=== PATIENT | female | born 2005 ===

== ENCOUNTER 2024-01-11 00:02 | Inpatient (IN) ==
--- NOTE | 2024-01-11 04:36 | Obstetrical Progress Note ---
Date of Service January 11, 2024 Subjective 18yo G1@ 38 + weeks admitted for labor Exam by nurse is 6/-2 FHR; CAT1 Ctx 1-3min. mild GBS neg Bedside sono; Vt anticipate VD Results & Data Vital Signs (Past 12 Hours) Vital Signs Temp Pulse Resp BP 01/11/24 04:23 86 122/77 01/11/24 00:27 36.9 C 16
--- OUTSIDE RECORDS SUMMARY | 2024-01-11 04:46 | External Medical Summary ---
Author Name Unknown Address Unknown Organization [id number]:[place] [facility] [place] [address] [facility] [address] Laboratory Report Ordering Provider Test Date Status EMILY NICOLAS 01/05/2024 10:00:35 Final Observation Date Value Abnormality Reference (Units ) Status SYNC LEUKOCYTES IN BLOOD BY AUTOMATED COUNT 01/05/2024 10:00:35 10.02 4.00-10.80 (K/uL) Final Segs 01/05/2024 10:00:35 73.6 Above high normal 35.0-65.0 (%) Final Lymphs % 01/05/2024 10:00:35 18.1 Below low normal 23.0-53.0 (%) Final Monos 01/05/2024 10:00:35 6.6 1.0-11.0 (%) Final Eosinophils 01/05/2024 10:00:35 0.8 0.0-6.0 (%) Final Basos 01/05/2024 10:00:35 0.2 0.0-2.0 (%) Final Immature Granulocyte, Percent 01/05/2024 10:00:35 0.7 0.0-2.0 (%) Final Absolute Segs 01/05/2024 10:00:35 7.38 1.80-8.00 (K/uL) Final Lymphs, absolute 01/05/2024 10:00:35 1.81 1.20-5.40 (K/ul) Final Monos, Abs 01/05/2024 10:00:35 0.66 0.00-1.10 (K/uL) Final Eos, Abs 01/05/2024 10:00:35 0.08 0.00-0.70 (K/uL) Final Basos, Abs 01/05/2024 10:00:35 0.02 0.00-0.20 (K/uL) Final Immature Granulocytes, Number 01/05/2024 10:00:35 0.07 0.00-0.20 (K/uL) Final Performing Location [facility] [facility] [place] [address] [facility] [address]
--- OUTSIDE RECORDS SUMMARY | 2024-01-11 04:46 | External Medical Summary ---
Author Name Unknown Address Unknown Organization [id number]:[place] [facility] [place] [facility] [address] [place] [address] Laboratory Report Ordering Provider Test Date Status EMILY NICOLAS 01/05/2024 10:00:35 Final Observation Date Value Abnormality Reference (Units ) Status WBC, Total 01/05/2024 10:00:35 10.02 4.00-10.80 (K/uL) Final RBC 01/05/2024 10:00:35 4.30 3.85-5.15 (M/uL) Final Hemoglobin 01/05/2024 10:00:35 12.2 12.0-15.3 (g/dL) Final HCT 01/05/2024 10:00:35 38.3 36.0-45.2 (%) Final MCV 01/05/2024 10:00:35 89.1 81.5-97.5 (fL) Final MCH 01/05/2024 10:00:35 28.4 27.0-34.0 (pg) Final MCHC 01/05/2024 10:00:35 31.9 32.0-36.0 (g/dL) Final RDW 01/05/2024 10:00:35 14.2 11.5-15.5 (%) Final Platelets 01/05/2024 10:00:35 230 140-400 (K/uL) Final MPV 01/05/2024 10:00:35 10.5 6.6-11.1 (fL) Final Nucleated erythrocytes/100 leukocytes [Ratio] in Blood by Automated count 01/05/2024 10:00:35 0 <=0 (/100 WBCs) Final Performing Location [facility] [place] [address] [place] [address]
--- OUTSIDE RECORDS SUMMARY | 2024-01-11 04:46 | External Medical Summary | Summary of Care ---
Author Name Unknown Organization [facility] Address [address] [place] [address] Phone [phone] Care Team Providers Care Food Operations Manager Name Role Phone Oliva Paredes MD Primary Care Prov ider Reason for Visit * Reason Comments IV Therapy Venofer Encounter Details Date Type Department Care Team (Latest Contact Info) Description 12/16/2023 11:00 AM EDT Hem/Onc Treatment Hematology/Oncology Treatment, [place] [address] [place] [address] Rupinder, Chair 6 Hem Onc Scene [address] [place] [address] Iron deficiency anemia, unspecified iron deficiency anemia type* Allergies No known active allergiesdocumented as of this encounter (statuses as of 01/02/2024) Medications Medication Sig Dispensed Refills Start Date End Date Status Plus 27-1 MG Oral TabletIndications:Pre gnancy examination or test, positive result Take 1 Tablet by mouth in the morning. 100 Tablet 3 09/23/2023 Active Iron-Vitamin C 65-125 MG Oral Tablet (Vitron C) Take 1 Tablet by mouth in the morning and 1 Tablet before bedtime. 60 Tablet 3 10/09/2023 Active B-12 1000 MCG Oral Tablet Take 1,000 mcg by mouth in the morning. 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 Iron deficiency anemia 11/24/2023 Encounter for supervision of normal first in third trimester 11/16/2023 Antepartum anemia complicating 024 Overview: Hgb at 25 weeks 11.0 Vitron C BID started, repeat CBC in 4 weeks Late care 10/09/2023 Overview: NOB at 24 weeks Medication exposure during first trimester of pr egnancy 10/09/2023 Overview: Had Nexplanon while , now removed. Estimated Date of Delivery Comme nts Yes 01/22/2024 Based on Ultraso und documented as of this encounter (statuses as of 01/02/2024) Immunizations Name Administration Dates Next Due COVID-19 mRNA, LNP-s, No Pre serve, 2-Dose Series (Pfizer) 03/16/2021 DTaP Dipth/Tet/Acell Pertussis (Infanrix), Peds 12/04/2005,03/26/2005,01/24/2005,11/11 H1N1 2009 Influenza, IM 08/02/2009,07/05/2009 HIB PRP-T, 4 dose (ActHib) 12/04/2005,,01/24/2005,11/11 HPV Vaccine, 9-Valent 02/08/2019,11/08/2015 Hep A - Hepatitis A (ped/ado le, 1-18 Yrs) 03/10/2007,09/08/2006 Hepatitis B, 0-19 yrs 06/05/2005,2004,08/24 IPV - Polio Virus Vaccine (Inact) 2008,06/05/2005,01/24/2005,11/11 MMR - Measles/Mumps/Rubella Vaccine 09/08/2008,0 09/05/2005 Meningococcal Conjugate Vacc ine (Menactra/Menveo) 11/08/2015 Meningococcal MCV4O Conjugat e Vaccine (Menveo) 08/08/2022 PPD 09/07/2018 Pneumococcal Conjugate Vacci ne, 7 Valent 07/06/2006,03/26/2005,01/24/2005,11/11 Seasonal Influenza, PF, 6 M & above, IM , (FluLaval or Fluzone) 11/08/2015,07/11/2014,06/15/2012,07/01,07/23/2010 TDAP (age 11 and older)(Adacel) 11/08/2015 Varicella Vaccine (Chicken Pox) 09/08/2008,09/05 documented as of this encounter Social History Tobacco Use Types Packs/Day Years Used Date Smoking Tobacco: Never Smokeless Tobacco: Never Tobacco Cessation:Counseling Given: Not Answered Alcohol Use Standard Drinks/Week Comments No 0 (1 standard drink = 0.6 oz pur e alcohol) AUDIT-C Answer Date Recorded Frequency of Alcohol Consumption Never 11/18/2018 Average Number of Drinks Not on file 019 Frequency of Binge Drinking Not on file 10/23 PHQ-2 Answer Date Recorded PHQ Adult Total Score 0 11/16/2023 Hunger Vital Sign Answer Date Recorded Within the past 12 months, y ou worried that your food would run out before you got the money to buy more. Never true 10/08/19 Within the past 12 months, t he food you bought just didn't last and you didn't have money to get more. Never true 10/08/2023 [place] Depression Scale Answer Date Recorded [place] Depression Scale Total 0 11/16/2023 The thought of harming myself has occurred to me . Never 11/16/2023 Estimated Date of Delivery Comme nts Yes 01/22/2024 Based on Ultraso und Sex and Gender Information Value Date Recorded Sex Assigned at Female 10/08/2023 1:23 PM EST Gender Identity Female 10/08/2023 1:23 PM EST Sexual Orientation Straight 10/08/2023 1: 23 PM EST Job Start Date Occupation Industry Not on file Not on file Not on file documented as of this encounter Last Filed Vital Signs Vital Sign Reading Time Taken Comments Blood Pressure 110/73 12/16/2023 11:20 AM EDT Pulse 91 12/16/2023 11:20 AM EDT Temperature 36.3 C (97.4 F) 12/16/2023 11:20 AM E DT Respiratory Rate 16 12/16/2023 11:20 AM EDT Oxygen Saturation 96% 12/16/2023 11:20 AM EDT Inhaled Oxygen Concentration - - Weight - - Height - - Body Mass Index - - documented in this encounter Nursing Notes * Talisha Demarco LPN - 12/16/2023 12:58 PM EDT IV therapy venofer completed. IV access disconnected, site cleaned and bandaged. Patient was discharged in stable condition. * Talisha Demarco LPN - 12/16/2023 11:21 AM EDT Patient arrived Chair 5 for IV therapy Venofer. Vital signs are stable. IV access successful at theleft lateral antecubital vein. Ankles showed some edema. Chair was reclined for elevation of the legs. Call cole within reach. documented in this encounter Plan of Treatment Upcoming Encounters Date Type Department Care Team (Late st Contact Info) Description 01/05/2024 9:00 AM EDT Office Visit Gynecology/Obstetrics [facility] [address] [facility] [facility] [place] [address] Eryn Chaney CNM [address] [facility] [address] 01/05/2024 10:10 AM EDT [facility] [address] [facility] [place] [phone] VargheseNaima montoya [facility] [address] [facility] [address] 01/07/2024 9:30 AM EDT Pharmacy Pharmacy, [place] [address] [place], [place] [phone] Clinic, [facility] [address] [place] [address] Health Maintenance Due Date Last Done Comments COVID-19 Vaccine ( season) 2023 03/16/2021 Yearly Wellness Visit 10/06/2023 10/06/2022, 019 Influenza Vaccine (FLU shot) (Season Ended) 2024 11/08/2015, 07/11/2014, 06/15/2012, Additional history exists Gonorrhea / Chlamydia Screen 10/08/2024 10/08/2023, 10/06/2022 Depression Screening 11/15/2024 11/16/2023 DTaP,Tdap,and Td Vaccines (6 - Td or Tdap) 11/07/2025 11/08/2015, 12/04/2005, 03/26/2005, Additional history exists Hepatitis B Completed 06/05/2005, 09/25, 2004 GARDASIL-HPV IMMUNIZATION SERIES Completed 02/08/2019, 11/08/2015 MENINGOCOCCAL (MENACTRA/MENVEO) Completed 08/08/2022, 11/08/2015 Pneumococcal Vaccine: Pediatrics (0 to 5 Years) and At-Risk Patients (6 to 64 Years) Aged Out No longer eligible based on patient's age to complete this topic documented as of this encounter Medical Devices Not on filedocumented as of this encounter Visit Diagnoses Diagnosis Iron deficiency anemia, unspecified iron deficiency anemia type- Primary documented in this encounter Administered Medications Inactive Administered Medications - up to 3 most recent administrations Medication Order MAR Action Action Date Dose Rate Site Iron Sucrose (Venofer) 300 mg in NSS 250 mL ivpb 300 mg, IV Piggyback, ONCE, 1 dose, On Thu12/16/23 at 1300, Administer over 90 Minutes Start Infusion 12/16/2023 11:17 AM EDT 300 mg 193.33 mL/hr NSS infusion 500 mL, Intravenous, at 50 mL/hr, CONTINUOUS, Starting on Thu12/16/23 at 1230, Until Thu12/16/23 at 1340 Start Infusion 12/16/2023 11:17 AM EDT 500 mL 50 mL/hr documented in this encounter Care Teams Food Operations Manager Relationship Specialty Start Date End Date Oliav Paredes MD [address] [place] [address] [place] [phone] PCP - General Family Medicine 09/21/23 documented as of this encounter
--- OUTSIDE RECORDS SUMMARY | 2024-01-11 04:46 | External Medical Summary ---
Author Name Unknown Address Unknown Organization K01:LABORATORY [place] [address] [place] [address] Laboratory Report Ordering Provider Test Date Status EMILY NICOLAS 01/05/2024 10:00:35 Final Observation Date Value Abnormality Reference (Units ) Status Retic, % (auto) 01/05/2024 10:00:35 2.21 Above high normal 0.80-1.90 (%) Final Reticulocytes, Absolute 01/05/2024 10:00:35 95.0 31.3-100.1 (K/uL) Final Reticulocyte fraction, immature 01/05/2024 10:00:35 26.1 Above high normal 2.5-20.6 (%) Final Reticulocyte HGB 01/05/2024 10:00:35 32.2 29.7-37.4 (pg) Final Performing Location LABORATORY [facility] - [facility] [place] [address] [address]
--- OUTSIDE RECORDS SUMMARY | 2024-01-11 04:46 | External Medical Summary | Summary of Care ---
Author Name Unknown Organization [facility] Address [address] [place] [address] Phone [phone] Care Team Providers Care Metal Drilling Machine Operator Name Role Phone Oliva Paredes MD Primary Care Prov ider Reason for Visit * Reason Onset Date Comments Left Message Anemia Follow-Up 12/17/2023 Encounter Details Date Type Department Care Team (Late st Contact Info) Description 12/17/2023 2:30 PM EDT Pharmacy Pharmacy, [place] [address] [place], [place] [phone] Clinic, [facility] [address] [place], [place] [phone] Iron deficiency anemia, unspecified iron deficiency anemia type* Allergies No known active allergiesdocumented as of this encounter (statuses as of 12/17/2023) Medications Medication Sig Dispensed Refills Start Date [...] as of this encounter (statuses as of 12/17/2023) Active Problems Problem Noted Date Diagnosed Date [...] as of this encounter (statuses as of 12/17/2023) Immunizations Name Administration Dates Next Due COVID-19 mRNA, LNP-s, No Pre serve, 2-Dose Series (R[employer]) 03/16/2021 DTaP Dipth/Tet/Acell Pertussis (Infanrix), Peds 12/04/2005,03/26/2005,01/24/2005,11/11 [...] Date Smoking Tobacco: Never Smokeless Tobacco: Never Alcohol Use Standard Drinks/Week Comments No 0 [...] money to buy more. Never true 10/08/19 24 Within the past 12 months, t he food you bought just didn't last and you didn't have money to get more. Never true 10/08/2023 [place] Depression Scale Answer Date Recorded [place] Depression Scale Total 0 11/16/2023 The thought [...] on file documented as of this encounter Progress Notes * Ina Washburn RPh - 12/17/2023 4:21 PM EDT CBCd, ferritin, iron screen, retic panel, B12, FA ordered for 01/06/24. Ina Washburn, PharmD, BCPS Clinical Pharmacist [facility] (P: [phone]) 12/17/2023 4:21 PM * Irma Guadalupe, backing in machine tender - 12/17/2023 9:12 AM EDT Patient Phone Numbers MyG sent to patient. Patient received Venofer 300 mg x 3 on 11/30, 12/07 and 12/15. Labs due on 01/05. GA: [id number] Estimated Date of Delivery: 01/22/24 Pharmacist - please place appropriate lab orders. Thank you, Irma Guadalupe Firewall Administrator 12/17/2023,9:12 AM documented in this encounter Plan of Treatment Upcoming Encounters Date Type Department Care Team (Late st Contact Info) Description 01/01/2024 11:45 AM EDT Office Visit Gynecology/Obstetrics [facility] [address] [facility] [place] [address] Rebekah Rios PA-C [address] [facility] [place] [address] 01/06/2024 4:00 PM EDT Laboratory Laboratory, [facility] [address] [facility] [place] [phone] [facility] [address] 01/07/2024 9:30 AM EDT Pharmacy Pharmacy, [place] [address] [place] [address] Clinic, [facility] [address] [place] [address] Scheduled Orders Name Type Priority Associated Diagnoses Orde r Schedule CBC WITH WBC DIFFERENTIAL Lab Routine Iron deficiency anemia, unspecified iron deficiency anemia type Expected: 01/06/2024, Expires: 11/15/2024 IRON SCREEN, INCLUDING TIBC Lab Routine Iron deficiency anemia, unspecified iron deficiency anemia type Expected: 01/06/2024, Expires: 11/15/2024 FERRITIN Lab Routine Iron deficiency anemia, unspecified iron deficiency anemia type Expected: 01/06/2024, Expires: 11/15/2024 RETICULOCYTE PANEL Lab Routine Iron deficiency anemia, unspecified iron deficiency anemia type Expected: 01/06/2024, Expires: 11/15/2024 FOLIC ACID Lab Routine Iron deficiency anemia, unspecified iron deficiency anemia type Expected: 01/06/2024, Expires: 11/15/2024 VITAMIN B12 Lab Routine Iron deficiency anemia, unspecified iron deficiency anemia type Expected: 01/06/2024, Expires: 11/15/2024 Health Maintenance Due Date Last Done Comments [...] anemia type- Primary documented in this encounter Care Teams Metal Drilling Machine Operator Relationship Specialty Start Date End Date Oliva Paredes MD [address] [place] [address] [place] [address] PCP - General Family Medicine 09/21/23 documented as of this encounter
--- OUTSIDE RECORDS SUMMARY | 2024-01-11 04:46 | External Medical Summary ---
Author Name Unknown Address Unknown Organization K01[place] [facility] [place] [facility] [address] [facility] [address] Laboratory Report Ordering Provider Test Date Status EPI DIETRICH 01/05/2024 09:40:15 Final Observation Date Value Abnormality Reference (Units ) Status Streptococcus agalactiae DNA [Presence] in Specimen by SANTO with probe detection 01/05/2024 09:40:15 Negative Negative Final No Group B Streptococcus det ected by culture-enhanced PCR (amplified probe).
The collection of vaginal/rectal swab specimen combinations (FDA approved specimen type) is optimal for the detection of Group B Streptococcus. Single source collection (vaginal only or rectal only) or alternate specimen sources may lead to false negative results. Performing Location [facility] [facility] [place] [address] [facility] [address]
--- OUTSIDE RECORDS SUMMARY | 2024-01-11 04:46 | External Medical Summary ---
Author Name Unknown Address Unknown Organization K01:LAB[facility]ATORY [facility] [place] [address] [place] [address] Laboratory Report Ordering Provider Test Date Status EMILY NICOLAS 01/05/2024 10:00:35 Final Observation Date Value Abnormality Reference (Units ) Status Vitamin B12 01/05/2024 10:00:35 792 025-4646 (pg/mL) Final Performing Location LABORATORY [facility] [place] - [address] [place] [address]
--- OUTSIDE RECORDS SUMMARY | 2024-01-11 04:46 | External Medical Summary | Summary of Care ---
Author Name Unknown Organization [facility] Address [address] [place] [address] Phone [phone] Care Team Providers Care Enamel Sprayer Name Role Phone Oliva Paredes MD Primary Care Prov ider Encounter Details Date Type Department Care Team (Late Contact Info) Description 12/15/2023 Orders Only Pharmacy, [place] [address] [place] [address] Radames Perdomo, [facility] [address] [place] [address] Allergies No known active allergiesdocumented as of this encounter (statuses as of 12/15/2023) Medications Medication Sig Dispensed Refills Start Date [...] as of this encounter (statuses as of 12/15/2023) Active Problems Problem Noted Date Diagnosed Date Iron deficiency anemia 11/24/2023 Encounter for supervision [...] as of this encounter (statuses as of 12/15/2023) Immunizations Name Administration Dates Next Due COVID-19 [...] money to get more. Never true 10/08/2023 [place] Depression Scale Answer Date Recorded [place] Depression Scale Total 0 11/16/2023 The thought [...] on file documented as of this encounter Plan of Treatment Upcoming Encounters Date Type Department Care Team (Late st Contact Info) Description 12/16/2023 11:00 AM EDT Hem/Onc Treatment Hematology/Oncology Treatment, [place] [address] [place] [phone] Rupinder, Chair 6 Hem Onc Scenery [address] [facility] [address] 12/16/2023 1:45 PM EDT Office Visit Gynecology/Obstetrics [facility] [address] [place] [address] BackerShaista CRNP [address] [place] [address] 12/17/2023 2:30 PM EDT Pharmacy Pharmacy, [place] [address] [place] [address] Clinic, [place] [address] [place] [address] Health Maintenance Due Date Last Done Comments [...] Not on filedocumented as of this encounter Care Teams Enamel Sprayer Relationship Specialty Start Date End Date Oliva Paredes MD [address] [place] [address] [place] [address] PCP - General Family Medicine 09/21/23 documented as of this encounter
--- OUTSIDE RECORDS SUMMARY | 2024-01-11 04:46 | External Medical Summary ---
Author Name Unknown Address Unknown Organization K01:[facility] [facility] [place] [address] [place] [address] Laboratory Report Ordering Provider Test Date Status FIDENCIOEMILY 01/05/2024 10:00:35 Final Observation Date Value Abnormality Reference (Units ) Status Iron 01/05/2024 10:00:35 84 33-151 (ug /dL) Final Iron-binding capacity 01/05/2024 10:00:35 417 250-425 (ug/dL) Final Transferrin Sat % 01/05/2024 10:00:35 20 15 -55 (%) Final Performing Location [facility] [place] [address] [place] [address]
--- OUTSIDE RECORDS SUMMARY | 2024-01-11 04:46 | External Medical Summary | Summary of Care ---
Author Name Unknown Organization [facility] Address [address] [place] [place] [address] Phone [phone] Care Team Providers Care Wrap Turner Name Role Phone Oliva Paredes MD Primary Care Prov ider Encounter Details Date Type Department Care Team (Late st Contact Info) Description 01/06/2024 Telephone Gynecology/Obstetrics [facility] [address] [facility] [place] [address] Eryn Chaney, [facility] [address] [place] [address] Allergies No known active allergiesdocumented as of this encounter (statuses as of 01/06/2024) Medications Medication Sig Dispensed Refills Start Date [...] as of this encounter (statuses as of 01/06/2024) Active Problems Problem Noted Date Diagnosed Date [...] as of this encounter (statuses as of 01/06/2024) Immunizations Name Administration Dates Next Due COVID-19 mRNA, LNP-s, No Pre serve, 2-Dose Series ([employer]) 03/16/2021 DTaP Dipth/Tet/Acell Pertussis (Infanrix), Peds 12/04/2005,03/26/2005,01/24/2005,11/11 [...] money to get more. Never true 10/08/2023 [place] Depression Scale Answer Date Recorded [place] Depression Scale Total 0 11/16/2023 The thought [...] on file documented as of this encounter Miscellaneous Notes * Telephone Encounter - Rachele Leonard LPN - 01/06/2024 12:15 PM EDT ----- Message from Eryn Chaney CNM sent at 01/06/2024 11:50 AM EDT ----- Please let patient know her GBS swab was negative and her urine buprenorphine screen was negative. Thanks! Eryn Chaney CNM documented in this encounter Plan of Treatment Upcoming Encounters Date Type Department Care Team (Late st Contact Info) Description 01/07/2024 9:30 AM EDT Pharmacy Pharmacy, [place] [address] [place], [place] [phone] Clinic, [facility] [address] [place] [address] 01/12/2024 9:30 AM EDT Office Visit Gynecology/Obstetrics [facility] [address] [facility] [place] [address] Ina Diaz, [place] [address] [facility] [place] [address] Health Maintenance Due Date Last Done Comments [...] filedocumented as of this encounter Care Teams Wrap Turner Relationship Specialty Start Date End Date Oliva Paredes MD [address] [place] [address] [place] [address] PCP - General Family Medicine 09/21/23 documented as of this encounter
--- OUTSIDE RECORDS SUMMARY | 2024-01-11 04:46 | External Medical Summary | Summary of Care ---
Author Name Unknown Organization [facility] Address [address] [place] [address] Phone [phone] Care Team Providers Care Stope Miner Name Role Phone Oliva Paredes MD Primary Care Prov ider Reason for Visit * Reason Comments IV Therapy Venofer Encounter Details Date Type Department Care Team (Latest Contact Info) Description 12/16/2023 11:00 AM EDT Hem/Onc Treatment Hematology/Oncology Treatment, [place] [address] [place] [address] Rupinder, Chair 6 Hem Onc Scene [address] [place] [address] Iron deficiency anemia, unspecified iron deficiency anemia type* Allergies No known active allergiesdocumented as of this encounter (statuses as of 12/16/2023) Medications Medication Sig Dispensed Refills Start Date [...] as of this encounter (statuses as of 12/16/2023) Active Problems Problem Noted Date Diagnosed Date [...] as of this encounter (statuses as of 12/16/2023) Immunizations Name Administration Dates Next Due COVID-19 mRNA, LNP-s, No Pre serve, 2-Dose Series (Pfizer) 03/16/2021 DTaP Dipth/Tet/Acell Pertussis (Infanrix), Peds 12/04/2005,03/26/2005,01/24/2005,11/11 H1N1 2008 Influenza, IM 08/02/2009,07/05/2009 HIB PRP-T, 4 dose [...] money to get more. Never true 10/08/2023 [place] Depression Scale Answer Date Recorded [place] Depression Scale Total 0 11/16/2023 The thought [...] Team (Late st Contact Info) Description 12/16/2023 1:45 PM EDT Office [facility] [address] [facility] [place] [address] Backer, SURYA Norman [address] [facility] [place] [address] 12/17/2023 2:30 PM EDT Pharmacy Pharmacy, [place] [address] [place] [address] Clinic, [place] [address] [place] [address] Health Maintenance Due Date Last Done Comments [...] Primary documented in this encounter Administered Medications Active Administered Medications - up to 3 most recent administrations Medication Order MAR Action Action Date Dose Rate Site diphenhydrAMINE (Benadryl) inj 50 mg 50 mg, IV Push, ONCE PRN Other, Hypersensitivity Reaction, Starting on Thu12/16/23 at 1115, Until Tawana 12/17/23 at 1114, For 24 hours EPINEPHrine 1 MG/ML inj 0.3 mg 0.3 mg, Intramuscular, ONCE PRN Other, Hypersensitivity Reaction or Anaphylaxis, Starting on Thu12/16/23 at 1115, Until Tawana 12/17/23 at 1114, For 24 hours hEParin 100 UNIT/ML Lock Flush inj 500 Units 500 Units (5 mL), IV Lock, PRN Other, IV Flush, Starting on Thu12/16/23 at 1115, Until Tawana 12/17/23 at 1114, For 24 hours, Do not flush if lock, PICC, or central line not in place; IV infusing or unable to flush. Hydrocortisone Sod Suc (PF) (Solu-Cortef) inj 100 mg 100 mg, IV Push, ONCE PRN Other, Hypersensitivity Reaction, Starting on Thu12/16/23 at 1115, Until Tawana 12/17/23 at 1114, For 24 hours NSS infusion 500 mL, Intravenous, at 50 mL/hr, CONTINUOUS, Starting on Thu12/16/23 at 1230, Until Thu12/16/23 at 2229 Start Infusion 12/16/2023 11:17 AM EDT 500 mL 50 mL/hr oxygen GAS Inhalation, OXYGEN, First dose on Thu12/16/23 at 1600, Until Discontinued, Device/Managed by: Low Flow Device, Goal SPO2 (%): 91-95, Starting Device: Nasal Cannula, Initial Flow Rate (LPM): 2, Lowest Support: Nasal Cannula: Flow 0-6 LPM. Titrate up/down by 1 LPM., Higher Support: Non-Rebreather (NRB) Mask: Minimum of 10 LPM. Titrate to maintain bag inflation., Titration Interval: Q2 minutes and as needed., Notify Provider: For sudden DECREASE in resting SPO2 to less than 85% and when escalating delivery device., Wean patient off Oxygen when the oxygen saturation is greater than or equal to 93% sodium chloride 0.9 % flush central line 10 mL 10 mL, IV Push, PRN Other, IV Flush, Starting on Thu12/16/23 at 1115, Until Tawana 12/17/23 at 1114, For 24 hours, Do not flush if lock, PICC, or central line not in place; IV infusing or unable to flush. Inactive Administered Medications - up to 3 most recent administrations Medication Order MAR Action Action Date Dose Rate Site Iron Sucrose (Venofer) 300 mg in NSS 250 mL ivpb 300 mg, IV Piggyback, ONCE, 1 dose, On Thu12/16/23 at 1300, Administer over 90 Minutes Start Infusion 12/16/2023 11:17 AM EDT 300 mg 193.33 mL/hr documented in this encounter Care Teams Stope Miner Relationship Specialty Start Date End Date Oliva Paredes MD [address] [place] [address] [place] [id number] PCP - General Family Medicine 09/21/23 documented as of this encounter
--- OUTSIDE RECORDS SUMMARY | 2024-01-11 04:46 | External Medical Summary | Summary of Care ---
Author Name Unknown Organization [facility] Address [address] [place] [address] Phone [phone] Care Team Providers Care Coal Cutter Name Role Phone Oliva Paredes MD Primary Care Prov ider Reason for Visit * Reason Comments IV Therapy Venofer. Encounter Details Date Type Department Care Team (Latest Contact Info) Description 12/01/2023 11:00 AM EDT Hem/Onc Treatment Hematology/Oncology Treatment, [place] [address] [place] [address] Rupinder, Chair 6 Hem Onc Scene [address] [place] [address] Iron deficiency anemia, unspecified iron deficiency anemia type* Allergies No known active allergiesdocumented as of this encounter (statuses as of 01/05/2024) Medications Medication Sig Dispensed Refills Start Date [...] as of this encounter (statuses as of 01/05/2024) Active Problems Problem Noted Date Diagnosed Date [...] as of this encounter (statuses as of 01/05/2024) Immunizations Name Administration Dates Next Due COVID-19 [...] money to get more. Never true 10/08/2023 [place] Depression Scale Answer Date Recorded [place] Depression Scale Total 0 11/16/2023 The thought [...] Sign Reading Time Taken Comments Blood Pressure 129/76 12/01/2023 11:00 AM EDT Pulse 98 12/01/2023 11:00 AM EDT Temperature 36.7 C (98.1 F) 12/01/2023 11:00 AM E DT Respiratory Rate 18 12/01/2023 11:00 AM EDT Oxygen Saturation 98% 12/01/2023 11:00 AM EDT Inhaled Oxygen Concentration - - Weight - - Height - - Body Mass Index - - documented in this encounter Nursing Notes * Linda Cordoba RN - 12/01/2023 12:46 PM EDT Goals: Patient will remain free from injury. Possible barriers to meeting goals: Fall risk d/t ambulation with IV pole. Stability of the patient: Moderately stable - low risk of patient condition declining or worsening Summary regarding today's goals: Met: Patient remained free of injury. Patient tolerated infusion well. Discharged in stable condition. * Linda Cordoba RN - 12/01/2023 11:17 AM EDT Chair 3. Patient arrived for Venofer infusion 08/26 with no acute complaints. Patient was oriented to infusionprocess and infusion room, call cole was given to patient. Patient verbalized understanding. PIV established. Safety and Risk for Injury Patient will remain free from injury. Ensure appropriate safety devices are available. Provide and maintain safe environment. documented in this encounter Plan of Treatment Upcoming Encounters Date Type Department Care Team (Late st Contact Info) Description 01/05/2024 9:00 AM EDT [facility] [address] [facility] [place] [address] Eryn Chaney CNM [address] [place] [address] 01/05/2024 10:10 AM EDT [facility] [address] [facility] [place] [phone] [facility] [address] [facility] [place] [address] 01/07/2024 9:30 AM EDT Pharmacy Pharmacy, [place] [address] [place], [place] [id number] Clinic, [facility] [address] [place] [address] Health Maintenance Due Date Last Done Comments [...] mg, IV Piggyback, ONCE, 1 dose, On Thu12/01/23 at 1230, Administer over 90 Minutes Start Infusion 12/01/2023 11:10 AM EDT 300 mg 166.67 mL/hr NSS infusion 500 mL, Intravenous, at 50 mL/hr, CONTINUOUS, Starting on Thu12/01/23 at 1200, Until Thu12/01/23 at 1647 Start Infusion 12/01/2023 11:10 AM EDT 500 mL 50 mL/hr documented in this encounter Care Teams Coal Cutter Relationship Specialty Start Date End Date Oliva Paredes MD [address] [place] [address] [place]INE Ferreira [phone] PCP - General Family Medicine 09/21/23 documented as of this encounter
--- OUTSIDE RECORDS SUMMARY | 2024-01-11 04:46 | External Medical Summary | Summary of Care ---
Author Name Unknown Organization [facility] Address [address] [place] [address] Phone [phone] Care Team Providers Care Dish Network Installer Name Role Phone Oliva Paredes MD Primary Care Prov ider Reason for Visit * Reason Comments IV Therapy venofer Encounter Details Date Type Department Care Team (Latest Contact Info) Description 12/08/2023 3:00 PM EDT Hem/Onc Treatment Hematology/Oncology Treatment, [place] [address] [place] [address] Rupinder, Chair 6 Hem Onc Scene [address] [place] [address] Iron deficiency anemia, unspecified iron deficiency anemia type* Allergies No known active allergiesdocumented as of this encounter (statuses as of 12/08/2023) Medications Medication Sig Dispensed Refills Start Date [...] as of this encounter (statuses as of 12/08/2023) Active Problems Problem Noted Date Diagnosed Date [...] as of this encounter (statuses as of 12/08/2023) Immunizations Name Administration Dates Next Due COVID-19 [...] money to get more. Never true 10/08/2023 [place] Depression Scale Answer Date Recorded [place] Depression Scale Total 0 11/16/2023 The thought [...] Sign Reading Time Taken Comments Blood Pressure 121/72 12/08/2023 2:53 PM EDT Pulse 93 12/08/2023 2:53 PM EDT Temperature 36.8 C (98.3 F) 12/08/2023 2:53 PM ED T Respiratory Rate 16 12/08/2023 2:53 PM EDT Oxygen Saturation 96% 12/08/2023 2:53 PM EDT Inhaled Oxygen Concentration - - Weight - - Height - - Body Mass Index - - documented in this encounter Nursing Notes * Linda Cordoba RN - 12/08/2023 4:42 PM EDT Safety and Risk for Injury Patient will remain free from injury. Ensure appropriate safety devices are available. Provide and maintain safe environment. Goals: Patient will remain free from injury. Possible barriers to meeting goals: Fall risk d/t ambulation with IV pole. Stability of the patient: Moderately stable - low risk of patient condition declining or worsening Summary regarding today's goals: Met: Patient remained free of injury. Patient tolerated infusion well. Discharged in stable condition. * Talisha Demarco LPN - 12/08/2023 3:10 PM EDT Patient arrived for IV therapy Venofer Chair 9. Vital signs are stable. IV attempt successful at the left metacarpal vein. Patient tolerated and NSS connected and started with Venofer. documented in this encounter Plan of Treatment Upcoming Encounters Date Type Department Care Team (Late st Contact Info) Description 12/16/2023 11:00 AM EDT Hem/Onc Treatment Hematology/Oncology Treatment, [place] [address] [place] [address] Rupinder, Chair 6 Hem Onc Scenery 200 [facility] [place] [address] 12/16/2023 1:45 PM EDT Office Visit Gynecology/Obstetrics [facility] [address] [place] [address] Backer, SURYA Norman [address] [place] [address] 12/17/2023 2:30 PM EDT Pharmacy Pharmacy, [place] [address] [place], [place] [id number] Clinic, [place] [address] [place] [address] Health Maintenance Due Date Last Done Comments [...] ONCE PRN Other, Hypersensitivity Reaction, Starting on Thu12/08/23 at 1453, Until Thu12/09/23 at 1452, For 24 hours EPINEPHrine 1 MG/ML inj 0.3 mg 0.3 mg, Intramuscular, ONCE PRN Other, Hypersensitivity Reaction or Anaphylaxis, Starting on Thu12/08/23 at 1453, Until Thu12/09/23 at 1452, For 24 hours hEParin 100 UNIT/ML Lock Flush inj 500 Units 500 Units (5 mL), IV Lock, PRN Other, IV Flush, Starting on Thu12/08/23 at 1453, Until Thu12/09/23 at 1452, For 24 hours, Do not flush if lock, PICC, or central line not in place; IV infusing or unable to flush. Hydrocortisone Sod Suc (PF) (Solu-Cortef) inj 100 mg 100 mg, IV Push, ONCE PRN Other, Hypersensitivity Reaction, Starting on Thu12/08/23 at 1453, Until Thu12/09/23 at 1452, For 24 hours NSS infusion 500 mL, Intravenous, at 50 mL/hr, CONTINUOUS, Starting on Thu12/08/23 at 1600, Until Thu12/09/23 at 0159 Start Infusion 12/08/2023 3:03 PM EDT 500 mL 50 mL/hr oxygen GAS Inhalation, OXYGEN, First dose on Thu12/08/23 at 1600, Until Discontinued, Device/Managed by: Low [...] Push, PRN Other, IV Flush, Starting on Thu12/08/23 at 1453, Until Thu12/09/23 at 1452, For 24 hours, Do not flush if lock, PICC, or central line not in place; IV infusing or unable to flush. Inactive Administered Medications - up to 3 most recent administrations Medication Order MAR Action Action Date Dose Rate Site Iron Sucrose (Venofer) 300 mg in NSS 250 mL ivpb 300 mg, IV Piggyback, ONCE, 1 dose, On Thu12/08/23 at 1630, Administer over 90 Minutes Start Infusion 12/08/2023 3:04 PM EDT 300 mg 193.33 mL/hr documented in this encounter Care Teams Dish Network Installer Relationship Specialty Start Date End Date Oliva Paredes MD [address] [place] [address] [place] Ferreira [phone] PCP - General Family Medicine 09/21/23 documented as of this encounter
--- OUTSIDE RECORDS SUMMARY | 2024-01-11 04:46 | External Medical Summary | Summary of Care ---
Author Name Unknown Organization [facility] Address [address] [place] [address] Phone [phone] Care Team Providers Care Police Dispatcher Name Role Phone Oliva Paredes MD Primary Care Prov ider Reason for Visit * Reason Comments Outpatient Testing Encounter Details Date Type Department Care Team (Late st Contact Info) Description 01/05/2024 10:10 AM EDT Laboratory Laboratory, [facility] [address] [facility] [place] [id number] [facility] [address] [place] [id number] Iron deficiency anemia, unspecified iron deficiency anemia type Allergies No known active allergiesdocumented as of [...] money to get more. Never true 10/08/2023 [place] Depression Scale Answer Date Recorded [place] Depression Scale Total 0 11/16/2023 The thought [...] Description 01/07/2024 9:30 AM EDT Pharmacy Pharmacy, [place] [address] [place] [address] Clinic, [place] [address] [place] [address] 01/12/2024 9:30 AM EDT Office Visit Gynecology/Obstetrics [facility] 132 [facility] [place] [address] Ina Diaz, [address] [place] [address] Pending Results Name Type Priority Associated Diagnoses Date /Time CBC WITH WBC DIFFERENTIAL Lab Routine Iron deficiency anemia, unspecified iron deficiency anemia type 01/05/2024 10:00 AM EDT IRON SCREEN, INCLUDING TIBC Lab Routine Iron deficiency anemia, unspecified iron deficiency anemia type 01/05/2024 10:00 AM EDT FERRITIN Lab Routine Iron deficiency anemia, unspecified iron deficiency anemia type 01/05/2024 10:00 AM EDT RETICULOCYTE PANEL Lab Routine Iron deficiency anemia, unspecified iron deficiency anemia type 01/05/2024 10:00 AM EDT FOLIC ACID Lab Routine Iron deficiency anemia, unspecified iron deficiency anemia type 01/05/2024 10:00 AM EDT VITAMIN B12 Lab Routine Iron deficiency anemia, unspecified iron deficiency anemia type 01/05/2024 10:00 AM EDT CBC Lab Routine Iron deficiency anemia, unspecified iron deficiency anemia type 01/05/2024 10:00 AM EDT DIFFERENTIAL, AUTOMATED Lab Routine Iron deficiency anemia, unspecified iron deficiency anemia type 01/05/2024 10:00 AM EDT Health Maintenance Due Date Last Done Comments [...] deficiency anemia, unspecified iron deficiency anemia type documented in this encounter Care Teams Police Dispatcher Relationship Specialty Start Date End Date Oliva Paredes MD [address] [place] [address] [place] Fer[place] [address] PCP - General Family Medicine 09/21/23 documented as of this encounter
--- OUTSIDE RECORDS SUMMARY | 2024-01-11 04:46 | External Medical Summary | Summary of Care ---
Author Name Unknown Organization [facility] Address [address] [facility] [place] [address] Phone [phone] Care Team Providers Care Historical Society Director Name Role Phone Oliva Paredes MD Primary Care Prov ider Reason for Visit * Reason Comments Return Visit Encounter Details Date Type Department Care Team ([facility] Contact Info) Description 12/16/2023 1:45 PM EDT Office Visit Gynecology/Obstetric s [place] [address] [place] [address] BackerShaista CRNP [address] [place] [address] Encounter for supervision of normal first in third trimester*; Antepartum anemia complicating ; Late care; Medication exposure during first trimester of ; Obesity in , antepartum Allergies No known active allergiesdocumented as of [...] money to get more. Never true 10/08/2023 [place] Depression Scale Answer Date Recorded [place] Depression Scale Total 0 11/16/2023 The thought [...] Sign Reading Time Taken Comments Blood Pressure 118/64 12/16/2023 1:44 PM EDT Pulse - - Temperature - - Respiratory Rate - - Oxygen Saturation - - Inhaled Oxygen Concentration - - Weight 103 kg (227 lb) 12/16/2023 1:44 PM EDT Height - - Body Mass Index - - documented in this encounter Progress Notes * Shaista Munson CRNP - 12/16/2023 1:52 PM EDT 34w5d Baby is active. No ctx, leaking, bleeding. Receiving iron infusions. Provided w/labor instructions.Audible auscultation with movement. Discussed GBS swab at next visit. SURYA Mckinley * Crystal Milian LPN - 12/16/2023 1:43 PM EDT 34w5d Denies vaginal bleeding/rom + movement Labor instructions given No new concerns documented in this encounter Plan of Treatment Upcoming Encounters Date Type Department Care Team (Late st Contact Info) Description 12/17/2023 2:30 PM EDT Pharmacy Pharmacy, [place] [address] [place] [address] Clinic, [facility] [address] [place] [address] 01/01/2024 11:45 AM EDT Office Visit Gynecology/Obstetrics [facility] [address] [place] [address] Rebekah Rios PA-C [address] [place] [id number] Health Maintenance Due Date Last Done Comments [...] as of this encounter Visit Diagnoses Diagnosis Encounter for supervision of normal first in third trimester- Primary Supervision of normal first Antepartum anemia complicating Anemia, antepartum Late care Insufficient care Medication exposure during first trimester of Supervision of other high-risk Obesity in , antepartum Obesity complicating , childbirth, or the puerperium, antepartum condition or complication documented in this encounter Care Teams Historical Society Director Relationship Specialty Start Date End Date Oliva Paredes MD [address] [place] [address] [place] Fer[place] [phone] PCP - General Family Medicine 09/21/23 documented as of this encounter
--- OUTSIDE RECORDS SUMMARY | 2024-01-11 04:46 | External Medical Summary | Summary of Care ---
Author Name Unknown Organization [facility] Address [address] [place] [address] Phone [phone] Care Team Providers Care Information Director Name Role Phone Oliva Paredes MD Primary Care Prov ider Reason for Visit * Reason Comments Return Visit Encounter Details Date Type Department Care Team ([facility] Contact Info) Description 01/05/2024 9:00 AM EDT Office Visit Gynecology/Obstetric s [facility] [address] [place] [address] Eryn Chaney, GIUSEPPE [address] [facility] [place] [address] Antepartum anemia complicating *; Late care; Medication exposure during first trimester of ; Encounter for supervision of normal first in third trimester; Obesity in , antepartum Allergies No known [...] mRNA, LNP-s, No Pre serve, 2-Dose Series (Ruby & Revolver) 03/16/2021 DTaP Dipth/Tet/Acell Pertussis (Infanrix), Peds 12/04/2005,03/26/2005,01/24/2005,11/11 [...] money to get more. Never true 10/08/2023 [place] Depression Scale Answer Date Recorded [place] Depression Scale Total 0 11/16/2023 The thought [...] Sign Reading Time Taken Comments Blood Pressure 132/84 01/05/2024 9:07 AM EDT Pulse - - Temperature - - Respiratory Rate - - Oxygen Saturation - - Inhaled Oxygen Concentration - - Weight 103 kg (227 lb) 01/05/2024 9:07 AM EDT Height 167.6 cm (5' 6") 01/05/2024 9:07 AM EDT Body Mass Index 36.64 01/05/2024 9:07 AM EDT documented in this encounter Progress Notes * Eryn Chaney CNM - 01/05/2024 9:12 AM EDT Tanya Neal is a 18 year old female here for her routine OB appointment at 37w4d Her Estimated Date of Delivery: 01/22/24 REVIEW OF SYSTEMS: She affirms movement. Denies vaginal bleeding, LOF, contractions, N/V, headaches, vision changes, and RUQ pain. Having cramping and low back pain a few times daily. [place] [address] from [facility] where she plans delivery. She has not been in for an OB visit since . Agreeable to a urine drug screen today due to lapse in care. PHYSICAL EXAM: Filed Vitals: 01/05/24 0907 BP: 132/84 Weight: 103 kg (227 lb) Height: 1.676 m (5' 6") +FHT 140bpm Fundal height: 37cm Cervix: 4cm/80%/-2 GBS swab collected today Senior Manufacturing Technician Documentation Provider requested silo filler. Name of silo filler: Rachele Leonard LPN ASSESSMENT/PLAN: (O99.019) Antepartum anemia complicating Plan: -Followed by blood management for iron infusions (O99.210) Obesity in , antepartum Plan: -Pregravid BMI 32.94 (Z34.03) Encounter for supervision of normal first in third trimester Plan: -urine drug screen ordered with patient's permission due to lapse in care - labor precautions and kick counts reviewed in detail - GBS swab collected today - RTO in 1 week Eryn Chaney CNM documented in this encounter Nursing Notes * Chichi Mcmillan LPN - 01/05/2024 9:09 AM EDT 37w4d GBS today Denies concerns documented in this encounter Plan of Treatment Upcoming Encounters Date Type Department Care Team (Late st Contact Info) Description 01/07/2024 9:30 AM EDT Pharmacy Pharmacy, [place] [address] [place] [address] Clinic, [facility] [address] [place] [address] 01/12/2024 9:30 AM EDT Office Visit Gynecology/Obstetrics [facility] [address] [facility] [place] [address] Ina Diaz, GIUSEPPE 400 [facility] [place] [address] Pending Results Name Type Priority Associated Diagnoses Date /Time GROUP B STREP CULTURE/PCR Lab Routine Encounter for supervision of normal first in third trimester 01/05/2024 9:40 AM EDT Scheduled Orders Name Type Priority Associated Diagnoses Orde r Schedule TOXICOLOGY, URINESCREEN W/ CONFIRMATION Lab Routine Encounter for supervision of normal first in third trimester Ordered: 01/05/2024 Health Maintenance Due Date Last Done Comments [...] Not on filedocumented as of this encounter Procedures Procedure Name Priority Date/Time Associated Diagnosis Comments BUPRENORPHINE, URINE SCREEN W/ CONFIRMATION Routine 01/05/2024 9:40 AM EDT Encounter for supervision of normal first in third trimester documented in this encounter Results * BUPRENORPHINE, URINE SCREEN W/ CONFIRMATION (01/05/2024 9:40 AM EDT) Buprenorphine Screen, U Negative Negative 01/05/2024 4:30 PM EDT [facility]ORY [facility] Urine Non-blood Collection / Unknown 01/05/2024 9:40 AM EDT 01/05/2024 9:40 AM EDT Narrative LABORATORY [facility] - 01/05/2024 4:30 PM EDT Cutoff Concentration: Drug Level Buprenorphine 5 ng/mL Screening results are presumptive and can only be used for medical purposes. Positive screening results are reflexed to confirmatory testing. Eryn Chaney [facility] URINE ORDERABLES [facility] [address] [place] [address] documented in this encounter Visit Diagnoses Diagnosis Antepartum anemia complicating - Primary Anemia, antepartum Late care Insufficient care Medication exposure during first trimester of Supervision of other high-risk Encounter for supervision of normal first in third trimester Supervision of normal first Obesity in , antepartum Obesity complicating , childbirth, or the puerperium, antepartum condition or complication documented in this encounter Care Teams Information Director Relationship Specialty Start Date End Date Oliva Paredes MD [address] [place] [address] [place] [address] PCP - General Family Medicine 09/21/23 documented as of this encounter
--- OUTSIDE RECORDS SUMMARY | 2024-01-11 04:46 | External Medical Summary ---
Author Name Unknown Address Unknown Organization K01:LABORATORY [facility] - [address] [facility] [address] [facility] [place] [address] Laboratory Report Ordering Provider Test Date Status EPI DIETRICH 01/05/2024 09:40:15 Final Cutoff Concentration:
Dr ug Level
Buprenorphine 5 ng/mL

Screening results are presumptive and can only be used for medical purposes. Positive screening results are reflexed to confirmatory testing. Observation Date Value Abnormality Reference (Units ) Status Buprenorphine [Presence] in Urine 01/05/2024 09:40:15 Negative Negative Final Performing Location LABORATORY [facility] - [address] [facility] [place] [address]
--- OUTSIDE RECORDS SUMMARY | 2024-01-11 04:46 | External Medical Summary ---
Author Name Unknown Address Unknown Organization K01:LABORATORY C - [address] [place] [address] Laboratory Report Ordering Provider Test Date Status EMILY NICOLAS 01/05/2024 10:00:35 Final Observation Date Value Abnormality Reference (Units ) Status Ferritin 01/05/2024 10:00:35 173 Above high normal 13 -150 (ng/mL) Final Performing Location [facility]AT[facility] - [address] [place] [place] [address]
--- OUTSIDE RECORDS SUMMARY | 2024-01-11 04:46 | External Medical Summary | Summary of Care ---
Author Name Unknown Organization [facility] Address [address] [place] [address] Phone [phone] Care Team Providers Care Icing And Glaze Maker Name Role Phone Oliva Paredes MD Primary Care Prov ider Reason for Visit * Reason Comments IV Therapy venofer Encounter Details Date Type Department Care Team (Latest Contact Info) Description 12/08/2023 3:00 PM EDT Hem/Onc Treatment Hematology/Oncology Treatment, [place] [address] [place] [address] Rupinder, Chair 6 Hem Onc [place] [address] [place] [address] Iron deficiency anemia, unspecified iron deficiency anemia type* Allergies No known active allergiesdocumented as of this encounter (statuses as of 01/01/2024) Medications Medication Sig Dispensed Refills Start Date [...] as of this encounter (statuses as of 01/01/2024) Active Problems Problem Noted Date Diagnosed Date [...] as of this encounter (statuses as of 01/01/2024) Immunizations Name Administration Dates Next Due COVID-19 [...] money to get more. Never true 10/08/2023 [place] Depression Scale Answer Date Recorded [place] Depression Scale Total 0 11/16/2023 The thought [...] 9:00 AM EDT Office Visit Gynecology/Obstetrics [facility] [address] [facility] [address] Eryn Chaney CNM [address] [place] [address] 01/05/2024 10:10 AM EDT Laboratory [facility] 132 [facility] [place] [phone] VargheseNaima montoya [facility] 132 [facility] [address] 01/07/2024 9:30 AM EDT Pharmacy Pharmacy, [place] [address] [place], [place] [phone] Clinic, [facility] [address] [place], [place] [phone] Health Maintenance Due Date Last Done Comments [...] 3:04 PM EDT 300 mg 193.33 mL/hr NSS infusion 500 mL, Intravenous, at 50 mL/hr, CONTINUOUS, Starting on Thu12/08/23 at 1600, Until Thu12/08/23 at 2043 Start Infusion 12/08/2023 3:03 PM EDT 500 mL 50 mL/hr documented in this encounter Care Teams Icing And Glaze Maker Relationship Specialty Start Date End Date Oliva Paredes MD [address] [place] [address] [place] Fer[place] [phone] PCP - General Family Medicine 09/21/23 documented as of this encounter
--- OUTSIDE RECORDS SUMMARY | 2024-01-11 04:47 | External Medical Summary | Summary of Care ---
Author Name Unknown Organization [facility] Address [address] [place] [address] Phone [phone] Care Team Providers Care Lifestyle Director Name Role Phone Oliva Paredes MD Primary Care Prov ider Encounter Details Date Type Department Care Team (Late Contact Info) Description 11/25/2023 Orders Only Pharmacy, [place] [address] [place] [address] Radames Perdomo, [facility] [address] [place] [address] Allergies No known active allergiesdocumented as of this encounter (statuses as of 11/25/2023) Medications Medication Sig Dispensed Refills Start Date [...] as of this encounter (statuses as of 11/25/2023) Active Problems Problem Noted Date Diagnosed Date [...] as of this encounter (statuses as of 11/25/2023) Immunizations Name Administration Dates Next Due COVID-19 [...] money to get more. Never true 10/08/2023 [place] Depression Scale Answer Date Recorded [place] Depression Scale Total 0 11/16/2023 The thought [...] Care Team (Late st Contact Info) Description 12/01/2023 9:00 AM EDT Office Visit Gynecology/Obstetrics [place] [address] [place] [address] Erin Hernandez CRNP [address] [place] [address] 12/02/2023 4:00 PM EDT Pharmacy Pharmacy, [place] [address] [place] [address] Clinic, [facility] [address] [place] [address] Health Maintenance Due Date Last Done Comments COVID-19 Vaccine (2 - 2023-24 season) 2023 03/16/2021 Yearly Wellness Visit 10/06/2023 [...] filedocumented as of this encounter Care Teams Lifestyle Director Relationship Specialty Start Date End Date Oliva Paredes MD [address] [place] [address] [place] [address] PCP - General Family Medicine 09/21/23 documented as of this encounter
--- OUTSIDE RECORDS SUMMARY | 2024-01-11 04:47 | External Medical Summary | Summary of Care ---
Author Name Unknown Organization [facility] Address [address] [place] [address] Phone [phone] Care Team Providers Care Enterprise Analyst Name Role Phone Oliva Paredes MD Primary Care Prov ider Reason for Visit * Reason Onset Date Comments Appointment 11/24/2023 Laci Encounter Details Date Type Department Care Team ([facility] Contact Info) Description 11/24/2023 Telephone Hematology/Oncology [facility] Rupinder [place] [address] [facility] [place] [address] Eryn Chaney, [facility] [address] [place] [address] Appointment (Laci) Allergies No known active allergiesdocumented as of this encounter (statuses as of 11/26/2023) Medications Medication Sig Dispensed Refills Start Date [...] as of this encounter (statuses as of 11/26/2023) Active Problems Problem Noted Date Diagnosed Date [...] as of this encounter (statuses as of 11/26/2023) Immunizations Name Administration Dates Next Due COVID-19 [...] money to get more. Never true 10/08/2023 [place] Depression Scale Answer Date Recorded [place] Depression Scale Total 0 11/16/2023 The thought [...] encounter Miscellaneous Notes * Telephone Encounter - Ailin Cano RN - 11/26/2023 7:42 AM EDT [place] is signed. Scheduling: please call patient to schedule 2 hour appt "venofer 08/26" (Eryn Chaney). Thanks! Patient will need venofer once a week x3 doses. * Telephone Encounter - Henry Nguyen RN - 11/24/2023 3:23 PM EDT Orders received, beacon plan built and routed for signature to pool [id number]. No auth required. Please route to scheduling once signed. documented in this encounter Plan of Treatment Upcoming Encounters Date Type Department Care Team (Late st Contact Info) Description 12/01/2023 9:00 AM EDT Office Visit Gynecology/Obstetrics [place] [address] [facility] [place] [address] Erin Hernandez CRNP [address] [place] [address] 12/02/2023 4:00 PM EDT Pharmacy Pharmacy, [id number] [address] Health Maintenance Due Date Last Done Comments [...] filedocumented as of this encounter Care Teams Enterprise Analyst Relationship Specialty Start Date End Date Oliva Paredes MD [address] [place] [address] [place] [address] PCP - General Family Medicine 09/21/23 documented as of this encounter
--- OUTSIDE RECORDS SUMMARY | 2024-01-11 04:47 | External Medical Summary | Summary of Care ---
Author Name Unknown Organization [facility] Address [address] [place] [address] Phone [phone] Care Team Providers Care Elementary Assistant Principal Name Role Phone Oliva Paredes MD Primary Care Prov ider Reason for Visit * Reason Onset Date Comments Anemia Follow-Up 12/02/2023 Encounter Details Date Type Department Care Team (Late st Contact Info) Description 12/02/2023 4:00 PM EDT Pharmacy Pharmacy, [place] [address] [place], [place] [phone] Clinic, [facility] [address] [place], [place] [phone] Iron deficiency anemia, unspecified iron deficiency anemia type* Allergies No known active allergiesdocumented as of this encounter (statuses as of 12/02/2023) Medications Medication Sig Dispensed Refills Start Date [...] as of this encounter (statuses as of 12/02/2023) Active Problems Problem Noted Date Diagnosed Date [...] as of this encounter (statuses as of 12/02/2023) Immunizations Name Administration Dates Next Due COVID-19 [...] money to get more. Never true 10/08/2023 [place] Depression Scale Answer Date Recorded [place] Depression Scale Total 0 11/16/2023 The thought [...] as of this encounter Progress Notes * Katharine Bardales [facility] - 12/02/2023 1:00 PM EDT Patient received first dose of Venofer 300 mg x 3 repletion series on 11/30 and appeared to have tolerated it without issue. Next scheduled: 12/07 Scheduled to be completed: 12/15 GA: 32w5d Estimated Date of Delivery: 01/22/24 Follow-up after completion of series to schedule repeat labs if appropriate prior to delivery. Anemia Clinic will continue to follow. Thank you for allowing us to participate in the care of thispatient. Thanks, Katharine Bardales [facility] Clinical Pharmacist [facility] [address] Anemia [facility] (P: [phone]) 12/02/2023 1:01 PM documented in this encounter Plan of Treatment Upcoming Encounters Date Type Department Care Team (Late st Contact Info) Description 12/08/2023 3:00 PM EDT Hem/Onc Treatment Hematology/Oncology Treatment, [address] [place] [address] Rupinder, Chair 6 Hem Onc [address] [place] [address] 12/16/2023 11:00 AM EDT Hem/Onc Treatment Hematology/Oncology Treatment, [address] [phone] Rupinder, Chair 6 Hem Onc [address] [address] 12/16/2023 1:45 PM EDT Office Visit Gynecology/Obstetrics [facility] [address] [facility] [place] [address] Shaista Munson CRNP [address] [facility] [address] 12/17/2023 2:30 PM EDT Pharmacy Pharmacy, [place] [address] [place] [address] Clinic, [facility] [address] [place] [address] Health Maintenance Due Date Last Done Comments [...] Primary documented in this encounter Care Teams Elementary Assistant Principal Relationship Specialty Start Date End Date Oliva Paredes MD [address] [place] [address] [place] [address] PCP - General Family Medicine 09/21/23 documented as of this encounter
--- OUTSIDE RECORDS SUMMARY | 2024-01-11 04:47 | External Medical Summary | Summary of Care ---
Author Name Unknown Organization [facility] Address [address] [place] [address] Phone [phone] Care Team Providers Care Progressive Care Manager Name Role Phone Oliva Paredes MD Primary Care Prov ider Reason for Referral * Evaluate & Treat - Unlimited Visits (Within 10 days (routine)) - Pending Review Specialty Diagnoses / Procedures Referred By Gretel lerma Referred To Contact Pharmacist / Pharmacy Diagnoses [place] (iron deficiency anemia) Eryn Chaney CNM [address] [place] [address] Referral ID Status Reason Start Date Expiration Date Visits Requested Visits Authorized [id number] Pending Review Specialty Services Required 11/19/2023 99 99 Question Answer Referral Priority Within 10 days (routine) Where should this appointment be scheduled? [facility] Referring Provider Role: Specialist Specialty: tinware lithograph press operator Reason for Referral: Anemia Comments Pharmacist Medication Therapy Management: Iron deficiency anemia Marshall Dolan RN Reason for Visit * Reason Onset Date Comments Blood Management Program 11/19/2023 Encounter Details Date Type Department Care Team (Late st Contact Info) Description 11/19/2023 Telephone Patient Blood Management, [place] [address] [place] [address] Eryn Chaney CNM [address] [place] [address] Blood Management Program Allergies No known active allergiesdocumented as of this encounter (statuses as of 12/01/2023) Medications Medication Sig Dispensed Refills Start Date [...] as of this encounter (statuses as of 12/01/2023) Active Problems Problem Noted Date Diagnosed Date [...] as of this encounter (statuses as of 12/01/2023) Immunizations Name Administration Dates Next Due COVID-19 [...] money to get more. Never true 10/08/2023 [place] Depression Scale Answer Date Recorded [place] Depression Scale Total 0 11/16/2023 The thought [...] encounter Miscellaneous Notes * Telephone Encounter - Marshall Dolan RN - 11/19/2023 10:21 AM EDT Recommend IV iron per OB MTM guidelines. Patient agreeable, prefers infusion at [facility]. documented in this encounter Plan of Treatment Upcoming Encounters Date Type Department Care Team (Latest Contact Info) Description 12/01/2023 9:00 AM EDT Office Visit Gynecology/Obstetri [facility] [address] [place] [address] Erin Hernandez CRNP [address] [place] [address] Antepartum anemia complicating *; Late care; Medication exposure during first trimester of ; Encounter for supervision of normal first in third trimester 12/01/2023 11:00 AM EDT Hem/Onc Treatment Hematology/Oncology Treatment, [address] [address] Rupinder, Chair 6 Hem Onc [address] [address] 12/02/2023 4:00 PM EDT Pharmacy Pharmacy, [place] [address] [place] [address] Clinic, Anemia [address] [place] [address] Scheduled Referrals Name Type Priority Associated Diagnoses Orde r Schedule PHARMACIST MEDS THERAPY MGMT REFERRAL OP Referral Within 10 days (routine) [place] (iron deficiency anemia) Ordered: 11/19/2023 Health Maintenance Due Date Last Done Comments [...] as of this encounter Visit Diagnoses Diagnosis [place] (iron deficiency anemia)- Primary Iron deficiency anemia, unspecified Antepartum anemia complicating - Primary Anemia, antepartum Late care Insufficient care Medication exposure during first trimester of Supervision of other high-risk Encounter for supervision of normal first in third trimester Supervision of normal first documented in this encounter Care Teams Progressive Care Manager Relationship Specialty Start Date End Date Oliva Paredes MD [address] [place] [address] [place] Ferreira [phone] PCP - General Family Medicine 09/21/23 documented as of this encounter
--- OUTSIDE RECORDS SUMMARY | 2024-01-11 04:47 | External Medical Summary | Summary of Care ---
Author Name Unknown Organization [facility] Address [address] [place] [address] Phone [phone] Care Team Providers Care District Plant Engineer Name Role Phone Oliva Paredes MD Primary Care Prov ider Reason for Visit * Reason Onset Date Comments Appointment 11/24/2023 Laci Encounter Details Date Type Department Care Team ([facility] Contact Info) Description 11/24/2023 Telephone Hematology/Oncology [facility] Rupinder [place] [address] [facility] [address] Eryn Chaney, [facility] [address] [place] [address] Appointment (Laci) Allergies No known [...] money to get more. Never true 10/08/2023 [place] Depression Scale Answer Date Recorded [place] Depression Scale Total 0 11/16/2023 The thought [...] encounter Miscellaneous Notes * Telephone Encounter - Ilene Dooley OSA - 11/26/2023 12:46 PM EDT Pt is scheduled and aware * Telephone Encounter - Ilene Dooley OSA - 11/26/2023 8:29 AM EDT Called Left message for pt to call in and schedule * Telephone Encounter - Ailin Cano RN - 11/26/2023 7:42 AM EDT [place] is signed. Scheduling: please call patient to schedule 2 hour appt "venofer 08/26" (Eryn Chaney). Thanks! Patient will need venofer once a week x3 doses. * Telephone Encounter - Henry Nguyen RN - 11/24/2023 3:23 PM EDT Orders received, beacon plan built and routed for signature to [id number]. No auth required. Please route to scheduling once signed. documented in this encounter Plan of Treatment Upcoming Encounters Date Type Department Care Team (Late st Contact Info) Description 12/01/2023 9:00 AM EDT Office Visit Gynecology/Obstetrics [facility] [address] [place] [address] Erin Hernandez CRNP [address] [place] [address] 12/01/2023 11:00 AM EDT Hem/Onc Treatment Hematology/Oncology Treatment, [address] [phone] Rupinder, Chair 5 Hem On[address] [address] 12/02/2023 4:00 PM EDT Pharmacy Pharmacy, [place] [address] [place] [address] Clinic, Anemia [address] [place], [place] [phone] Health Maintenance Due Date Last Done Comments [...] filedocumented as of this encounter Care Teams District Plant Engineer Relationship Specialty Start Date End Date Oliva Paredes MD [address] [place] [address] J[place] Ferreira [phone] PCP - General Family Medicine 09/21/23 documented as of this encounter
--- OUTSIDE RECORDS SUMMARY | 2024-01-11 04:47 | External Medical Summary | Summary of Care ---
Author Name Unknown Organization [facility] Address [address] [place] [address] Phone [phone] Care Team Providers Care Taxi Cab Driver Name Role Phone Oliva Paredes MD Primary Care Prov ider Reason for Visit * Reason Comments IV Therapy Venofer. Encounter Details Date Type Department Care Team (Latest Contact Info) Description 12/01/2023 11:00 AM EDT Hem/Onc Treatment Hematology/Oncology Treatment, [place] [address] [place] [address] Rupinder, Chair 6 Hem Onc Scene [address] [place] [address] Iron deficiency anemia, unspecified iron [...] money to get more. Never true 10/08/2023 [place] Depression Scale Answer Date Recorded [place] Depression Scale Total 0 11/16/2023 The thought [...] Description 12/02/2023 4:00 PM EDT Pharmacy Pharmacy, [address] [address] Clinic, [address] [address] 12/08/2023 3:00 PM EDT Hem/Onc Treatment Hematology/Oncology Treatment, [address] [place] [phone] Rupinder, Chair 6 Hem Onc [facility] [place] [address] [place] [address] [place] [address] 12/16/2023 11:00 AM EDT Hem/Onc Treatment Hematology/Oncology [address], [address] [phone] Rupinder, Chair 6 Hem Onc [place] 200 [facility] [place] [address] 12/16/2023 1:45 PM EDT Office Visit Gynecology/Obstetrics [address] [place] [address] Backer, Shaista SURYA Garsia [address] [place] [address] Health Maintenance Due Date Last Done Comments [...] ONCE PRN Other, Hypersensitivity Reaction, Starting on Thu12/01/23 at 1056, Until 12/02/23 at 1055, For 24 hours EPINEPHrine 1 MG/ML inj 0.3 mg 0.3 mg, Intramuscular, ONCE PRN Other, Hypersensitivity Reaction or Anaphylaxis, Starting on Thu12/01/23 at 1056, Until Thu12/02/23 at 1055, For 24 hours hEParin 100 UNIT/ML Lock Flush inj 500 Units 500 Units (5 mL), IV Lock, PRN Other, IV Flush, Starting on Thu12/01/23 at 1056, Until Thu12/02/23 at 1055, For 24 hours, Do not flush if lock, PICC, or central line not in place; IV infusing or unable to flush. Hydrocortisone Sod Suc (PF) (Solu-Cortef) inj 100 mg 100 mg, IV Push, ONCE PRN Other, Hypersensitivity Reaction, Starting on Thu12/01/23 at 1056, Until Thu12/02/23 at 1055, For 24 hours NSS infusion 500 mL, Intravenous, at 50 mL/hr, CONTINUOUS, Starting on Thu12/01/23 at 1200, Until Thu12/01/23 at 2159 Start Infusion 12/01/2023 11:10 AM EDT 500 mL 50 mL/hr oxygen GAS Inhalation, OXYGEN, First dose on Thu12/01/23 at 1130, Until Discontinued, Device/Managed by: Low Flow Device, [...] Push, PRN Other, IV Flush, Starting on Thu12/01/23 at 1056, Until Thu12/02/23 at 1055, For 24 hours, Do not flush if [...] 11:10 AM EDT 300 mg 166.67 mL/hr documented in this encounter Care Teams Taxi Cab Driver Relationship Specialty Start Date End Date Oliva Paredes MD [address] [place] [address] [place] [address] PCP - General Family Medicine 09/21/23 documented as of this encounter
--- OUTSIDE RECORDS SUMMARY | 2024-01-11 04:47 | External Medical Summary | Summary of Care ---
Author Name Unknown Organization [facility] Address [address] [place] [address] Phone [phone] Care Team Providers Care Plant And Maintenance Technician Name Role Phone Oliva Paredes MD Primary Care Prov ider Encounter Details Date Type Department Care Team (Late Contact Info) Description 11/19/2023 Telephone Gynecology/Obstetrics, [place] [address] [place] [address] Eryn Chaney [facility] [address] [place] [address] Allergies No known active allergiesdocumented [...] money to get more. Never true 10/08/2023 [place] Depression Scale Answer Date Recorded [place] Depression Scale Total 0 11/16/2023 The thought [...] encounter Miscellaneous Notes * Telephone Encounter - Eryn Chaney CNM - 11/19/2023 9:46 AM EDT Rx sent for vitamin B12 1000mcg PO daily. Eryn Chaney CNM documented in this encounter Plan of Treatment Upcoming Encounters Date Type Department Care Team (Late st Contact Info) Description 12/01/2023 9:00 AM EDT Office Visit Gynecology/Obstetrics [place] [address] [place] [address] Erin Hernandez CRNP [address] [place] [address] 12/02/2023 4:00 PM EDT Pharmacy Pharmacy, [place] [address] [place] [address] Clinic, [facility] [address] [place] [address] Health Maintenance Due Date Last Done Comments [...] as of this encounter Visit Diagnoses Diagnosis B12 deficiency- Primary Other B-complex deficiencies documented in this encounter Care Teams Plant And Maintenance Technician Relationship Specialty Start Date End Date Oliva Paredes MD [address] [place] [address] [place] [address] PCP - General Family Medicine 09/21/23 documented as of this encounter
--- OUTSIDE RECORDS SUMMARY | 2024-01-11 04:47 | External Medical Summary | Summary of Care ---
Author Name Unknown Organization [facility] Address [address] [place] [address] Phone [phone] Care Team Providers Care Court Clerk Name Role Phone Oliva Paredes MD Primary Care Prov ider Reason for Visit * Reason Onset Date Comments Appointment 11/24/2023 Johnathan Encounter Details Date Type Department Care Team ([facility] Contact Info) Description 11/24/2023 Telephone Hematology/Oncology [facility] Rupinder [place] 200 [facility] [place] [address] Eryn Chaney, [facility] [address] [place] [address] Appointment (Johnathan) Allergies No known active allergiesdocumented as of [...] money to get more. Never true 10/08/2023 [place] Depression Scale Answer Date Recorded [place] Depression Scale Total 0 11/16/2023 The thought [...] Cano RN - 11/26/2023 7:42 AM EDT [place] is signed. Scheduling: please call patient to schedule 2 hour appt "johnathan 08/26" (Eryn Chaney). Thanks! Patient will need venofer once a week x3 doses. * Telephone Encounter - Henry Nguyen RN - 11/24/2023 3:23 PM EDT Orders received, beacon plan built and routed for signature to [place] [id number]. No auth required. Please route to scheduling once signed. documented in this encounter Plan of Treatment Upcoming Encounters Date Type Department Care Team (Late st Contact Info) Description 12/01/2023 9:00 AM EDT [facility] [address] [facility] [place] [address] Erin Hernandez CRNP [address] [facility] [place] [address] 12/02/2023 4:00 PM EDT Pharmacy Pharmacy, [place] [address] [place], [place] [id number] Clinic, [facility] [address] [place] [address] Health Maintenance Due Date Last Done Comments [...] filedocumented as of this encounter Care Teams Court Clerk Relationship Specialty Start Date End Date Oliva Paredes MD [address] [place] [address] [place] [address] PCP - General Family Medicine 09/21/23 documented as of this encounter
--- OUTSIDE RECORDS SUMMARY | 2024-01-11 04:47 | External Medical Summary | Summary of Care ---
Author Name Unknown Organization [facility] Address [address] [facility] [place] [address] Phone [phone] Care Team Providers Care Sales Communications Manager Name Role Phone Oliva Paredes MD Primary Care Prov ider Reason for Visit * Reason Comments Return Visit Encounter Details Date Type Department Care Team ([facility] Contact Info) Description 12/01/2023 9:00 AM EDT Office Visit Gynecology/Obstetric s [place] [address] [place] [address] Erin Hernandez CRNP [address] [place] [address] Encounter for supervision of normal first in third trimester*; Antepartum anemia complicating ; Late care; Medication exposure during first trimester of Allergies No known active allergiesdocumented as of [...] mRNA, LNP-s, No Pre serve, 2-Dose Series ([employer]) 03/16/2021 DTaP Dipth/Tet/Acell Pertussis ([employer]an[employer]), Peds 12/04/2005,03/26/2005,01/24/2005,11/11 [...] to get more. Never true 10/08/2023 [place] Depression Scale Answer Date Recorded [place] Depression Scale Total 0 11/16/2023 The thought [...] Sign Reading Time Taken Comments Blood Pressure 108/66 12/01/2023 8:54 AM EDT Pulse - - Temperature - - Respiratory Rate - - Oxygen Saturation - - Inhaled Oxygen Concentration - - Weight 101.6 kg (224 lb) 12/01/2023 8:54 AM EDT Height 167.6 cm (5' 6") 12/01/2023 8:54 AM EDT Body Mass Index 36.15 12/01/2023 8:54 AM EDT documented in this encounter Progress Notes * Erin Hernandez CRNP - 12/01/2023 9:15 AM EDT 32w4d No concerns. Baby is active. No contractions, bleeding, LOF. Taking vitamins. First iron infusion today. SURYA Barreto documented in this encounter Nursing Notes * Chichi Mcmillan LPN - 12/01/2023 9:04 AM EDT 32w4d Denies concerns Undecided on tdap documented in this encounter Plan of Treatment Upcoming Encounters Date Type Department Care Team (Late st Contact Info) Description 12/01/2023 11:00 AM EDT Hem/Onc Treatment Hematology/Oncology Treatment, [address] [phone] Rupinder, Chair 6 Hem On[address] [address] 12/02/2023 4:00 PM EDT Pharmacy Pharmacy, [place] [address] [place] [address] Clinic, [place] [address] [place] [address] 12/16/2023 1:45 PM EDT Office Visit Gynecology/Obstetrics [facility] [address] [place] [address] Shaista Munson CRNP [address] [place] [address] Health Maintenance Due Date Last Done Comments [...] first trimester of Supervision of other high-risk documented in this encounter Care Teams Sales Communications Manager Relationship Specialty Start Date End Date Oliva Paredes MD [address] [place] [address] [place] [address] PCP - General Family Medicine 09/21/23 documented as of this encounter
--- OUTSIDE RECORDS SUMMARY | 2024-01-11 04:47 | External Medical Summary | Summary of Care ---
Author Name Unknown Organization [facility] Address [address] [place] [address] Phone [phone] Care Team Providers Care Materials Analyst Name Role Phone Oliva Paredes MD Primary Care Prov ider Reason for Visit * Reason Onset Date Comments Appointment 11/24/2023 Encounter Details Date Type Department Care Team (Late Contact Info) Description 11/24/2023 Telephone Pharmacy Call Center [phone] [place] [address] Clinic, [place] [address] [place], [place] [id number] Appointment Allergies No known active allergiesdocumented as of [...] money to get more. Never true 10/08/2023 [place] Depression Scale Answer Date Recorded [place] Depression Scale Total 0 11/16/2023 The thought [...] encounter Miscellaneous Notes * Telephone Encounter - Lynda Farnsworth PHARM Tech - 11/24/2023 2:50 PM EDT Caller's name: Tanya Preferred call back number(OFFICE NUMBER FOR ): [phone] Reason for call: Pt was calling in to jonathon an iron infusion. Thank you, Lynda Farnsworth Brain Wave Technician [facility] ([facility] (Formerly [facility]) 11/24/2023, 2:50 PM documented in this encounter Plan of Treatment Upcoming Encounters Date Type Department Care Team (Late st Contact Info) Description 12/08/2023 3:00 PM EDT Hem/Onc Treatment Hematology/Oncology Treatment, [address] [facility] [place] [phone] Rupinder, Chair 6 Hem On[address], [place] [address] 12/16/2023 11:00 AM EDT Hem/Onc Treatment Hematology/Oncology Treatment, [address] [facility], [place] [phone] Rupinder, Chair 6 Hem Onc [facility] [address] [address] 12/16/2023 1:45 PM EDT Office Visit Gynecology/Obstetrics [facility] [address] [place] [address] Backer, SURYA [place] [address] [place] [address] 12/17/2023 2:30 PM EDT Pharmacy Pharmacy, [place] [address] [place] [address] Clinic, [place] [address] [place] [address] Health Maintenance Due Date Last Done Comments [...] filedocumented as of this encounter Care Teams Materials Analyst Relationship Specialty Start Date End Date Oliva Paredes MD [address] [place] [address] [place] [address] PCP - General Family Medicine 09/21/23 documented as of this encounter
--- OUTSIDE RECORDS SUMMARY | 2024-01-11 04:48 | External Medical Summary | Summary of Care ---
Author Name Unknown Organization [facility] Address [address] [facility] [place] [address] Phone [phone] Care Team Providers Care Fur Dressing Supervisor Name Role Phone Oliva Paredes MD Primary Care Prov ider Encounter Details Date Type Department Care Team (Late Contact Info) Description 10/28/2023 Telephone Gynecology/Obstetrics [facility] [address] [place] [address] Rebekah Rios PA-C [address] [place] [phone] Allergies No known active allergiesdocumented as of this encounter (statuses as of 10/28/2023) Medications Medication Sig Dispensed Refills Start Date End Date Status Plus 27-1 MG Oral TabletIndications:Pre gnancy examination or test, positive result Take 1 Tablet by mouth in the morning. 100 Tablet 3 09/23/2023 Active Iron-Vitamin C 65-125 MG Oral Tablet (Vitron C) Take 1 Tablet by mouth in the morning and 1 Tablet before bedtime. 60 Tablet 3 10/09/2023 Active documented as of this encounter (statuses as of 10/28/2023) Active Problems Problem Noted Date Diagnosed Date Antepartum anemia complicating 024 Overview: Hgb at 25 weeks 11.0 Vitron C BID started, repeat CBC in 4 weeks Late care 10/09/2023 Overview: NOB at 24 weeks Medication exposure during first trimester of pr egnancy 10/09/2023 Overview: Had Nexplanon while , now removed. Estimated Date of Delivery Comme nts Yes 01/22/2024 Based on Ultraso und documented as of this encounter (statuses as of 10/28/2023) Immunizations Name Administration Dates Next Due COVID-19 [...] Date Recorded PHQ Adult Total Score 0 10/06/2022 Hunger Vital Sign Answer Date Recorded Within the past 12 months, y ou worried that your food would run out before you got the money to buy more. Never true 10/08/19 24 Within the past 12 months, t he food you bought just didn't last and you didn't have money to get more. Never true 10/08/2023 [place] Depression Scale Answer Date Recorded [place] Depression Scale Total 0 10/08/2023 The thought of harming myself has occurred to me . Never 10/08/2023 Estimated Date of Delivery Comme nts Yes [...] Telephone Encounter - Rachele Leonard LPN - 10/28/2023 12:04 PM EST FMLA forms received, completed and faxed as indicated. Originals in triage for pt bulk picker. Copy placed to scan documented in this encounter Plan of Treatment Upcoming Encounters Date Type Department Care Team (Late st Contact Info) Description 11/02/2023 3:20 PM EDT Laboratory Laboratory, Jose [place]se [place] [address] [place] [phone] Naima [place] [address] [place] [address] 11/02/2023 3:45 PM EDT Office Visit Gynecology/[place] [address] Eryn Chaney, [facility] [address] [place] [address] Health Maintenance Due Date Last Done Comments COVID-19 Vaccine ( season) 2023 03/16/2021 Influenza Vaccine (FLU shot) (#1) 2023 11/08/2015, 07/11/2014, 06/15/2012, Additional history exists Depression Screening 10/06/2023 10/06/2022 Yearly Wellness Visit 10/06/2023 10/06/2022, 019 Gonorrhea / Chlamydia Screen 10/08/2024 10/08/2023, 10/06/2022 DTaP,Tdap,and Td Vaccines (6 - Td or [...] filedocumented as of this encounter Care Teams Fur Dressing Supervisor Relationship Specialty Start Date End Date Oliva Paredes MD [address] [place] [address] [place] [address] PCP - General Family Medicine 09/21/23 documented as of this encounter
--- OUTSIDE RECORDS SUMMARY | 2024-01-11 04:48 | External Medical Summary | Summary of Care ---
Author Name Unknown Organization [facility] Address [address] [facility] [place] [address] Phone [phone] Care Team Providers Care Manager Transplant Name Role Phone Oliva Paredes MD Primary Care Prov ider Encounter Details Date Type Department Care Team (Late Contact Info) Description 10/09/2023 Telephone [facility] [address] [place] [address] Rebekah Rios PA-C [address] [place] [phone] Allergies No known active allergiesdocumented as of this encounter (statuses as of 10/09/2023) Medications Medication Sig Dispensed Refills Start Date [...] as of this encounter (statuses as of 10/09/2023) Active Problems Problem Noted Date Diagnosed Date [...] as of this encounter (statuses as of 10/09/2023) Immunizations Name Administration Dates Next Due COVID-19 [...] money to get more. Never true 10/08/2023 [place] Depression Scale Answer Date Recorded [place] Depression Scale Total 0 10/08/2023 The thought [...] Telephone Encounter - Rachele Leonard LPN - 10/09/2023 1:08 PM EST Patient notified. agreeable * Telephone Encounter - Rebekah Rios PA-C - 10/09/2023 1:04 PM EST Patient labs showed anemia. Hemoglobin 11.0. Would like her to start Vitron C BID. [facility]. Plan to repeat lab around 30 weeks. Remainder of labs normal. Her blood type is O positive. Please let her know. documented in this encounter Plan of Treatment Upcoming Encounters Date Type Department Care Team (Late st Contact Info) Description 11/02/2023 3:20 PM EDT Laboratory Laboratory, [facility] [address] [place] [phone] [facility] [address] [place] [address] 11/02/2023 3:45 PM EDT Office Visit Gynecology/Obstetrics [facility] 132 [facility] [place] [address] Eryn Chaney, [facility] [address] [facility] [place] [address] Scheduled Orders Name Type Priority Associated Diagnoses Orde r Schedule SYPHILIS ANTIBODY SCREEN WITH REFLEX TO RPR Lab Routine Encounter for supervision of normal first in third trimester Expected: 10/23/2023, Expires: 10/09/2024 Health Maintenance Due Date Last Done Comments [...] third trimester- Primary Supervision of normal first documented in this encounter Care Teams Manager Transplant Relationship Specialty Start Date End Date Oliva Paredes MD [address] [place] [address] [place] [address] PCP - General Family Medicine 09/21/23 documented as of this encounter
--- OUTSIDE RECORDS SUMMARY | 2024-01-11 04:48 | External Medical Summary | Summary of Care ---
Author Name Unknown Organization [facility] Address [address] [facility] [place] [address] Phone [phone] Care Team Providers Care Associate Software Development Engineer Name Role Phone Oliva Paredes MD Primary Care Prov ider Reason for Visit * Reason Comments Return Visit Encounter Details Date Type Department Care Team ([facility] Contact Info) Description 11/16/2023 10:15 AM EDT Office Visit Gynecology/Obstetric s [place] [address] [place] [address] Erin Hernandez CRNP [address] [place] [address] Encounter for supervision of normal first in third trimester*; Antepartum anemia complicating ; Late care; Medication exposure during first trimester of Allergies No known active allergiesdocumented as of this encounter (statuses as of 11/16/2023) Medications Medication Sig Dispensed Refills Start Date [...] as of this encounter (statuses as of 11/16/2023) Active Problems Problem Noted Date Diagnosed Date Encounter for supervision of normal first in [...] as of this encounter (statuses as of 11/16/2023) Immunizations Name Administration Dates Next Due COVID-19 [...] money to get more. Never true 10/08/2023 [place] Depression Scale Answer Date Recorded [place] Depression Scale Total 0 11/16/2023 The thought [...] Sign Reading Time Taken Comments Blood Pressure 124/60 11/16/2023 10:04 AM EDT Pulse - - Temperature - - Respiratory Rate - - Oxygen Saturation - - Inhaled Oxygen Concentration - - Weight 100.2 kg (221 lb) 11/16/2023 10:04 AM EDT Height 167.6 cm (5' 6") 11/16/2023 10:04 AM EDT Body Mass Index 35.67 11/16/2023 10:04 AM EDT documented in this encounter Progress Notes * Erin Hernandez CRNP - 11/16/2023 10:33 AM EDT 30w3d No concerns. Asking to do Qnatal today, states she checked insurance coverage. Will also recheck CBC today. Is taking iron BID. Baby is active. No contractions, bleeding, LOF. SURYA Barreto documented in this encounter Nursing Notes * Chichi Mcmillan LPN - 11/16/2023 10:20 AM EDT 30w3d Would like to do qnatal today with cbc Denies concerns documented in this encounter Plan of Treatment Upcoming Encounters Date Type Department Care Team (Late st Contact Info) Description 11/16/2023 11:40 AM EDT Laboratory Laboratory, [facility] [address] [place] [phone] [facility] [address] [place] [address] Antepartum anemia complicating ; Encounter for supervision of normal first in third trimester 12/01/2023 9:00 AM EDT Office Visit Gynecology/Obstetric s [facility] [address] [place] [address] Erin Hernandez CRNP 132 [facility] [place] [address] Pending Results Name Type Priority Associated Diagnoses Date /Time QNATAL ADVANCED (QUEST) Lab Routine Encounter for supervision of normal first in third trimester 11/16/2023 10:41 AM EDT Scheduled Orders Name Type Priority Associated Diagnoses Orde r Schedule QNATAL ADVANCED (QUEST) Lab Routine Encounter for supervision of normal first in third trimester Expected: 11/16/2023, Expires: 11/15/2024 Health Maintenance Due Date Last Done Comments COVID-19 Vaccine ( season) 2023 03/16/2021 Influenza Vaccine (FLU shot) (#1) 2023 11/08/2015, 07/11/2014, 06/15/2012, Additional history exists Yearly Wellness Visit 10/06/2023 10/06/2022, 019 Gonorrhea [...] first trimester of Supervision of other high-risk Antepartum anemia complicating Anemia, antepartum Encounter for supervision of normal first in third trimester Supervision of normal first documented in this encounter Care Teams Associate Software Development Engineer Relationship Specialty Start Date End Date Oliva Paredes MD [address] [place] [address] [place] [address] PCP - General Family Medicine 09/21/23 documented as of this encounter
--- OUTSIDE RECORDS SUMMARY | 2024-01-11 04:48 | External Medical Summary ---
Author Name Unknown Address Unknown Organization K01:[facility] [address] [facility] Report Ordering Provider Test Date Status EPI DIETRICH 11/16/2023 10:41:11 Final Observation Date Value Abnormality Reference (Units ) Status Iron 11/16/2023 10:41:11 69 33-151 (ug/dL) Final Iron-binding capacity 11/16/2023 10:41:11 469 Above high normal 250-425 (ug/dL) Final Transferrin Sat % 11/16/2023 10:41:11 15 15-55 (%) Final Performing Location [facility] [address] [facility] [address]
--- OUTSIDE RECORDS SUMMARY | 2024-01-11 04:48 | External Medical Summary | Summary of Care ---
Author Name Unknown Organization [facility] Address [address] [place] [facility] [place] [address] Phone [phone] Care Team Providers Care Swimming Pool Attendant Name Role Phone Oliva Paredes MD Primary Care Prov ider Reason for Visit * Reason Comments Outpatient Testing Encounter Details Date Type Department Care Team ([facility] Contact Info) Description 11/16/2023 11:40 AM EDT Laboratory Laboratory, [facility] [address] [facility] [phone] [facility] [address] [facility] [address] Antepartum anemia complicating ; Encounter for supervision of normal first in third trimester Allergies No known active allergiesdocumented as of [...] money to get more. Never true 10/08/2023 [place] Depression Scale Answer Date Recorded [place] Depression Scale Total 0 11/16/2023 The thought [...] Visit Gynecology/Obstetrics Jose Varghese [address] [place] [address] Erin Hernandez CRNP [address] [place] [address] Pending Results Name Type Priority Associated Diagnoses Date /Time CBC WITH WBC DIFFERENTIAL AND ANEMIA REFLEX WORKUP Lab Routine Antepartum anemia complicating 11/16/2023 10:41 AM EDT ANEMIA CBC Lab Routine Antepartum anemia complicating 11/16/2023 10:41 AM EDT DIFFERENTIAL, AUTOMATED Lab Routine Antepartum anemia complicating 11/16/2023 10:41 AM EDT ANEMIA REFLEX CHEMISTRY HOLD Lab Routine Antepartum anemia complicating 11/16/2023 10:41 AM EDT Health Maintenance Due Date Last [...] as of this encounter Visit Diagnoses Diagnosis Antepartum anemia complicating Anemia, antepartum Encounter for supervision of normal first in third trimester Supervision of normal first documented in this encounter Care Teams Swimming Pool Attendant Relationship Specialty Start Date End Date Oliva Paredes MD [address] [place] [address] [place] Fer[place] [phone] PCP - General Family Medicine 09/21/23 documented as of this encounter
--- OUTSIDE RECORDS SUMMARY | 2024-01-11 04:48 | External Medical Summary | Summary of Care ---
Author Name Unknown Organization [facility] Address [address] [place] [address] Phone [phone] Care Team Providers Care Travel Money Advisor Name Role Phone Oliva Paredes MD Primary Care Prov ider Reason for Referral * (Within 10 days (routine)) Specialty Diagnoses / Procedures Referred By Gretel lerma Referred To Contact Eryn Chaney CNM [address] [place] [address] Referral ID Status Reason Start Date Expiration Date Visits Re quested Visits Authorized Question Answer Referral Priority Within 10 days (routine) Where should this appointment be scheduled? [facility] Encounter Details Date Type Department Care Team (Late st Contact Info) Description 11/19/2023 Orders Only Gynecology/Obstetrics, [address] [address] Eryn Chaney CNM [address] [place] [address] Antepartum anemia* Allergies No known active allergiesdocumented as of this encounter (statuses as of 11/19/2023) Medications Medication Sig Dispensed Refills Start Date [...] as of this encounter (statuses as of 11/19/2023) Active Problems Problem Noted Date Diagnosed Date [...] as of this encounter (statuses as of 11/19/2023) Immunizations Name Administration Dates Next Due COVID-19 [...] money to get more. Never true 10/08/2023 [place] Depression Scale Answer Date Recorded [place] Depression Scale Total 0 11/16/2023 The thought [...] Jose Varghese [address] [place] [address] Erin Hernandez CRNP [address] [place] [address] Scheduled Referrals Name Type Priority Associated Diagnoses Orde r Schedule BLOOD MANAGEMENT REFERRAL Referral Within 10 days (routine) Antepartum anemia Ordered: 11/19/2023 Health Maintenance Due Date Last [...] of this encounter Visit Diagnoses Diagnosis Antepartum anemia- Primary Anemia, antepartum documented in this encounter Care Teams Travel Money Advisor Relationship Specialty Start Date End Date Oliva Paredes MD [address] [place] [address] [place] [address] PCP - General Family Medicine 09/21/23 documented as of this encounter
--- OUTSIDE RECORDS SUMMARY | 2024-01-11 04:48 | External Medical Summary | Summary of Care ---
Author Name Unknown Organization [facility] Address [address] [facility] [place] [address] Phone [phone] Care Team Providers Care Exerciser Horse Name Role Phone Oliva Paredes MD Primary Care Prov ider Encounter Details Date Type Department Care Team (Late Contact Info) Description 11/16/2023 Telephone [facility] [address] [place] [address] Erin Hernandez CRNP [address] [place] [address] Allergies No known active allergiesdocumented as of [...] money to get more. Never true 10/08/2023 [place] Depression Scale Answer Date Recorded [place] Depression Scale Total 0 11/16/2023 The thought [...] encounter Miscellaneous Notes * Telephone Encounter - Sara Bucio RN - 11/16/2023 1:41 PM EDT Spoke with the lab and sample canceled. Pt aware the sample has been canceled. * Telephone Encounter - Sara Bucio RN - 11/16/2023 12:19 PM EDT Pt called the office stating that she checked with her insurance and was told the qnatal is covered, went and had it drawn but then got a call again from her insurance that it was not covered. She now wants to cancel it. Will talk with Lab and call pt back. Pt can be reached at [phone] documented in this encounter Plan of Treatment Upcoming Encounters Date Type Department Care Team (Late st Contact Info) Description 12/01/2023 9:00 AM EDT Office Visit Gynecology/Obstetrics Jose Varghese [address] [place] [address] Erin Hernandez CRNP [address] [place] [address] Health Maintenance Due Date Last Done Comments [...] filedocumented as of this encounter Care Teams Exerciser Horse Relationship Specialty Start Date End Date Oliva Paredes MD [address] [place] [address] [place] [address] PCP - General Family Medicine 09/21/23 documented as of this encounter
--- OUTSIDE RECORDS SUMMARY | 2024-01-11 04:48 | External Medical Summary | Summary of Care ---
Author Name Unknown Organization [facility] Address [address] [place] [address] Phone [phone] Care Team Providers Care Cosmetology Instructor Name Role Phone Oliva Paredes MD Primary Care Prov ider Reason for Visit * Reason Onset Date Comments Appointment 11/24/2023 Laci Encounter Details Date Type Department Care Team ([facility] Contact Info) Description 11/24/2023 Telephone Hematology/Oncology [facility] Rupinder Cisne [address] [facility] [place] [address] Eryn Chaney, [facility] [address] [place] [address] Appointment (Laci) Allergies No known [...] money to get more. Never true 10/08/2023 Saline Depression Scale Answer Date Recorded Saline Depression Scale Total 0 11/16/2023 The thought [...] encounter Miscellaneous Notes * Telephone Encounter - Henry Nguyen RN - 11/24/2023 3:23 PM EDT Orders received, beacon plan built and routed for signature to warren [id number]. No auth required. Please route to scheduling once signed. documented in this encounter Plan of Treatment Upcoming Encounters Date Type Department Care Team (Late st Contact Info) Description 12/01/2023 9:00 AM EDT Office Visit Gynecology/Obstetrics [address] [place] [address] Erin Hernandez CRNP [address] [place] [address] 12/02/2023 4:00 PM EDT Pharmacy Pharmacy, [place] [address] [place] [address] Clinic, [place] [address] [place] [address] Health Maintenance Due Date Last Done Comments [...] filedocumented as of this encounter Care Teams Cosmetology Instructor Relationship Specialty Start Date End Date Oliva Paredes MD [address] [place] [address] [place] [address] PCP - General Family Medicine 09/21/23 documented as of this encounter
--- OUTSIDE RECORDS SUMMARY | 2024-01-11 04:48 | External Medical Summary | Summary of Care ---
Author Name Unknown Organization [facility] Address [address] [place] [address] Phone [phone] Care Team Providers Care Air Conditioning Mechanic Industrial Name Role Phone Oliva Paredes MD Primary Care Prov ider Reason for Visit * Reason Onset Date Comments Appointment 11/24/2023 Laci Encounter Details Date Type Department Care Team ([facility] Contact Info) Description 11/24/2023 Telephone Hematology/Oncology [facility] Rupinder Mohawk [address] [facility] [place] [address] Eryn Chaney, [facility] [address] [place] [address] Appointment (Laci) Allergies No known active allergiesdocumented as of this encounter (statuses as of 11/24/2023) Medications Medication Sig Dispensed Refills Start Date [...] as of this encounter (statuses as of 11/24/2023) Active Problems Problem Noted Date Diagnosed Date [...] as of this encounter (statuses as of 11/24/2023) Immunizations Name Administration Dates Next Due COVID-19 [...] money to get more. Never true 10/08/2023 [place] Depression Scale Answer Date Recorded [place] Depression Scale Total 0 11/16/2023 The thought [...] plan built and routed for signature to [place] [id number]. No auth required. Please route to scheduling once signed. documented in this encounter Plan of Treatment Upcoming Encounters Date Type Department Care Team (Late st Contact Info) Description 12/01/2023 9:00 AM EDT Office Visit Gynecology/Obstetrics [address] [place] [address] Erin Hernandez CRNP [address] [place] [address] 12/02/2023 4:00 PM EDT Pharmacy Pharmacy, [place] [address] [place] [address] Clinic, [place] [address] [place] [address] Health Maintenance Due Date Last Done Comments [...] filedocumented as of this encounter Care Teams Air Conditioning Mechanic Industrial Relationship Specialty Start Date End Date Oliva Paredes MD [address] [place] [address] [place] [address] PCP - General Family Medicine 09/21/23 documented as of this encounter
--- OUTSIDE RECORDS SUMMARY | 2024-01-11 04:48 | External Medical Summary ---
Author Name Unknown Address Unknown Organization [id number]:LABORATORY [facility] - [address] [place] [address] Laboratory Report Ordering Provider Test Date Status LEE JAMES 11/02/2023 16:11:53 Final Observation Date Value Abnormality Reference (Units ) Status Treponema pallidum Ab [Presence] in Serum by Immunoassay 11/02/2023 16:11:53 Nonreactive Nonreactive Final No serologic evidence of syp hilis. No additional testing clinicially indicated at this time. Consider repeat testing in 2-4 weeks if acute or primary syphilis is suspected. Performing Location LABORATORY [facility] - [address] [place] [address]
--- OUTSIDE RECORDS SUMMARY | 2024-01-11 04:48 | External Medical Summary | Summary of Care ---
Author Name Unknown Organization [facility] Address [address] [place] [address] Phone [phone] Care Team Providers Care Solar Sales Consultant Name Role Phone Oliva Paredes MD Primary Care Prov ider Reason for Visit * Reason Comments Blood Management Program Encounter Details Date Type Department Care Team ([facility] Contact Info) Description 11/19/2023 Documentation Patient Blood Management, [place] [address] [place] [address] Marshall Dolan RN Allergies No known active allergiesdocumented as of [...] money to get more. Never true 10/08/2023 [place] Depression Scale Answer Date Recorded [place] Depression Scale Total 0 11/16/2023 The thought [...] as of this encounter Progress Notes * Marshall Dolan RN - 11/19/2023 9:24 AM EDT REFERRAL - Patient Blood Management Name: Tanya Neal REQUESTING SERVICE: Vladimir Varghese OB REASON FOR REFERRAL: new evaluation outpatient, anemia in [place]: 01/22/24 Anemia Evaluation: Latest Reference Range & Units 11/16/23 10:41 HGB 12.0 - 15.3 g/dL 10.9 (L) HCT 36.0 - 45.2 % 34.4 (L) Iron 33 - 151 ug/dL 69 Iron Binding Capacity 250 - 425 ug/dL 469 (H) Transferrin Saturation Percent 15 - 55 % 15 Ferritin 13 - 150 ng/mL 32 Vitamin B12 232 - 1,245 pg/mL 290 Folic Acid >4.5 ng/mL >20.0 Immature Reticuloctye Fraction 2.5 - 20.6 % 31.3 (H) Reticulocyte Hemoglobin 29.7 - 37.4 pg 29.8 Current Patient Medications: Medications that may impair hemostasis: none Medications that may impair iron absorption: none Patient Refused Blood Transfusion? (e.g. Taoist): no Possible Contributing Factors: iron deficiency and vitamin B12 deficiency Treatment Recommendations: B12 1000mcg PO daily IV iron per OB MTM guidelines. 11/18 - myG sent 11/18 - patient returned Myg, agreeable to IV iron. MTM sent. Thank you for allowing Blood Management to participate in the care of this patient. documented in this encounter Plan of Treatment Upcoming Encounters Date Type Department Care Team (Late st Contact Info) Description 12/01/2023 9:00 AM EDT [facility] [address] [place] [address] Erin Hernandez CRNP [address] [place] [address] Health Maintenance Due Date Last Done Comments COVID-19 Vaccine (2022- season) 2023 03/16/2021 Influenza Vaccine (FLU shot) [...] filedocumented as of this encounter Care Teams Solar Sales Consultant Relationship Specialty Start Date End Date Oliva Paredes MD [address] [place] [address] [place] Ferreira [phone] PCP - General Family Medicine 09/21/23 documented as of this encounter
--- OUTSIDE RECORDS SUMMARY | 2024-01-11 04:48 | External Medical Summary ---
Author Name Unknown Address Unknown Organization K01:[facility] - [facility][note 2] [address] [facility] [address] Laboratory Report Ordering Provider Test Date Status EPI DIETRICH 11/16/2023 10:41:11 Final Observation Date Value Abnormality Reference (Units ) Status WBC, Total 11/16/2023 10:41:11 10.25 4.00-10.8 0 (K/uL) Final RBC 11/16/2023 10:41:11 3.76 3.85-5.15 (M/uL) Final Hemoglobin 11/16/2023 10:41:11 10.9 Below low normal 12 .0-15.3 (g/dL) Final Anemia reflex testing trigge rs on a HGB < 12.0 for Females and HGB < 13.0 for Males in accordance with the WHO Anemia Guidelines
Anemia reflex testing triggers on a HGB < 12.0 for Females and HGB < 13.0 for Males in accordance with the WHO Anemia Guidelines HCT 11/16/2023 10:41:11 34.4 Below low normal 36. 0-45.2 (%) Final MCV 11/16/2023 10:41:11 91.5 81.5-97.5 (fL) Final MCH 11/16/2023 10:41:11 29.0 27.0-34.0 (pg) Final MCHC 11/16/2023 10:41:11 31.7 32.0-36.0 (g/dL) Final RDW 11/16/2023 10:41:11 13.5 11.5-15.5 (%) Final Platelets 11/16/2023 10:41:11 236 140-400 (K /uL) Final MPV 11/16/2023 10:41:11 9.9 6.6-11.1 ( fL) Final Nucleated erythrocytes/100 leukocytes [Ratio] in Blood by Automated count 11/16/2023 10:41:11 0 <=0 (/100 WBCs) Final Performing Location [facility]ORY [facility] - [address] [facility] [address]
--- OUTSIDE RECORDS SUMMARY | 2024-01-11 04:48 | External Medical Summary ---
Author Name Unknown Address Unknown Organization K01:LABORATORY [place] [address] [place] [address] Laboratory Report Ordering Provider Test Date Status KAURCHOWDARY 11/16/2023 10:41:11 Final Observation Date Value Abnormality Reference (Units ) Status Retic, % (auto) 11/16/2023 10:41:11 2.51 Above high normal 0.80-1.90 (%) Final Reticulocytes, Absolute 11/16/2023 10:41:11 93.6 31.3-100.1 (K/uL) Final Reticulocyte fraction, immature 11/16/2023 10:41:11 31.3 Above high normal 2.5-20.6 (%) Final Reticulocyte HGB 11/16/2023 10:41:11 29.8 29.7-37.4 (pg) Final Performing Location [facility] [place] [address]
--- OUTSIDE RECORDS SUMMARY | 2024-01-11 04:48 | External Medical Summary | Summary of Care ---
Author Name Unknown Organization [facility] Address [address] [place] [address] Phone [phone] Care Team Providers Care Tabulating Machine Mechanic Name Role Phone Oliva Paredes MD Primary Care Prov ider Reason for Visit * Reason Onset Date Comments Anemia Follow-Up 11/24/2023 * Evaluate & Treat - Unlimited Visits (Within 10 days (routine)) - Pending Review Specialty Diagnoses / Procedures Referred By Gretel t Referred To Contact Pharmacist / Pharmacy Diagnoses [place] (iron deficiency anemia) Eryn Chaney, [facility] [address] [place] [address] Referral ID Status Reason Start Date Expiration Date Visits Requested Visits Authorized [id number] Pending Review Specialty Services Required 11/19/2023 99 99 Encounter Details Date Type Department Care Team (Late Contact Info) Description 11/24/2023 10:00 AM EDT Pharmacy Pharmacy, [place] [address] [place], [place] [phone] Clinic, [facility] [address] [place], [place] [id number] Iron deficiency anemia, unspecified iron deficiency anemia [...] money to get more. Never true 10/08/2023 [place] Depression Scale Answer Date Recorded [place] Depression Scale Total 0 11/16/2023 The thought [...] of this encounter Progress Notes * Katharine Bardales, [facility] - 11/24/2023 2:44 PM EDT Patient Phone Numbers Patient referred by Eryn Chaney CNM for evaluation of anemia by the Anemia Clinic. Called patient to introduce role/clinic and to review labs from 11/15. Hgb: 10.9 g/dL TSAT: 15 % Ferritin: 32 ng/mL B12: 290 pg/mL FA: >20.0 ng/mL GA: 31w4d Estimated Date of Delivery: 01/22/24 Hgb is below target range for the third trimester. Iron studies within target range. B12 level below target range. FA level within target range. Per chart review, patient is taking B12 1000mcg daily and appears to be tolerating it well. Patient reports feeling ok. Patient qualifies for IV iron repletion. Plan: Venofer 300 mg IV weekly x 3 doses at SP. Orders placed and routed to appropriate parties. Patient agreeable to intervention. Follow-up labs to be scheduled ~4-6 weeks after iron repletion completed if appropriate prior to delivery. Anemia Clinic will continue to follow. Thank you for allowing us to participate in the care of thispatient. Thanks, Katharine Bardales [facility] Clinical Pharmacist [facility] Anemia Clinic (P: [phone]) 11/24/2023 2:44 PM Electronically signed by Katharine Bardales [facility] at 11/24/2023 3:13 PM EDT documented in this encounter Plan of Treatment Upcoming Encounters Date Type Department Care Team (Late st Contact Info) Description 12/01/2023 9:00 AM EDT Office Visit [facility] [place] [address] Erin Hernandez CRNP [address] [place] [address] 12/02/2023 4:00 PM EDT Pharmacy Pharmacy, [place] [address] [place], [place] [phone] Clinic, Anemia [address] [place] [address] Scheduled Referrals Name Type Priority Associated Diagnoses [...] Primary documented in this encounter Care Teams Tabulating Machine Mechanic Relationship Specialty Start Date End Date Oliva Paredes MD [address] [place] [address] [place] [address] PCP - General Family Medicine 09/21/23 documented as of this encounter
--- OUTSIDE RECORDS SUMMARY | 2024-01-11 04:48 | External Medical Summary | Summary of Care ---
Author Name Unknown Organization [facility] Address [address] [facility] [place] [address] Phone [phone] Care Team Providers Care Garnett Fixer Name Role Phone Oliva Paredes MD Primary Care Prov ider Reason for Visit * Reason Comments Outpatient Testing Encounter Details Date Type Department Care Team ([facility] Contact Info) Description 11/16/2023 11:40 AM EDT Laboratory Laboratory, [facility] [phone] [facility] [address] [facility] [address] Antepartum anemia complicating ; Encounter [...] money to get more. Never true 10/08/2023 [place] Depression Scale Answer Date Recorded [place] Depression Scale Total 0 11/16/2023 The thought [...] Jose Varghese [address] [place] [address] Erin Hernandez CRNP [address] [place] [address] Pending Results Name Type Priority Associated Diagnoses Date /Time CBC WITH WBC DIFFERENTIAL AND ANEMIA REFLEX WORKUP Lab Routine Antepartum anemia complicating 11/16/2023 10:41 AM EDT QNATAL ADVANCED ([facility]) Lab Routine Encounter for supervision of normal first in third trimester 11/16/2023 10:41 AM EDT ANEMIA CBC Lab [...] first documented in this encounter Care Teams Garnett Fixer Relationship Specialty Start Date End Date Oliva Paredes MD [address] [place] [address] [place] [address] PCP - General Family Medicine 09/21/23 documented as of this encounter
--- OUTSIDE RECORDS SUMMARY | 2024-01-11 04:48 | External Medical Summary ---
Author Name Unknown Address Unknown Organization K01:[facility] [address] [place] [address] Laboratory Report Ordering Provider Test Date Status EPI DIETRICH 11/16/2023 10:41:11 Final Observation Date Value Abnormality Reference (Units ) Status Creatinine 11/16/2023 10:41:11 0.6 0.5-1.0 (mg/dL) Final Glomerular filtration rate/1.73 sq M.predicted [Volume Rate/Area] in Serum, Plasma or Blood by Creatinine-based formula (CKD-EPI) 11/16/2023 10:41:11 >90 >=60 (mL/min) Final eGFR is calculated based on the CKD-EPI 2020 equation Performing Location [facility] [place] [facility] [address] [place] [address]
--- OUTSIDE RECORDS SUMMARY | 2024-01-11 04:48 | External Medical Summary | Summary of Care ---
Author Name Unknown Organization [facility] Address [address] [facility] [place] [address] Phone [phone] Care Team Providers Care Screwhead Stoner And Polisher Name Role Phone Oliva Paredes MD Primary Care Prov ider Reason for Visit * Reason Comments Return Visit Encounter Details Date Type Department Care Team ([facility] Contact Info) Description 11/02/2023 3:45 PM EDT Office Visit Gynecology/Obstetric s [facility] [address] [facility] [place] [address] Eryn Chaney, GIUSEPPE [address] [facility] [place] [address] Antepartum anemia complicating *; Encounter for supervision of normal first in third trimester Allergies No known active allergiesdocumented as of this encounter (statuses as of 11/05/2023) Medications Medication Sig Dispensed Refills Start Date [...] as of this encounter (statuses as of 11/05/2023) Active Problems Problem Noted Date Diagnosed Date [...] as of this encounter (statuses as of 11/05/2023) Immunizations Name Administration Dates Next Due COVID-19 [...] to get more. Never true 10/08/2023 [place] Depression Scale Answer Date Recorded [place] Depression Scale Total 0 10/08/2023 The thought [...] Sign Reading Time Taken Comments Blood Pressure 120/70 11/02/2023 3:50 PM EDT Pulse - - Temperature - - Respiratory Rate - - Oxygen Saturation - - Inhaled Oxygen Concentration - - Weight - - Height 167.6 cm (5' 6") 11/02/2023 3:50 PM EDT Body Mass Index - - documented in this encounter Progress Notes * Gretchen Bansal LPN - 11/02/2023 4:29 PM EDT 28w3d Done with glucola today Declines tdap * Eryn Chaney CNM - 11/02/2023 4:12 PM EDT Tanya Neal is a 18 year old female here for her routine OB appointment at 28w3d Her Estimated Date of Delivery: 01/22/24 REVIEW OF SYSTEMS: She affirms movement. Denies vaginal bleeding, LOF, contractions, N/V, headaches, vision changes, and RUQ pain. PHYSICAL EXAM: Filed Vitals: 11/02/23 1550 BP: 120/70 Height: 1.676 m (5' 6") +FHT 150-160bpm Fundal height: 29cm ASSESSMENT/PLAN: (O99.019) Antepartum anemia complicating (primary encounter diagnosis) Plan: CBC WITH WBC DIFFERENTIAL AND ANEMIA REFLEX WORKUP -Repeat CBC in 2 weeks -Taking PO iron twice daily (Z34.03) Encounter for supervision of normal first in third trimester Plan: - planning to complete GTT and syphilis screen today - she already has a breast pump - is considering Nexplanon for contraception - rhogam not needed d/t O+ blood type - labor precautions and kick counts reviewed -declines TDAP - RTO in 2 weeks Eryn Chaney CNM documented in this encounter Plan of Treatment Scheduled Orders Name Type Priority Associated Diagnoses Orde r Schedule CBC WITH WBC DIFFERENTIAL AND ANEMIA REFLEX WORKUP Lab Routine Antepartum anemia complicating Expected: 11/02/2023 (Approximate), Expires: 11/01/2024 Health Maintenance Due Date Last Done Comments [...] Antepartum anemia complicating - Primary Anemia, antepartum Encounter for supervision of normal first in third trimester Supervision of normal first documented in this encounter Care Teams Screwhead Stoner And Polisher Relationship Specialty Start Date End Date Oliva Paredes MD [address] [place] [address] [place] [address] PCP - General Family Medicine 09/21/23 documented as of this encounter
--- OUTSIDE RECORDS SUMMARY | 2024-01-11 04:48 | External Medical Summary ---
Author Name Unknown Address Unknown Organization K01:[facility] [place] [address] [place] [address] Laboratory Report Ordering Provider Test Date Status EPI DIETRICH 11/16/2023 10:41:11 Final Observation Date Value Abnormality Reference (Units ) Status TSH 11/16/2023 10:41:11 1.57 0.27-4.20 (uIU/mL) Final Performing Location [facility] [place] [address] [place] [address]
--- OUTSIDE RECORDS SUMMARY | 2024-01-11 04:48 | External Medical Summary | Summary of Care ---
Author Name Unknown Organization [facility] Address [address] [place] [address] Phone [phone] Care Team Providers Care Cable Braider Name Role Phone Oliva Paredes MD Primary Care Prov ider Reason for Visit * Reason Comments Outpatient Testing Encounter Details Date Type Department Care Team ([facility] Contact Info) Description 11/02/2023 3:20 PM EDT Laboratory Laboratory, [facility] [address] [facility] [phone] [facility] [address] [facility] [place] [address] Encounter for supervision of normal first in second trimester; Obesity in , antepartum; Encounter for supervision of normal first in third trimester Allergies No known active allergiesdocumented as of this encounter (statuses as of 11/02/2023) Medications Medication Sig Dispensed Refills Start Date [...] as of this encounter (statuses as of 11/02/2023) Active Problems Problem Noted Date Diagnosed Date [...] as of this encounter (statuses as of 11/02/2023) Immunizations Name Administration Dates Next Due COVID-19 [...] money to get more. Never true 10/08/2023 [place] Depression Scale Answer Date Recorded [place] Depression Scale Total 0 10/08/2023 The thought [...] as of this encounter Plan of Treatment Pending Results Name Type Priority Associated Diagnoses Date /Time 50-G GESTATIONAL GLUCOSE, 1 HOUR Lab Routine Encounter for supervision of normal first in second trimester Obesity in , antepartum 11/02/2023 4:11 PM EDT SYPHILIS ANTIBODY SCREEN WITH REFLEX TO RPR Lab Routine Encounter for supervision of normal first in third trimester 11/02/2023 4:11 PM EDT SYPHILIS ANTIBODY SCREEN Lab Routine Encounter for supervision of normal first in third trimester 11/02/2023 4:11 PM EDT Health Maintenance Due Date Last Done [...] Encounter for supervision of normal first in second trimester Supervision of normal first Obesity in , antepartum Obesity complicating , childbirth, or the puerperium, antepartum condition or complication Encounter for supervision of normal first in third trimester Supervision of normal first documented in this encounter Care Teams Cable Braider Relationship Specialty Start Date End Date Oliva Paredes MD [address] [place] [address] [place] [address] PCP - General Family Medicine 09/21/23 documented as of this encounter
--- OUTSIDE RECORDS SUMMARY | 2024-01-11 04:48 | External Medical Summary | Summary of Care ---
Author Name Unknown Organization [facility] Address [address] [facility] [place] [address] Phone [phone] Care Team Providers Care Framing Machine Tender Name Role Phone Oliva Paredes MD Primary Care Prov ider Reason for Visit * Reason Comments Outpatient Testing Encounter Details Date Type Department Care Team ([facility] Contact Info) Description 11/16/2023 11:40 AM EDT Laboratory Laboratory, [facility] [phone] [facility] [address] Antepartum anemia complicating ; [...] money to get more. Never true 10/08/2023 [place] Depression Scale Answer Date Recorded [place] Depression Scale Total 0 11/16/2023 The thought [...] Jose Varghese [address] [place] [address] Erin Hernandez CRNP [address] [place] [address] Pending Results Name Type Priority Associated Diagnoses [...] first documented in this encounter Care Teams Framing Machine Tender Relationship Specialty Start Date End Date Oliva Paredes MD [address] [place] [address] [place] [phone] PCP - General Family Medicine 09/21/23 documented as of this encounter
--- OUTSIDE RECORDS SUMMARY | 2024-01-11 04:48 | External Medical Summary ---
Author Name Unknown Address Unknown Organization K01:[facility] [place] [address] [facility] [address] [facility] [address] Laboratory Report Ordering Provider Test Date Status EPI DIETRICH 11/16/2023 10:41:11 Final Observation Date Value Abnormality Reference (Units ) Status SYNC LEUKOCYTES IN BLOOD BY AUTOMATED COUNT 11/16/2023 10:41:11 10.25 4.00-10.80 (K/uL) Final Segs 11/16/2023 10:41:11 76.6 Above high normal 35.0-65.0 (%) Final Lymphs % 11/16/2023 10:41:11 16.3 Below low normal 23.0-53.0 (%) Final Monos 11/16/2023 10:41:11 5.4 1.0-11.0 (%) Final Eosinophils 11/16/2023 10:41:11 0.9 0.0-6.0 (%) Final Basos 11/16/2023 10:41:11 0.2 0.0-2.0 (%) Final Immature Granulocyte, Percent 11/16/2023 10:41:11 0.6 0.0-2.0 (%) Final Absolute Segs 11/16/2023 10:41:11 7.86 1.80-8.00 (K/uL) Final Lymphs, absolute 11/16/2023 10:41:11 1.67 1.20-5.40 (K/ul) Final Monos, Abs 11/16/2023 10:41:11 0.55 0.00-1.10 (K/uL) Final Eos, Abs 11/16/2023 10:41:11 0.09 0.00-0.70 (K/uL) Final Basos, Abs 11/16/2023 10:41:11 0.02 0.00-0.20 (K/uL) Final Immature Granulocytes, Number 11/16/2023 10:41:11 0.06 0.00-0.20 (K/uL) Final Performing Location [facility] [place] [address] [facility] [address]
--- OUTSIDE RECORDS SUMMARY | 2024-01-11 04:48 | External Medical Summary ---
Author Name Unknown Address Unknown Organization K01:[facility] [place] [address] [facility] [place] [address] Laboratory Report Ordering Provider Test Date Status EPI DIETRICH 11/16/2023 10:41:11 Final Observation Date Value Abnormality Reference (Units ) Status Ferritin 11/16/2023 10:41:11 32 13-150 (ng /mL) Final Performing Location [facility] [place] [address] [place] [address]
--- OUTSIDE RECORDS SUMMARY | 2024-01-11 04:48 | External Medical Summary ---
Author Name Unknown Address Unknown Organization K01:[facility] [place] [address] [place] [address] Laboratory Report Ordering Provider Test Date Status EPI DIETRICH 11/16/2023 10:41:11 Final Observation Date Value Abnormality Reference (Units ) Status Folic Acid 11/16/2023 10:41:11 >20.0 >4.5 (ng/ mL) Final Performing Location [facility] [place] [address] [place] [address]
--- OUTSIDE RECORDS SUMMARY | 2024-01-11 04:48 | External Medical Summary | Summary of Care ---
Author Name Unknown Organization [facility] Address [address] [facility] [place] [address] Phone [phone] Care Team Providers Care Electrical Laboratory Technician Name Role Phone Oliva Paredes MD Primary Care Prov ider Encounter Details Date Type Department Care Team (Late st Contact Info) Description 11/24/2023 Orders Only Gynecology/Obstetrics [facility] [address] [facility] [place] [address] Eryn Chaney, [facility] 400 [facility] [place] [address] Iron deficiency anemia, unspecified iron deficiency anemia [...] money to get more. Never true 10/08/2023 [place] Depression Scale Answer Date Recorded [place] Depression Scale Total 0 11/16/2023 The thought [...] 12/01/2023 9:00 AM EDT Office Visit Gynecology/Obstetrics [facility] [address] [address] Erin Hernandez CRNP [address] [place] [address] 12/02/2023 4:00 PM EDT Pharmacy Pharmacy, [place] [address] [place] [address] Clinic, [place] [address] [place] [address] Health Maintenance Due Date Last Done Comments [...] Primary documented in this encounter Care Teams Electrical Laboratory Technician Relationship Specialty Start Date End Date Oliva Paredes MD [address] [place] [address] [place] [address] PCP - General Family Medicine 09/21/23 documented as of this encounter
--- OUTSIDE RECORDS SUMMARY | 2024-01-11 04:48 | External Medical Summary | Summary of Care ---
Author Name Unknown Organization [facility] Address [address] [place] [address] Phone [phone] Care Team Providers Care Filler Picker Name Role Phone Oliva Paredes MD Primary Care Prov ider Encounter Details Date Type Department Care Team (Late st Contact Info) Description 11/24/2023 Orders Only Hematology/Oncology [facility] [place] [address] [facility] [place] [address] Eryn Chaney, [facility] 400 [place] [address] Allergies No known active allergiesdocumented [...] money to get more. Never true 10/08/2023 [place] Depression Scale Answer Date Recorded [place] Depression Scale Total 0 11/16/2023 The thought [...] 12/01/2023 9:00 AM EDT Office [facility] [address] [address] Erin Hernandez CRNP [address] [address] 12/02/2023 4:00 PM EDT Pharmacy Pharmacy, [place] [address] [place] [address] [facility], [facility] [address] [place] [address] Health Maintenance Due Date Last Done Comments [...] filedocumented as of this encounter Care Teams Filler Picker Relationship Specialty Start Date End Date Oliva Paredes MD [address] [place] [address] [place] [address] PCP - General Family Medicine 09/21/23 documented as of this encounter
--- OUTSIDE RECORDS SUMMARY | 2024-01-11 04:48 | External Medical Summary | Summary of Care ---
Author Name Unknown Organization [facility] Address [address] [place] [address] Phone [phone] Care Team Providers Care Litigation Partner Name Role Phone Oliva Paredes MD Primary Care Prov ider Reason for Visit * Reason Onset Date Comments Anemia Follow-Up 11/24/2023 * Evaluate & Treat - Unlimited Visits (Within 10 days (routine)) - Pending Review Specialty Diagnoses / Procedures Referred By Gretel t Referred To Contact Pharmacist / Pharmacy Diagnoses [place] (iron deficiency anemia) Eryn Chaney, GIUSEPPE [address] [place] [address] Referral ID Status Reason Start Date Expiration Date Visits Requested Visits Authorized [id number] Pending Review Specialty Services Required 11/19/2023 99 99 Encounter Details Date Type Department Care Team (Late st Contact Info) Description 11/24/2023 4:00 PM EDT Pharmacy Pharmacy, [place] [address] [place], [place] [phone] Clinic, Anemia [address] [place], [place] [id number] Iron deficiency anemia, unspecified iron deficiency anemia [...] money to get more. Never true 10/08/2023 [place] Depression Scale Answer Date Recorded [place] Depression Scale Total 0 11/16/2023 The thought [...] Progress Notes * Katharine Bardales, [facility] - 11/24/2023 2:44 PM EDT Patient Phone Numbers Patient referred by Eryn Chaney CNM for evaluation of anemia by the Anemia Clinic. Called patient to introduce role/clinic and to review labs from 11/15. SRUTHIOVAdelaida. Hgb: 10.9 g/dL TSAT: 15 % Ferritin: 32 ng/mL B12: 290 pg/mL FA: >20.0 ng/mL GA: 31w4d Estimated Date of Delivery: 01/22/24 Hgb is below target range for the third trimester. Iron studies within target range. B12 level below target range. FA level within target range. Per chart review, patient is taking B12 1000mcg daily and appears to be tolerating it well. Patient qualifies for IV iron repletion. Tentative Plan: Venofer 300 mg IV weekly x 3 doses at SP. Orders need to be placed and routed to appropriate parties if patient agreeable to intervention. Follow-up labs to be scheduled ~4-6 weeks after iron repletion completed if appropriate prior to delivery. Anemia Clinic will continue to follow. Thank you for allowing us to participate in the care of thispatient. Thanks, Katharine Bardales [facility] Clinical Pharmacist [facility] Anemia Clinic (P: [phone]) 11/24/2023 2:44 PM documented in this encounter Plan of Treatment Upcoming Encounters Date Type Department Care Team (Late st Contact Info) Description 12/01/2023 9:00 AM EDT [facility] [address] [place] [address] Erin Hernandez CRNP [address] [place] [address] 12/02/2023 4:00 PM EDT Pharmacy Pharmacy, [place] [address] [place] [address] Clinic, Anemia [address] [place] [address] Scheduled Referrals Name Type Priority Associated Diagnoses [...] Primary documented in this encounter Care Teams Litigation Partner Relationship Specialty Start Date End Date Oliva Paredes MD [address] [place] [address] [place] [address] PCP - General Family Medicine 09/21/23 documented as of this encounter
--- OUTSIDE RECORDS SUMMARY | 2024-01-11 04:49 | External Medical Summary | Summary of Care ---
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 Return Encounter Details Date Type Department Care Team (Late st Contact Info) Description 09/23/2023 2:30 PM EST Office Visit Gynecology/Obstetric s Jose Varghese [address] [place] [address] Backer, SURYA Norman [address] [place] [address] Surveillance of previously prescribed implantable subdermal contraceptive*; examination or test, positive result Allergies No known active allergiesdocumented as of this encounter (statuses as of 09/23/2023) Medications Medication Sig Dispensed Refills Start Date End Date Status Plus 27-1 MG Oral TabletIndications:Pre gnancy examination or test, positive result Take 1 Tablet by mouth in the morning. 100 Tablet 3 09/23/2023 Active documented as of this encounter (statuses as of 09/23/2023) Active Problems No known active problems documented as of this encounter (statuses as of 09/23/2023) Immunizations Name Administration Dates Next Due COVID-19 mRNA, LNP-s, No Pre serve, 2-Dose Series (Livefyre) 03/16/2021 DTaP Dipth/Tet/Acell Pertussis (Infanrix), Peds 12/04/2005,03/26/2005,01/24/2005,11/11 [...] Recorded PHQ Adult Total Score 0 10/06/2022 Sex and Gender Information Value Date Recorded Sex Assigned at Not on file Gender Identity Not on file Sexual Orientation Not on file Job Start Date Occupation Industry Not on file Not on file Not on file documented as of this encounter Last Filed Vital Signs Vital Sign Reading Time Taken Comments Blood Pressure 132/64 09/23/2023 2:31 PM EST Pulse - - Temperature - - Respiratory Rate - - Oxygen Saturation - - Inhaled Oxygen Concentration - - Weight 92.6 kg (204 lb 3.2 oz) 09/23/2023 2:31 P M EST Height 167.6 cm (5' 6") 09/23/2023 2:31 PM EST Body Mass Index 32.96 09/23/2023 2:31 PM EST documented in this encounter Progress Notes * Shaista Munson CRNP - 09/23/2023 2:34 PM EST Implant removal progress note Tanya Neal 18 year old is here for removal of Nexplanon implant. Positive test at home, beta hcg >8,000. Has u/s scheduled this afternoon. Wishes to continue the . Rx sent for vitamins. Date of procedure: 09/23/2023 Preop Dx: Desired removal of Nexplanon subdermal implant Post op Dx: same Procedure: Removal of Nexplanon Surgeon: SURYA Mckinley Anesthesia: 1ml of 2% Lidocaine as local to medial proximal left upper extremity Findings: normal Complications: none Disposition: home Procedure Details: Patient signed informed consent. A "time out" was initiated by SURYA Mckinley prior to procedure. The patient was identified by name and date of . The correct procedure, and correct site identified. Correct positioning (as applicable). There is availability of necessary equipment. Patient states she is not allergic to latex. The implant was palpated on the inner left upper arm. The area was cleansed with betadine and was injected with 2% Lidocaine for anesthesia. Sterile gloves and draping was applied. An 11 blade was used to make a small 1 cm incision at the entry site of the implant. The implant was grasped with forceps and easily removed. Steris strips were placed over the incision and a pressure dressing applied.She was instructed to leave her steri strips on but may take the pressure dressing off tomorrow. Nocomplications, patient tolerated the procedure well. Post-procedure instructions reviewed. SURYA Mckinley 09/23/2023 documented in this encounter Nursing Notes * Lzi Navas RN - 09/23/2023 2:32 PM EST Patient here for nexplanon removal documented in this encounter Plan of Treatment Upcoming Encounters Date Type Department Care Team (Late st Contact Info) Description 09/23/2023 3:30 PM EST [facility] [address] [place] [address] examination or test, positive result 10/07/2023 8:00 AM EST Office Visit Family Medicine [address] [place] [phone] Oliva Paredes MD [address] [place] [address] [place] [address] 10/08/2023 2:00 PM EST Office Visit Gynecology/Obstetric s [facility] [address] [place] [address] Rebekah Rios PA-C [address] [place] [address] Health Maintenance Due Date Last Done Comments COVID-19 Vaccine ( season) 2023 03/16/2021 Influenza Vaccine (FLU shot) (#1) 2023 11/08/2015, 07/11/2014, 06/15/2012, Additional history exists Depression Screening 10/06/2023 10/06/2022 Gonorrhea / Chlamydia Screen 10/06/2023 10/06/2022 Yearly Wellness Visit 10/06/2023 10/06/2022, 019 DTaP,Tdap,and Td Vaccines (6 - Td or [...] as of this encounter Visit Diagnoses Diagnosis Surveillance of previously prescribed implantable subdermal contraceptive- Primary examination or test, positive result examination or test, positive result documented in this encounter Care Teams Personnel Scheduler Relationship Specialty Start Date End Date Oliva Paredes MD [address] [place] [address] [place] [phone] PCP - General Family Medicine 09/21/23 documented as of this encounter
--- OUTSIDE RECORDS SUMMARY | 2024-01-11 04:49 | External Medical Summary ---
Author Name Unknown Address Unknown Organization K01:[facility] [place] [address] [place] [address] Laboratory Report Ordering Provider Test Date Status LEE JAMES 10/08/2023 13:43:49 Final Observation Date Value Abnormality Reference (Units ) Status Chlamydia trachomatis rRNA [Presence] in Specimen by SANTO with probe detection 10/08/2023 13:43:49 Negative Negative Final No Chlamydia trachomatis det ected by retail financial analyst-mediated nucleic acid amplification. Neisseria gonorrhoeae rRNA [ Presence] in Specimen by SANTO with probe detection 10/08/2023 13:43:49 Negative Negative Final No Neisseria gonorrhoeae det ected by retail financial analyst-mediated nucleic acid amplification. Performing Location [facility] [place] [address] [place] [address]
--- OUTSIDE RECORDS SUMMARY | 2024-01-11 04:49 | External Medical Summary ---
Author Name Unknown Address Unknown Organization K01:[facility] [place] [address] [place] [address] Laboratory Report Ordering Provider Test Date Status LEE JAMES 10/08/2023 15:02:09 Final Observation Date Value Abnormality Reference (Units ) Status SYNC LEUKOCYTES IN BLOOD BY AUTOMATED COUNT 10/08/2023 15:02:09 10.78 4.00-10.80 (K/uL) Final Segs 10/08/2023 15:02:09 74.9 Above high normal 35.0-65.0 (%) Final Lymphs % 10/08/2023 15:02:09 18.3 Below low normal 23.0-53.0 (%) Final Monos 10/08/2023 15:02:09 4.9 1.0-11.0 (%) Final Eosinophils 10/08/2023 15:02:09 1.0 0.0-6.0 (%) Final Basos 10/08/2023 15:02:09 0.2 0.0-2.0 (%) Final Immature Granulocyte, Percent 10/08/2023 15:02:09 0.7 0.0-2.0 (%) Final Absolute Segs 10/08/2023 15:02:09 8.07 Above high normal 1.80-8.00 (K/uL) Final Lymphs, absolute 10/08/2023 15:02:09 1.97 1.20-5.40 (K/ul) Final Monos, Abs 10/08/2023 15:02:09 0.53 0.00-1.10 (K/uL) Final Eos, Abs 10/08/2023 15:02:09 0.11 0.00-0.70 (K/uL) Final Basos, Abs 10/08/2023 15:02:09 0.02 0.00-0.20 (K/uL) Final Immature Granulocytes, Number 10/08/2023 15:02:09 0.08 0.00-0.20 (K/uL) Final Performing Location [facility] [place] [address] [facility] [address]
--- OUTSIDE RECORDS SUMMARY | 2024-01-11 04:49 | External Medical Summary | Summary of Care ---
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.] documented in this encounter Nursing Notes * Crystal Milian LPN - 09/23/2023 3:44 PM EST NOB intake completed in person today. * Liz Navas RN - 09/23/2023 2:32 PM EST Patient here for nexplanon removal documented in this encounter Plan of Treatment Upcoming Encounters Date Type Department Care Team (Late st Contact Info) Description 10/07/2023 8:00 AM EST Office Visit Family Medicine [address] [place] [phone] Oliva Paredes MD [address] [place] [address] [place] [address] 10/08/2023 1:30 PM EST Office Visit Gynecology/Obstetrics [facility] [address] [place] [address] Rebekah Rios PA-C [address] [place] [address] 10/08/2023 2:15 PM EST Imaging Radiology [facility] 2nd [facility] [address] [place] [address] Health Maintenance Due Date Last Done Comments [...] contraceptive- Primary examination or test, positive result documented in this encounter Care Teams Research Associate Quality Control Qc Relationship Specialty Start Date End Date Oliva Paredes MD [address] [place] [address] [place] [address] PCP - General Family Medicine 09/21/23 documented as of this encounter
--- OUTSIDE RECORDS SUMMARY | 2024-01-11 04:49 | External Medical Summary | Summary of Care ---
Author Name Unknown Organization [facility] Address [address] [place] [address] Phone [phone] Care Team Providers Care Nail Polish Brush Machine Feeder Name Role Phone Oliva Paredes MD Primary Care Prov ider Reason for Visit * Reason Comments Outpatient Testing Encounter Details Date Type Department Care Team (Late st Contact Info) Description 10/08/2023 3:50 PM EST Laboratory Laboratory, [facility] [address] [facility] [place] [address] [facility] 132 [place] [address] Encounter for supervision of normal first in second trimester Allergies No known active allergiesdocumented as of this encounter (statuses as of 10/08/2023) Medications Medication Sig Dispensed Refills Start Date End Date Status Plus 27-1 MG Oral TabletIndications:Pre gnancy examination or test, positive result Take 1 Tablet by mouth in the morning. 100 Tablet 3 09/23/2023 Active documented as of this encounter (statuses as of 10/08/2023) Active Problems Estimated Date of Delivery Comme nts Yes 01/22/2024 Based on Ultraso und No known active problems documented as of this encounter (statuses as of 10/08/2023) Immunizations Name Administration Dates Next Due COVID-19 mRNA, LNP-s, No Pre serve, 2-Dose Series (Retrace) 03/16/2021 DTaP Dipth/Tet/Acell Pertussis (Infanrix), Peds 12/04/2005,03/26/2005,01/24/2005,11/11 [...] money to get more. Never true 10/08/2023 [place] Depression Scale Answer Date Recorded [place] Depression Scale Total 0 10/08/2023 The thought [...] Description 11/02/2023 3:20 PM EDT Laboratory Laboratory, [facility] [address] [facility] [place] [phone] [facility] [address] [facility] [place] [address] 11/02/2023 3:45 PM EDT Office Visit Gynecology/Obstetrics [facility] [address] [facility] [place] [address] Eryn Chaney, [address] [address] Pending Results Name Type Priority Associated Diagnoses Date /Time TYPE AND SCREEN Lab Routine Encounter for supervision of normal first in second trimester 10/08/2023 3:02 PM EST RUBELLA IGG ANTIBODY Lab Routine Encounter for supervision of normal first in second trimester 10/08/2023 3:02 PM EST HEPATITIS B SURFACE ANTIGEN Lab Routine Encounter for supervision of normal first in second trimester 10/08/2023 3:02 PM EST HIV ANTIGEN & ANTIBODY SCREEN W/ CONFIRMATION Lab Routine Encounter for supervision of normal first in second trimester 10/08/2023 3:02 PM EST CBC WITH WBC DIFFERENTIAL AND ANEMIA REFLEX WORKUP Lab Routine Encounter for supervision of normal first in second trimester 10/08/2023 3:02 PM EST HEPATITIS C ANTIBODY SCREEN WITH PROGRESSION TO HEPATITIS C RNA QUANTITATIVE Lab Routine Encounter for supervision of normal first in second trimester 10/08/2023 3:02 PM EST SYPHILIS ANTIBODY SCREEN WITH REFLEX TO RPR Lab Routine Encounter for supervision of normal first in second trimester 10/08/2023 3:02 PM EST ANEMIA CBC Lab Routine Encounter for supervision of normal first in second trimester 10/08/2023 3:02 PM EST DIFFERENTIAL, AUTOMATED Lab Routine Encounter for supervision of normal first in second trimester 10/08/2023 3:02 PM EST ANEMIA REFLEX CHEMISTRY HOLD Lab Routine Encounter for supervision of normal first in second trimester 10/08/2023 3:02 PM EST HEPATITIS C ANTIBODY Lab Routine Encounter for supervision of normal first in second trimester 10/08/2023 3:02 PM EST HEPATITIS C RNA ADD ON Lab Routine Encounter for supervision of normal first in second trimester 10/08/2023 3:02 PM EST SYPHILIS ANTIBODY SCREEN Lab Routine Encounter for supervision of normal first in second trimester 10/08/2023 3:02 PM EST ABO/RH Lab Routine Encounter for supervision of normal first in second trimester 10/08/2023 3:04 PM EST Health Maintenance Due Date Last Done Comments [...] in second trimester Supervision of normal first documented in this encounter Care Teams Nail Polish Brush Machine Feeder Relationship Specialty Start Date End Date Oliva Paredes MD [address] [place] [address] [place] [address] PCP - General Family Medicine 09/21/23 documented as of this encounter
--- OUTSIDE RECORDS SUMMARY | 2024-01-11 04:49 | External Medical Summary ---
Author Name Unknown Address Unknown Organization [id number]:LABORATORY [facility] [place] - [address] [place] [address] Laboratory Report Ordering Provider Test Date Status LEE JAMES 10/08/2023 15:02:09 Final Observation Date Value Abnormality Reference (Units ) Status WBC, Total 10/08/2023 15:02:09 10.78 4.00-10.8 0 (K/uL) Final RBC 10/08/2023 15:02:09 3.83 3.85-5.15 (M/uL) Final Hemoglobin 10/08/2023 15:02:09 11.0 Below low normal 12 .0-15.3 (g/dL) Final Anemia reflex testing trigge rs on a HGB < 12.0 for Females and HGB < 13.0 for Males in accordance with the WHO Anemia Guidelines
Anemia reflex testing triggers on a HGB < 12.0 for Females and HGB < 13.0 for Males in accordance with the WHO Anemia Guidelines HCT 10/08/2023 15:02:09 34.7 Below low normal 36. 0-45.2 (%) Final MCV 10/08/2023 15:02:09 90.6 81.5-97.5 (fL) Final MCH 10/08/2023 15:02:09 28.7 27.0-34.0 (pg) Final MCHC 10/08/2023 15:02:09 31.7 32.0-36.0 (g/dL) Final RDW 10/08/2023 15:02:09 13.3 11.5-15.5 (%) Final Platelets 10/08/2023 15:02:09 271 140-400 (K /uL) Final MPV 10/08/2023 15:02:09 10.2 6.6-11.1 ( fL) Final Nucleated erythrocytes/100 leukocytes [Ratio] in Blood by Automated count 10/08/2023 15:02:09 0 <=0 (/100 WBCs) Final Performing Location LAB[facility]ORY [facility] - [address] [facility] [address]
--- OUTSIDE RECORDS SUMMARY | 2024-01-11 04:49 | External Medical Summary ---
Author Name Unknown Address Unknown Organization K01:[facility] [place] - [address] [place] [address] Laboratory Report Ordering Provider Test Date Status LEE JAMES 10/08/2023 15:02:09 Final Observation Date Value Abnormality Reference (Units ) Status Vitamin B12 10/08/2023 15:02:09 650 [id number] (pg/mL) Final Performing Location [facility] [place] - [address] [place] [address]
--- OUTSIDE RECORDS SUMMARY | 2024-01-11 04:49 | External Medical Summary | Summary of Care ---
Author Name Unknown Organization [facility] Address [address] [facility] [address] Phone [phone] Care Team Providers Care Customer Care Agent Name Role Phone Oliva Paredes MD Primary Care Prov ider Encounter Details Date Type Department Care Team (Late st Contact Info) Description 09/23/2023 Telephone Gynecology/Obstetrics [facility] [address] [place] [address] BackerShaista CRNP [address] [place] [address] Allergies No known active allergiesdocumented as of this encounter (statuses as of 09/24/2023) Medications Medication Sig Dispensed Refills Start Date End Date Status Plus 27-1 MG Oral TabletIndications:Pre gnancy examination or test, positive result Take 1 Tablet by mouth in the morning. 100 Tablet 3 09/23/2023 Active documented as of this encounter (statuses as of 09/24/2023) Active Problems Estimated Date of Delivery Comme nts Yes 01/22/2024 Based on Ultraso und No known active problems documented as of this encounter (statuses as of 09/24/2023) Immunizations Name Administration Dates Next Due COVID-19 [...] encounter Miscellaneous Notes * Telephone Encounter - Crystal Milian LPN - 09/23/2023 3:35 PM EST Pt scheduled for NOB visit 10/08/23 at 1:15pm with Rebekah Rios Anatomy US 10/08/23 at 2:15pm. LM for pt to call office to review appt information. MyG sent as well. * Telephone Encounter - Shaista Munson CRNP - 09/23/2023 3:26 PM EST Please schedule anatomy scan with NOB visit. SURYA Mckinley documented in this encounter Plan of Treatment Upcoming Encounters Date Type Department Care Team (Late st Contact Info) Description 10/07/2023 8:00 AM EST Office Visit Family Medicine [address] [place] [phone] Oliva Paredes MD [address] [place] [address] [place] [address] 10/08/2023 1:30 PM EST Office Visit Gynecology/Obstetrics [facility] [address] [place] [address] Rebekah Rios PA-C [address] [place] [address] 10/08/2023 2:15 PM EST Imaging [facility] [address] [place] [address] Scheduled Orders Name Type Priority Associated Diagnoses Orde r Schedule US PREG SINGLE/1ST GEST, 14 WEEKS OR LATER Medical Imaging Routine 22 weeks gestation of Expected: 09/30/2023 (Approximate), Expires: 10/21/2024 Health Maintenance Due Date Last Done Comments [...] as of this encounter Visit Diagnoses Diagnosis 22 weeks gestation of - Primary state, incidental documented in this encounter Care Teams Customer Care Agent Relationship Specialty Start Date End Date Oliva Paredes MD [address] [place] [address] [place] [address] PCP - General Family Medicine 09/21/23 documented as of this encounter
--- OUTSIDE RECORDS SUMMARY | 2024-01-11 04:49 | External Medical Summary ---
Author Name Unknown Address Unknown Organization K01:[facility] - [address] [place] [address] Laboratory Report Ordering Provider Test Date Status LEE JAMES 10/08/2023 15:02:09 Final Observation Date Value Abnormality Reference (Units ) Status ABO 10/08/2023 15:02:09 O Final RH 10/08/2023 15:02:09 Positive Final RED BLOOD CELL ANTIBODY SCREEN 10/08/2023 15:02:09 Negative Final SPECIMEN EXPIRATION DATE 10/08/2023 15:02:09 10/11/2023 23:59 Final Performing Location [facility] - [address] [place] [address]
--- OUTSIDE RECORDS SUMMARY | 2024-01-11 04:49 | External Medical Summary ---
Author Name Unknown Address Unknown Organization K01:LAB[facility]ORY [facility] - [address] [place] [address] Laboratory Report Ordering Provider Test Date Status LEE JAMES 10/08/2023 15:02:09 Final Observation Date Value Abnormality Reference (Units ) Status Folic Acid 10/08/2023 15:02:09 10.9 >4.5 (ng/ mL) Final Performing Location [facility] - [address] [place] [address]
--- OUTSIDE RECORDS SUMMARY | 2024-01-11 04:49 | External Medical Summary | Summary of Care ---
Author Name Unknown Organization [facility] Address [address] [facility] [place] [address] Phone [phone] Care Team Providers Care Cleaner Touch Up Worker Name Role Phone Oliva Paredes MD Primary Care Prov ider Reason for Visit * Reason Comments Initial Visit Encounter Details Date Type Department Care Team (Late st Contact Info) Description 10/08/2023 1:30 PM EST Office Visit Gynecology/Obstetric s Jose Varghese [address] [place] [address] Rebekah Rios PA-C [address] [place] [phone] Encounter for supervision of normal first in second trimester*; Late care; Medication exposure during first trimester [...] money to get more. Never true 10/08/2023 [place] Depression Scale Answer Date Recorded [place] Depression Scale Total 0 10/08/2023 The thought of harming myself has occurred to me . Never 10/08/2023 Estimated Date of Delivery Comme nts Yes 01/22/2024 Based on Ultraso und Sex and Gender Information Value Date Recorded Sex Assigned at Female 10/08/2023 1:23 PM EST Gender Identity Female 10/08/2023 1:23 PM EST Sexual Orientation Straight 10/08/2023 1 :23 PM EST Job Start Date Occupation Industry Not on file Not on file Not on file documented as of this encounter Last Filed Vital Signs Vital Sign Reading Time Taken Comments Blood Pressure 122/64 10/08/2023 1:01 PM EST Pulse - - Temperature - - Respiratory Rate - - Oxygen Saturation - - Inhaled Oxygen Concentration - - Weight 95.3 kg (210 lb) 10/08/2023 1:01 PM EST Height 167.6 cm (5' 6") 10/08/2023 1:01 PM EST Body Mass Index 33.89 10/08/2023 1:01 PM EST documented in this encounter Progress Notes * Rebekah Rios PA-C - 10/08/2023 1:21 PM EST CC: NOB HPI: Tanya Neal is a 18 year old female here for initial OB exam. WILFREDO 01/22/2024 by second trimester ultrasound completed 09/23/2023. Indicating viable wetzel IUP at 22w5d. Has anatomy ultrasound scheduled later today. Pt is currently 24w6d . Had Nexplanon inserted for portion of before + test and removal on 09/23/2023. Nexplanon was inserted 05/11/2023. Pt reports LMP 04/25/2023, approximate date. Period were regular prior to Nexplanon insertion. Denied any unprotected intercourse for 2 weeks prior insertion. Had negative UPT in office on 05/11/2023. She is taking vitamins. Reviewed PMH, social hx, family hx, surgical hx, ob hx with patient. Current symptoms: none. Denies any LOF, VB, contractions. Pos FM. Discussed Qnatal and Quad screen. Reviewed current medications with patient. Last pap smear: na given age [place] Depression Screen 10/08/2023 13:22 [place] Depression Screening I have been able to laugh and see the funny side of things. As much as I always could [0] I have looked forward with enjoyment to things. As much as I ever did [0] I have blamed myself unnecessarily when things went wrong. No, never [0] I have been anxious or worried for no good reason. No, not at all [0] I have felt scared or panicky for no good reason. No, not at all [0] Things have been getting on top of me. No, I have been coping as well as ever [0] I have been so unhappy that I have had difficulty sleeping. Not at all [0] I have felt sad or miserable. No, not at all [0] I have been so unhappy that I have been crying. No, never [0] The thought of harming myself has occurred to me. Never [0] [place] Depression Scale Total 0 OB History Para Term AB Living 1 0 0 0 0 0 SAB IAB Ectopic Multiple Live Births 0 0 0 0 0 # Outcome Date GA Lbr [place]/2nd Weight Sex Delivery Anes PTL Lv 1 Current Past Medical History: Diagnosis Date No known health problems Social History Socioeconomic History Marital status: Single Tobacco Use Smoking status: Never Smokeless tobacco: Never Vaping Use Vaping Use: Never used Substance and Sexual Activity Alcohol use: No Drug use: Never Sexual activity: Yes Partners: Male Past [place]: [place] [address] - REMOVE TONSILS Current Outpatient Medications Medication Sig Dispense Refill Plus 27-1 MG Oral Tablet Take 1 Tablet by mouth in the morning. 100 Tablet 3 No current facility-administered medications for this visit. Review of patient's allergies indicates: No Known Allergies Family History Problem Relation Age of Onset No Known Problems Mother No Known Problems Father Denies family history of genetic conditions in patient's and FOB's families. ROS: General: no fevers, chills CV: no chest pain, SOB GI: no constipation, diarrhea, nausea Breast: no masses, nipple discharge, tenderness : no vaginal bleeding, unusual vaginal discharge, dysuria Psychological: no anxiety, depression, SI/HI PHYSICAL EXAM: please see physical +FHT 150's, acceleration into 160's then back to 150's Metal Spraying Machine Operator Documentation Provider requested community recreation programmer. Name of community recreation programmer: CINDI Cadet ASSESSMENT/PLAN: Encounter for supervision of normal first in second trimester (Primary) - CULTURE, URINE, QUANTITATIVE - TYPE AND SCREEN; Future; Expected date: 10/08/2023 - RUBELLA IGG ANTIBODY; Future; Expected date: 10/08/2023 - HEPATITIS B SURFACE ANTIGEN; Future; Expected date: 10/08/2023 - HIV ANTIGEN & ANTIBODY SCREEN W/ CONFIRMATION; Future; Expected date: 10/08/2023 - CHLAMYDIA TRACHOMATIS AND NEISSERIA GONORRHOEAE, AMPLIFIED PROBE - ABO/RH; Future; Expected date: 10/08/2023 - CBC WITH WBC DIFFERENTIAL AND ANEMIA REFLEX WORKUP; Future; Expected date: 10/08/2023 - HEPATITIS C ANTIBODY SCREEN WITH PROGRESSION TO HEPATITIS C RNA QUANTITATIVE; Future; Expected date: 10/08/2023 - SYPHILIS ANTIBODY SCREEN WITH REFLEX TO RPR; Future; Expected date: 10/08/2023 - URINALYSIS, POINT OF CARE (ENTER/EDIT) - 50-G GESTATIONAL GLUCOSE, 1 HOUR; Future; Expected date: 10/08/2023 Late care Medication exposure during first trimester of Nexplanon removed 09/23/2023. Obesity in , antepartum Will wait until 26-28 weeks for initial screen given 24w6d today. - 50-G GESTATIONAL GLUCOSE, 1 HOUR; Future; Expected date: 10/08/2023 - Discussed timing of routine OB care - Recommended Covid and flu vaccine due to increased risk of severe disease in . - Offered genetic screening and explained that screening does not provide a definitive diagnosis. Patient will notify office if she'd like to complete. - Recommended clean healthy diet and discussed foods/drinks to avoid in . Discussed recommend weight gain in . - Counseled on OTC measures to help alleviate nausea and advised to call if these are ineffective - Recommended daily vitamin. - Discussed labs as ordered and instructed patient to present to lab following appointment. - RTO in 3 weeks for KADIE PRN with concern - Anatomy ultrasound following this appointment. Recommended labs today and glucola with next visit. Rebekah A Gabriel, PA-C documented in this encounter Plan of Treatment Upcoming Encounters Date Type Department Care Team (Late st Contact Info) Description 11/02/2023 3:20 PM EDT Laboratory Laboratory, [facility] [address] [place] [phone] [facility] 132 [facility] [place] [address] 11/02/2023 3:45 PM EDT Office Visit Gynecology/Obstetrics [facility] 132 [facility] [place] [address] [address] [place] [address] Pending Results Name Type Priority Associated Diagnoses Date /Time CULTURE, URINE, QUANTITATIVE Lab Routine Encounter for supervision of normal first in second trimester 10/08/2023 4:29 PM EST TYPE AND SCREEN Lab Routine Encounter for [...] in second trimester 10/08/2023 3:02 PM EST CHLAMYDIA TRACHOMATIS AND NEISSERIA GONORRHOEAE, AMPLIFIED PROBE Lab Routine Encounter for supervision of normal first in second trimester 10/08/2023 1:43 PM EST ABO/RH Lab Routine Encounter for supervision of normal first in second trimester 10/08/2023 3:04 PM EST CBC WITH WBC DIFFERENTIAL AND [...] in second trimester 10/08/2023 3:02 PM EST Scheduled Orders Name Type Priority Associated Diagnoses Orde r Schedule TYPE AND SCREEN Lab Routine Encounter for supervision of normal first in second trimester Expected: 10/08/2023 (Approximate), Expires: 11/05/2024 RUBELLA IGG ANTIBODY Lab Routine Encounter for supervision of normal first in second trimester Expected: 10/08/2023 (Approximate), Expires: 10/08/2024 HEPATITIS B SURFACE ANTIGEN Lab Routine Encounter for supervision of normal first in second trimester Expected: 10/08/2023 (Approximate), Expires: 10/08/2024 HIV ANTIGEN & ANTIBODY SCREEN W/ CONFIRMATION Lab Routine Encounter for supervision of normal first in second trimester Expected: 10/08/2023 (Approximate), Expires: 10/08/2024 ABO/RH Lab Routine Encounter for supervision of normal first in second trimester Expected: 10/08/2023, Expires: 11/05/2024 CBC WITH WBC DIFFERENTIAL AND ANEMIA REFLEX WORKUP Lab Routine Encounter for supervision of normal first in second trimester Expected: 10/08/2023 (Approximate), Expires: 10/08/2024 HEPATITIS C ANTIBODY SCREEN WITH PROGRESSION TO HEPATITIS C RNA QUANTITATIVE Lab Routine Encounter for supervision of normal first in second trimester Expected: 10/08/2023 (Approximate), Expires: 10/08/2024 SYPHILIS ANTIBODY SCREEN WITH REFLEX TO RPR Lab Routine Encounter for supervision of normal first in second trimester Expected: 10/08/2023 (Approximate), Expires: 10/08/2024 50-G GESTATIONAL GLUCOSE, 1 HOUR Lab Routine Encounter for supervision of normal first in second trimester Obesity in , antepartum Expected: 10/08/2023, Expires: 10/08/2024 Health Maintenance Due Date Last Done Comments [...] Procedure Name Priority Date/Time Associated Diagnosis Comments URINALYSIS, POINT OF CARE (ENTER/EDIT) Routine 10/08/2023 Encounter for supervision of normal first in second trimester documented in this encounter Results * URINALYSIS, POINT OF CARE (ENTER/EDIT) (10/08/2023) Color, Urine Yellow Yellow or Light Yellow Clarity, Urine Clear Clear Glucose, Urine Negative Negative mg/dL Bilirubin, Urine Negative Negative Ketone, Urine Negative Negative mg/dL Specific Lillie, Urine 1.020 1.003 - 1.030 Blood, Urine Negative Negative pH, Urine 7.5 5.0 - 7.5 units Protein, Urine Negative Negative mg/dL Urobilinogen, Urine 0.2 0.2 - 1.0 mg/dL Nitrite, Urine Negative Negative Esterase, Urine Negative Negative Urine 10/08/2023 Rebekah Rios PA-C LAB POINT OF CARE TE ST ENTER/EDIT ORDERABLES documented in this encounter Visit Diagnoses Diagnosis Encounter for supervision of normal first in second trimester- Primary Supervision of normal first Late care Insufficient care Medication exposure during first trimester of Supervision of other high-risk Obesity in , antepartum Obesity complicating , childbirth, or the puerperium, antepartum condition or complication documented in this encounter Care Teams Cleaner Touch Up Worker Relationship Specialty Start Date End Date Oliva Paredes MD [address] [place] [address] [place] [address] PCP - General Family Medicine 09/21/23 documented as of this encounter
--- OUTSIDE RECORDS SUMMARY | 2024-01-11 04:49 | External Medical Summary ---
Author Name Unknown Address Unknown Organization [id number]:[facility] [place] [address] [place] [address] Laboratory Report Ordering Provider Test Date Status LEE JAMES 10/08/2023 15:02:09 Final Observation Date Value Abnormality Reference (Units ) Status Rubella virus IgG Ab [Presence] in Serum 10/08/2023 15:02:09 Positive Abnormal Negative Final A positive result is consist ent with having had rubella virus or vaccination. Performing Location LAB[facility]ORY [facility] [place] - [address] [place] [address]
--- OUTSIDE RECORDS SUMMARY | 2024-01-11 04:49 | External Medical Summary | Summary of Care ---
Author Name Unknown Organization [facility] Address [address] [facility] [place] [address] Phone [phone] Care Team Providers Care Head Of Sales Promotion Name Role Phone Oliva Paredes MD Primary Care Prov ider Reason for Visit * Reason Comments Initial Visit Encounter Details Date Type Department Care Team (Late st Contact Info) Description 10/08/2023 1:30 PM EST Office Visit Gynecology/Obstetric s Jose Varghese [address] [place] [address] Rebekah Rios PA-C [address] [place] [address] Encounter for supervision of normal first in [...] money to get more. Never true 10/08/2023 Meeker Depression Scale Answer Date Recorded Meeker Depression Scale Total 0 10/08/2023 The thought [...] patient. Last pap smear: na given age Meeker Depression Screen 10/08/2023 13:22 Meeker Depression Screening I have been able to [...] myself has occurred to me. 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 Name of us marketing director: CINDI Cadet ASSESSMENT/PLAN: Encounter for supervision of [...] Description 10/08/2023 3:50 PM EST Laboratory Laboratory, [facility] [address] [facility] [place] [phone] Naima Varghese [address] [place] [address] [place] [address] Encounter for supervision of normal first in second trimester 11/02/2023 3:20 PM EDT Laboratory Laboratory, [facility] [address] [facility] [place] [phone] Naima Varghese [address] [place] [address] [place] [address] 11/02/2023 3:45 PM EDT Office Visit Gynecology/Obstetric s [address] [place] [address] Eryn Chaney, [address] [address] Pending Results Name Type Priority Associated Diagnoses [...] Type Priority Associated Diagnoses Orde r Schedule CULTURE, URINE, QUANTITATIVE Lab Routine Encounter for supervision of normal first in second trimester Ordered: 10/08/2023 TYPE AND SCREEN Lab Routine Encounter for [...] second trimester Expected: 10/08/2023 (Approximate), Expires: 10/08/2024 URINALYSIS, POINT OF CARE (ENTER/EDIT) Point of Care Testing Routine Encounter for supervision of normal first in second trimester Ordered: 10/08/2023 50-G GESTATIONAL GLUCOSE, 1 HOUR Lab Routine [...] first documented in this encounter Care Teams Head Of Sales Promotion Relationship Specialty Start Date End Date Oliva Paredes MD [address] [place] [address] [place] [address] PCP - General Family Medicine 09/21/23 documented as of this encounter
--- OUTSIDE RECORDS SUMMARY | 2024-01-11 04:49 | External Medical Summary ---
Author Name Unknown Address Unknown Organization K01:[facility] [place] [address] [place] [address] Laboratory Report Ordering Provider Test Date Status LEE JAMES 10/08/2023 15:02:09 Final Observation Date Value Abnormality Reference (Units ) Status Creatinine 10/08/2023 15:02:09 0.5 0.5-1.0 (mg/dL) Final Glomerular filtration rate/1.73 sq M.predicted [Volume Rate/Area] in Serum, Plasma or Blood by Creatinine-based formula (CKD-EPI) 10/08/2023 15:02:09 >90 >=60 (mL/min) Final eGFR is calculated based on the CKD-EPI 2020 equation Performing Location [facility] [place] [address] [place] [address]
--- OUTSIDE RECORDS SUMMARY | 2024-01-11 04:49 | External Medical Summary ---
Author Name Unknown Address Unknown Organization K01:[facility]ORY [facility] [place] [address] [place] [address] Laboratory Report Ordering Provider Test Date Status LEE JAMES 10/08/2023 15:02:09 Final Observation Date Value Abnormality Reference (Units ) Status Hep B surface Ag 10/08/2023 15:02:09 Negative Neg ative Final Performing Location [facility] - [address] [facility] [place] [facility] [address]
--- OUTSIDE RECORDS SUMMARY | 2024-01-11 04:49 | External Medical Summary ---
Author Name Unknown Address Unknown Organization K01:LABORATORY [place] [address] [place] [address] Laboratory Report Ordering Provider Test Date Status LEE JAMES 10/08/2023 15:02:09 Final Observation Date Value Abnormality Reference (Units ) Status Retic, % (auto) 10/08/2023 15:02:09 2.28 Above high normal 0.80-1.90 (%) Final Reticulocytes, Absolute 10/08/2023 15:02:09 86.2 31.3-100.1 (K/uL) Final Reticulocyte fraction, immature 10/08/2023 15:02:09 23.8 Above high normal 2.5-20.6 (%) Final Reticulocyte HGB 10/08/2023 15:02:09 31.5 29.7-37.4 (pg) Final Performing Location [facility] [place] - [facility] [place] [address]
--- OUTSIDE RECORDS SUMMARY | 2024-01-11 04:49 | External Medical Summary ---
Author Name Unknown Address Unknown Organization K01:[facility] [place] [address] [place] [address] Laboratory Report Ordering Provider Test Date Status LEE JAMES 10/08/2023 16:29:49 Final Observation Date Value Abnormality Reference (Units) Status Bacteria identified in Specimen by Culture 10/08/2023 16:29:49 No significant growth Final Test: Culture, Urine, Quant itative
Specimen Source: Urine, Clean Catch
Specimen Type: Urine
Specimen Date: 10/08/2023 4:29 PM
Result Date: 10/09/2023 3:49 PM
Result Status: Final result
Resulting Lab: [facility]ORY [facility] [place]
[address]
[place] [id number]

CULTURE

No significant growth

null Performing Location [facility]ORY [facility] [place] - [address] [place] [id number]
--- OUTSIDE RECORDS SUMMARY | 2024-01-11 04:49 | External Medical Summary ---
Author Name Unknown Address Unknown Organization K01:LABORATORY [facility] - [address] [place] [address] Laboratory Report Ordering Provider Test Date Status LEE JAMES 10/08/2023 15:02:09 Final Observation Date Value Abnormality Reference (Units ) Status Hep C Ab 10/08/2023 15:02:09 Negative Negative Final Further HCV quantitative ana cristina ting not performed per protocol. Performing Location LAB[facility]ORY [facility] - [address] [place] [address]
--- OUTSIDE RECORDS SUMMARY | 2024-01-11 04:49 | External Medical Summary ---
Author Name Unknown Address Unknown Organization K01:[facility] [place] [facility] [address] [facility] [address] [facility] [address] Laboratory Report Ordering Provider Test Date Status LEE JAMES 10/08/2023 15:02:09 Final Observation Date Value Abnormality Reference (Units ) Status HIV 1+2 Ab+HIV1 p24 Ag [Presence] in Serum or Plasma by Immunoassay 10/08/2023 15:02:09 Negative Negative Final Negative HIV-1/2 antigen and antibody screening tset results usually indicate the absence of HIV-1 and HIV-2 infection. However, such negative results do not rule-out acute HIV infection. If acute HIV-1 infection is highly suspected, it is recommended that a specimen be submitted for detection of HIV-1 RNA. Performing Location [facility] [place] [address] [place] [address]
--- OUTSIDE RECORDS SUMMARY | 2024-01-11 04:49 | External Medical Summary ---
Author Name Unknown Address Unknown Organization K01:[facility] [place] [address] [place] [address] Laboratory Report Ordering Provider Test Date Status LEE JAMES 10/08/2023 15:02:09 Final Observation Date Value Abnormality Reference (Units ) Status Treponema pallidum Ab [Presence] in Serum by Immunoassay 10/08/2023 15:02:09 Nonreactive Nonreactive Final No serologic evidence of syp hilis. No additional testing clinicially indicated at this time. Consider repeat testing in 2-4 weeks if acute or primary syphilis is suspected. Performing Location [facility] [place] [address] [place] [address]
--- OUTSIDE RECORDS SUMMARY | 2024-01-11 04:49 | External Medical Summary | Summary of Care ---
Author Name Unknown Organization [facility] Address [address] [facility] [address] Phone [phone] Care Team Providers Care Marker Maker Name Role Phone Oliva Paredes MD Primary Care Prov ider Encounter Details Date Type Department Care Team (Late st Contact Info) Description 09/23/2023 Telephone Gynecology/Obstetrics [facility] [address] [place] [address] BackerShaista CRNP [address] [place] [address] Allergies No known active allergiesdocumented as of [...] 8:00 AM EST Office Visit Family Medicine [address] [place] [phone] Oliva Paredes MD [address] [place] [address] [place] [address] 10/08/2023 1:30 PM EST Office Visit Gynecology/Obstetrics [facility] [address] [place] [address] Rebekah Rios PA-C [address] [place] [address] 10/08/2023 2:15 PM EST Imaging [facility] [address] [place] [address] Scheduled Orders Name Type Priority Associated Diagnoses [...] incidental documented in this encounter Care Teams Marker Maker Relationship Specialty Start Date End Date Oliva Paredes MD [address] [place] [address] [place] [address] PCP - General Family Medicine 09/21/23 documented as of this encounter
--- OUTSIDE RECORDS SUMMARY | 2024-01-11 04:49 | External Medical Summary | Summary of Care ---
Author Name Unknown Organization [facility] Address [address] [facility] [place] [address] Phone [phone] Care Team Providers Care Latex Spooler Name Role Phone Oliva Paredes MD Primary Care Prov ider Reason for Visit * Reason Comments Assisted Living Assistant Return Encounter Details Date Type Department Care Team (Late st Contact Info) Description 09/23/2023 2:30 PM EST Office Visit Gynecology/Obstetric s Jose Varghese [address] [place] [address] Backer, SURYA [place] [address] [place] [address] Surveillance of previously prescribed implantable subdermal contraceptive*; [...] documented in this encounter Nursing Notes * Liz Navas RN - 09/23/2023 2:32 PM EST Patient here for nexplanon removal documented in this encounter Plan of Treatment Upcoming Encounters Date Type Department Care Team (Late st Contact Info) Description 09/23/2023 3:30 PM EST Imaging [facility] [address] [place] [address] examination or test, positive result 10/07/2023 8:00 AM EST Office Visit Family Medicine [address] [place] [phone] Oliva Paredes MD [address] [place] [address] [place] [address] 10/08/2023 2:00 PM EST Office Visit Gynecology/Obstetric s [facility] [address] [place] [address] Rebekah Rios PA-C [address] [place] [address] Health Maintenance Due Date Last Done Comments [...] result documented in this encounter Care Teams Latex Spooler Relationship Specialty Start Date End Date Oliva Paredes MD [address] [place] [address] [place] [address] PCP - General Family Medicine 09/21/23 documented as of this encounter
--- OUTSIDE RECORDS SUMMARY | 2024-01-11 04:49 | External Medical Summary ---
Author Name Unknown Address Unknown Organization K01:[facility] [place] [address] [place] [address] Laboratory Report Ordering Provider Test Date Status LEE JAMES 10/08/2023 15:02:09 Final Observation Date Value Abnormality Reference (Units ) Status TSH 10/08/2023 15:02:09 1.15 0.27-4.20 (uIU/mL) Final Performing Location LAB[facility] - [address] [place] [address]
--- OUTSIDE RECORDS SUMMARY | 2024-01-11 04:49 | External Medical Summary ---
Author Name Unknown Address Unknown Organization K01:[facility] [place] [address] [place] [address] Laboratory Report Ordering Provider Test Date Status LEE JAMES 10/08/2023 15:02:09 Final Observation Date Value Abnormality Reference (Units ) Status Ferritin 10/08/2023 15:02:09 29 13-150 (ng /mL) Final Performing Location [facility] - [address] [place] [address]
--- OUTSIDE RECORDS SUMMARY | 2024-01-11 04:50 | External Medical Summary ---
Author Name Unknown Address Unknown Organization K01:LABORATORY [place] [address] [address] [facility] [address] Laboratory Report Ordering Provider Test Date Status SRIDHAR MCDANIEL 09/22/2023 09:30:44 Final hCG can serve as a screening assay for . However, early may not give a positive hCG test result. In addition, some non- women may have a hCG result slightly higher than the reference limit. Careful interpretation of the hCG with clinical history is required to determine whether the patient may be . Observation Date Value Abnormality Reference (Units ) Status Choriogonadotropin.in tact+Beta subunit [Units/volume] in Serum or Plasma 09/22/2023 09:30:44 8362.0 Above high normal <=1.0 (mIU/mL) Final Performing Location [facility] [place] - [facility] [address] [facility] [address]
--- OUTSIDE RECORDS SUMMARY | 2024-01-11 04:50 | External Medical Summary | Summary of Care ---
Author Name Unknown Organization [facility] Address [address] [place] [address] Phone [phone] Care Team Providers Care Ore Fielder Name Role Phone Oliva Paredes MD Primary Care Prov ider Reason for Visit * Reason Onset Date Comments Order Request 09/21/2023 Encounter Details Date Type Department Care Team (Late st Contact Info) Description 09/21/2023 Telephone Family Medicine [address] [phone] Oliva Paredes MD [address] [place] [address] Order Request Allergies No known active allergiesdocumented as of this encounter (statuses as of 09/21/2023) Medications No known medicationsdocumented as of this encounter (statuses as of 09/21/2023) Active Problems No known active problems documented as of this encounter (statuses as of 09/21/2023) Immunizations Name Administration Dates Next Due COVID-19 [...] encounter Miscellaneous Notes * Telephone Encounter - Yanci Perez RN - 09/21/2023 2:46 PM EST Message left for pt that WASH HELPER will order what ever labs they want when they see her, if she has a+home test, no need to order another blood test * Telephone Encounter - Oemler, Tuyet, CALEB - 09/21/2023 9:14 AM EST An order was requested for this patient. Name of Requesting Provider: Patient Order Requested: blood work. Diagnosis/Reason for Request: Positive home test If order request is for Mammogram: Is the patient having any breast symptoms? N/A Is there a chance of ? N/A Has the patient had any breast problems in the past? NA What location AND department does the patient wish to have their order completed at? [facility] Fax Number, if applicable: n/a Call Back Number: [phone] If the caller is not a current patient, please advise the patient to call their current PCP to havethe order's prior to being seen in our office. The patient was informed that our providers would not order anything (medication, labs, etc.) prior to being seen. documented in this encounter Plan of Treatment Upcoming Encounters Date Type Department Care Team (Late st Contact Info) Description 10/07/2023 8:00 AM EST Office Visit Family Medicine [address] [phone] Oliva Paredes MD [address] [place] [address] [place] [address] 10/08/2023 2:00 PM EST Office Visit Gynecology/Obstetrics [facility] [address] [place] [address] Rebekah Rios PA-C [address] [place] [address] Health Maintenance Due Date Last Done Comments [...] filedocumented as of this encounter Care Teams Ore Fielder Relationship Specialty Start Date End Date Oliva Paredes MD [address] [place] [address] [place] [address] PCP - General Family Medicine 09/21/23 documented as of this encounter
--- OUTSIDE RECORDS SUMMARY | 2024-01-11 04:50 | External Medical Summary | Summary of Care ---
Author Name Unknown Organization [facility] Address [address] [place] [address] Phone [phone] Care Team Providers Care Agricultural Research Engineer Name Role Phone Oliva Paredes MD Primary Care Prov ider Reason for Visit * Reason Comments Outpatient Testing Encounter Details Date Type Department Care Team (Late st Contact Info) Description 09/22/2023 9:30 AM EST Laboratory Laboratory [address] [place] [phone] [place] [phone] examination or test, positive result Allergies No known active allergiesdocumented as of this encounter (statuses as of 09/22/2023) Medications No known medicationsdocumented as of this encounter (statuses as of 09/22/2023) Active Problems No known active problems documented as of this encounter (statuses as of 09/22/2023) Immunizations Name Administration Dates Next Due COVID-19 [...] 8:00 AM EST Office Visit Family Medicine [address] [place] [phone] Oliva Paredes MD [address] [place] [address] [place] [phone] 10/08/2023 2:00 PM EST Office Visit Gynecology/Obstetrics Jose Varghese [address] [place] [address] Rebekah Rios PA-C [address] [place] [address] Pending Results Name Type Priority Associated Diagnoses Date /Time BETA-HCG, QUANTITATIVE Lab Routine examination or test, positive result 09/22/2023 9:30 AM EST Health Maintenance Due Date Last Done [...] as of this encounter Visit Diagnoses Diagnosis examination or test, positive result documented in this encounter Care Teams Agricultural Research Engineer Relationship Specialty Start Date End Date Oliva Paredes MD [address] [place] [address] [place] [address] PCP - General Family Medicine 09/21/23 documented as of this encounter
--- OUTSIDE RECORDS SUMMARY | 2024-01-11 04:50 | External Medical Summary | Summary of Care ---
Author Name Unknown Organization [facility] Address [address] [place] [address] Phone [phone] Care Team Providers Care Medical Cash Poster Name Role Phone Shanique Martinez Primary Care Provider Encounter Details Date Type Department Care Team (Late st Contact Info) Description 09/16/2023 Telephone Gynecology/Obstetrics [facility] [address] [place] [address] Shaista Munson CRNP [address] [place] [address] Allergies No known active allergiesdocumented as of this encounter (statuses as of 09/16/2023) Medications No known medicationsdocumented as of this encounter (statuses as of 09/16/2023) Active Problems No known active problems documented as of this encounter (statuses as of 09/16/2023) Immunizations Name Administration Dates Next Due COVID-19 [...] Telephone Encounter - Sara Bucio RN - 09/16/2023 10:27 AM EST Spoke with pt. Pt aware. I did make an appointment for pt for 10/08 but will move that up if test ispositive. * Telephone Encounter - Shaista Munson CRNP - 09/16/2023 9:10 AM EST She can get a beta hcg at the lab. Can schedule nexplanon removal; if blood test is +, will look for sooner appt. SURYA Mckinley * Telephone Encounter - Sara Bucio RN - 09/16/2023 8:58 AM EST Pt called to set up an appointment to have her nexplanon removed. She states that her arm hurts when it gets bumped and she does not like having it. She does not know what she wants in place of this.When I offered pt an appointment for Sep. She said she thinks she needs seen sooner because she took a test yesterday and it was positive. Pt can be reached at [phone]. documented in this encounter Plan of Treatment Upcoming Encounters Date Type Department Care Team (Late st Contact Info) Description 10/07/2023 8:00 AM EST Office Visit Family Medicine [address] [place] [phone] Oliva Paredes MD [address] [place] [address] [place] [address] 10/08/2023 2:00 PM EST Office Visit Gynecology/Obstetrics [facility] [address] [place] [address] Rebekah Rios PA-C [address] [place] [address] Scheduled Orders Name Type Priority Associated Diagnoses Orde r Schedule BETA-HCG, QUANTITATIVE Lab Routine examination or test, positive result Expected: 09/16/2023 (Approximate), Expires: 09/16/2024 Health Maintenance Due Date Last Done Comments [...] Visit Diagnoses Diagnosis examination or test, positive result- Primary documented in this encounter Care Teams Medical Cash Poster Relationship Specialty Start Date End Date Shanique Martinez DO [address] [place] [address] [place] [address] PCP - General Pediatrics 09/14/18 documented as of this encounter
--- OUTSIDE RECORDS SUMMARY | 2024-01-11 04:50 | External Medical Summary | Summary of Care ---
Author Name Unknown Organization [facility] Address [address] [place] [address] Phone [phone] Care Team Providers Care Service Porter Name Role Phone Shanique Martinez DO Primary Care Provider Reason for Visit * Reason Onset Date Comments Advice 07/28/2023 Encounter Details Date Type Department Care Team (Late st Contact Info) Description 07/28/2023 Telephone Pediatrics [address] [place] [address] Shanique Martinez DO [address] [place] [address] [place] [address] Advice Allergies No known active allergiesdocumented as of this encounter (statuses as of 07/28/2023) Medications No known medicationsdocumented as of this encounter (statuses as of 07/28/2023) Active Problems No known active problems documented as of this encounter (statuses as of 07/28/2023) Immunizations Name Administration Dates Next Due COVID-19 mRNA, LNP-s, No Pre serve, 2-Dose Series ([employer]) 03/16/2021 DTaP Dipth/Tet/Acell Pertussis (Infanrix), Peds 12/04/2005,03/26/2005,01/24/2005,11/11 [...] Pneumococcal Conjugate Vacci ne, 7 Valent 07/06/2006,03/26/2005,01/24/2005,11/11 SEASONAL INFLUENZA, PF, 6 M & Above, IM , (FLULAVAL or FLUZONE) 11/08/2015,07/11/2014,06/15/2012,07/01,07/23/2010 TDAP (age 11 and older)(Adacel) 11/08/2015 [...] encounter Miscellaneous Notes * Telephone Encounter - Guerita Mcintosh LPN - 07/28/2023 12:06 PM EST Letter generated and printed. Placed in peds folder pending pick-up. Patient is aware. * Telephone Encounter - Venessa Cruz OSA - 07/28/2023 11:22 AM EST Type of letter requested: Work Does the letter need to provide any specific information: Dates missed July, , 2 and 2022. Took home covid test on 07/23/23 and was positive. Would you like letter faxed or picked up?: pickup Fax number: N/A Number to be called when ready to be picked up: [phone] Date needed: as soon as possible Please call to advise if letter will be provided. She has pcp within last year. documented in this encounter Plan of Treatment Upcoming Encounters Date Type Department Care Team (Late st Contact Info) Description 10/07/2023 8:00 AM EST Office Visit Family Medicine [address] [phone] Oliva Paredes MD [address] [place] [address] [place] [address] Health Maintenance Due Date Last Done Comments [...] filedocumented as of this encounter Care Teams Service Porter Relationship Specialty Start Date End Date Shanique Martinez DO [address] [place] [address] [place] [address] PCP - General Pediatrics 09/14/18 documented as of this encounter
--- OUTSIDE RECORDS SUMMARY | 2024-01-11 04:50 | External Medical Summary | Summary of Care ---
Author Name Unknown Organization [facility] Address [address] [facility] [place] [address] Phone [phone] Care Team Providers Care Cylinder Block Mechanic Name Role Phone Oliva Paredes MD Primary Care Prov ider Reason for Visit * Reason Onset Date Comments Test Results 09/23/2023 Encounter Details Date Type Department Care Team (Late st Contact Info) Description 09/23/2023 Telephone Gynecology/Obstetrics [facility] [address] [place] [phone] BackerShaista CRNP [address] [facility] [place] [address] Test Results Allergies No known active allergiesdocumented as of this encounter (statuses as of 09/23/2023) Medications No known medicationsdocumented as of this [...] Telephone Encounter - Sara Bucio RN - 09/23/2023 9:10 AM EST Spoke with pt. She is not certain if she plans to continue with the . She does want the nexplanon out regardless. I scheduled pt for 330 for an US (only time around appointment). Pt is agreeble. * Telephone Encounter - Sara Bucio RN - 09/23/2023 7:45 AM EST left message for patient to call office. Victor Manuel awad have a cancel for 3 today if pt is able to make it. Will need to confirm per below and also schedule US (if able around time of appointment). * Telephone Encounter - Shaista Munson CRNP - 09/23/2023 7:35 AM EST Blood work confirms . Recommend sooner appt to remove nexplanon if she wishes to continue . Will need to set up NOB appts. Recommend U/S this week to confirm that the is intrauterine. If not planning to continue , recommend appt to discuss options. SURYA Mckinley documented in this encounter Plan of Treatment Upcoming Encounters Date Type Department Care Team (Late st Contact Info) Description 09/23/2023 3:00 PM EST Office Visit Gynecology/Obstetrics [facility] [address] [place] [phone] Shaista Munson CRNP [address] [facility] [place] [phone] 10/07/2023 8:00 AM EST Office Visit Family Medicine [address] [place] [phone] Oliva Paredes MD [address] [place] [address] [place] [id number] 10/08/2023 2:00 PM EST Office Visit Gynecology/[facility]stetrics [facility] [place] [phone] Rebekah Rios PA-C [address] [place] [phone] Scheduled Orders Name Type Priority Associated Diagnoses Orde r Schedule US PELVIS TRANS-VAGINAL OB Medical Imaging Routine examination or test, positive result Expected: 09/24/2023 (Approximate), Expires: 10/21/2024 Health Maintenance Due Date [...] Primary documented in this encounter Care Teams Cylinder Block Mechanic Relationship Specialty Start Date End Date Oliva Paredes MD [address] [place] [address] [place] [phone] PCP - General Family Medicine 09/21/23 documented as of this encounter
--- OUTSIDE RECORDS SUMMARY | 2024-01-11 04:50 | External Medical Summary | Summary of Care ---
Author Name Unknown Organization [facility] Address [address] [place] [address] Phone [phone] Care Team Providers Care Trade Mark Attorney Name Role Phone Shanique Martinez Primary Care Provider Encounter Details Date Type Department Care Team (Late st Contact Info) Description 09/21/2023 Orders Only PATIENT PORTAL DO NOT DELETE THIS DEPT USED BY [place] [id number] Allergies No known active allergiesdocumented as of [...] 8:00 AM EST Office Visit Family Medicine [address] [place] [phone] Oliva Paredes MD [address] [place] [address] [place] [phone] 10/08/2023 2:00 PM EST [facility] [address] [place] [phone] Rebekah Rios PA-C [address] [place] [phone] Health Maintenance Due Date Last Done Comments [...] filedocumented as of this encounter Care Teams Trade Mark Attorney Relationship Specialty Start Date End Date Shanique Martinez DO [address] [place] [address] [place] [phone] PCP - General Pediatrics 09/14/18 documented as of this encounter
[2024-01-11 05:38] LABS: Hematocrit (blood only) 34.4 % (37.0-47.0); Hemoglobin 11.3 g/dl (12.0-16.0); Mean Corpuscular Hgb Conc 32.8 g/dL (32.0-36.0); Mean Corpuscular Volume 85.4 fL (80.0-100.0); Mean Platelet Volume 10.2 fL (9.4-12.4); Platelet Count 221 K/uL (130-400); RDW Coefficient of Variation 14.3 % (11.5-14.5); RDW Standard Deviation 44.4 fL (36.4-46.3); Red Blood Count 4.03 M/uL (4.20-5.40); White Blood Count 13.25 K/ul (4.8-10.8)
[2024-01-11] MEDS: LACTATED RINGER'S 1,000 ML IV PRN (08:04)
[2024-01-11] MEDS: fentANYL 2 MCG/ML BUPIVacaine 0.125%-NSS 100ML BAG ONE (08:47)
[2024-01-11] MEDS: LIDOCAINE 2%/EPINEPHRINE 1:200,000 20 ML PF ONE (08:49)
[2024-01-11] MEDS: BUPIVACAINE 0.25% PF 30 ML VIAL ONE (08:51)
[2024-01-11] MEDS: fentaNYL citrate PF 100 MCG/2 ML VIAL ONE (08:52)
[2024-01-11] MEDS: SODIUM CHLORIDE 0.9% PF INJ 10 ML VIAL ONE (08:52)
--- NOTE | 2024-01-11 09:06 | Anesthesiology Consultation ---
Date of Service January 11, 2024 Assessment & Plan Chart Review Chart Review: Acceptable Risk for Labor Epidural Consults Requested none History Height/Weight Height: 5 ft 6 in Weight: 103 kg Allergies Allergy/AdvReac Type Severity Reaction Status Date / Time No Known Allergies Allergy Verified 01/11/24 00:23 Medications Home Medications Medication Instructions Recorded Confirmed Last Taken B12 1 tab PO DAILY 01/11/24 01/11/24 01/10/24 iron 125 mg-iron 25 mg (asp 1 tab PO DAILY 01/11/24 01/11/24 01/10/24 gly)-folic acid 1 mg-mvit,min#38 tablet kvtlarpp-doy-Pd-FA 1 mg 1 tab PO 01/11/24 01/10/24 tablet Active Medications Generic Name Dose Route Start Last Admin Trade Name Freq PRN Reason Stop Dose Admin Lactated Ringer's 1,000 mls @ 125 mls/hr 01/11/24 03:43 01/11/24 08:33 Lr IV 01/13/24 03:42 125 mls/hr .Q8H PRN Infusion L&D Protocol Protocol Social History Smoking Status: Never smoker Hx Alcohol Use: No Hx Substance Use: No Physical Exam Vital Signs Last Vital Signs Temp 37.0 C 01/11/24 07:15 Pulse 105 H 01/11/24 09:04 Resp 18 01/11/24 07:15 BP 138/64 01/11/24 09:04 Pulse Ox 96 01/11/24 08:59 O2 Del Method Room Air 01/11/24 07:09 Testing Laboratory Results 01/11/24 04:03 Blood Type O Positive 01/11/24 04:03 Antibody Screen NEGATIVE 01/11/24 04:03
[2024-01-11] MEDS ORDERED: NALOXONE HCL 0.4 MG/1 ML VIAL/CARP IV PRN (09:10)
[2024-01-11] MEDS ORDERED: fentANYL 2 MCG/ML BUPIVacaine 0.125%-NSS 100ML BAG EPI PRN (09:10)
[2024-01-11] MEDS ORDERED: ROPIVACAINE 0.5% PF 5 MG/ML 20 ML VIAL EPI PRN (09:10)
[2024-01-11] MEDS ORDERED: NALOXONE HCL 1 MG in SODIUM CHLORIDE 0.9% 1,000 ML IV PRN (09:10)
[2024-01-11] MEDS ORDERED: ePHEDrine sulfate 50 MG/ML AMP IV PRN (09:10)
[2024-01-11] MEDS ORDERED: NALBUPHINE HCL 5 MG in SYRINGE 0 ML IV PRN (09:10)
[2024-01-11] MEDS ORDERED: diphenhydrAMINE 50 MG/ML VIAL IV PRN (09:10)
[2024-01-11] MEDS ORDERED: BUPIVACAINE 0.25% PF 30 ML VIAL EPI PRN (09:10)
[2024-01-11] MEDS ORDERED: SODIUM CHLORIDE 0.9% PF INJ 10 ML VIAL EPI PRN (09:10)
[2024-01-11] MEDS ORDERED: LIDOCAINE 2% MPF LOCAL 5 ML VIAL EPI PRN (09:10)
--- NOTE | 2024-01-11 09:27 | History & Physical Report ---
Date of Service January 11, 2024 Assessment & Plan (1) Active labor at term: Plan: 18-year-old at 38 weeks and 3 days of gestation by second trimester ultrasound, admitted for active labor, Vital signs stable afebrile, heart rate reassuring, GBS negative, AROM, clear fluid, Continue to monitor closely, augment contractions with oxytocin as needed. (2) Obesity affecting in third trimester, antepartum: (3) Late care affecting in third trimester: Admission and Anticipated Discharge Date Admission Date: January 11, 2024 History of Present Illness Primary Care Provider: PCP NO Patient is a 18-year-old G1, P0 at at 38 weeks and 3 days of gestation who was admitted by Dr. Hoyt this morning for labor. She has received epidural and now comfortable. heart rate had been category 1 and GBS is negative. Her has been uncomplicated except, 1. Late care, first visit was at 24 weeks, 2. Obesity during , pregravid BMI was 32, 3. Anemia during , received IV iron infusions 4. medication exposure during , Nexplanon during first trimester which was removed. Allergies Allergy/AdvReac Type Severity Reaction Status Date / Time No Known Allergies Allergy Verified 01/11/24 00:23 Home Medications Medication Instructions Recorded Confirmed Type B12 1 tab PO DAILY 01/11/24 01/11/24 History iron 125 mg-iron 25 mg (asp 1 tab PO DAILY 01/11/24 01/11/24 History gly)-folic acid 1 mg-mvit,min#38 tablet lsbvetgi-ycp-Ja-FA 1 mg 1 tab PO 01/11/24 History tablet Patient History Social History Smoking Status: Never smoker Hx Alcohol Use: No Hx Substance Use: No Preferred Language: Welsh Communication Ability: Effective Supply Chain Director Required: No Beliefs That Will Affect Care: None marital status: Single Current Living Situation Comment: Mother, Father, 3 siblings Other Information That Helps Us Care for You: No Feels Safe at Home: Yes Safety Concerns: Feels Safe At This Time Assistive Devices: None BLEND TECHNICIAN History no history of STDs, no history of chlamydia, gonorrhea, herpes Physical Exam Constitutional: WD/WN, vitals as above well developed, well nourished and comfortable Genitourinary: normal external appearance OB Exam Abdomen: + vertex Manual OB Exam: + cervical dilation 5 cm, + cervical effacement 90% and + station -1 ( bulging bag, AROM, clear fluid) OB Exam Monitor Tracing: + external uterine monitor used and + category I Results & Data Vital Signs (Past 12 Hours) Vital Signs Temp Pulse Resp BP Pulse Ox O2 Del Method 01/11/24 09:19 102 H 96 01/11/24 09:18 95 H 131/70 91 01/11/24 09:14 103 H 96 01/11/24 09:13 96 H 131/65 01/11/24 09:09 92 H 97 01/11/24 09:06 96 H 132/67 01/11/24 09:04 100 01/11/24 09:04 92 H 01/11/24 09:04 105 H 138/64 01/11/24 09:02 95 H 135/66 01/11/24 09:00 99 H 18 134/63 01/11/24 08:59 99 H 96 01/11/24 08:58 97 H 130/62 01/11/24 08:56 89 132/64 01/11/24 08:54 96 01/11/24 08:54 93 H 01/11/24 08:54 94 H 129/62 94 01/11/24 08:52 94 H 129/66 01/11/24 08:50 91 H 126/69 01/11/24 08:49 91 H 96 01/11/24 08:48 92 H 130/72 01/11/24 08:46 96 H 127/79 01/11/24 08:44 95 H 126/76 97 01/11/24 08:42 90 128/73 01/11/24 08:40 89 133/78 01/11/24 08:39 96 H 97 01/11/24 08:38 91 H 147/87 H 01/11/24 08:36 89 140/85 01/11/24 08:34 99 01/11/24 08:34 88 01/11/24 08:34 93 H 144/83 H 01/11/24 08:32 86 145/70 H 01/11/24 08:30 98 H 145/89 H 01/11/24 08:29 111 H 18 96 01/11/24 08:28 93 H 139/86 05/2024 08:24 98 H 97 01/11/24 08:19 91 H 98 01/11/24 08:14 95 H 98 01/11/24 08:09 97 H 98 01/11/24 08:04 94 H 98 01/11/24 07:15 37.0 C 81 18 132/76 01/11/24 07:09 Room Air 01/11/24 04:29 16 01/11/24 04:29 36.6 C 16 01/11/24 04:23 86 122/77 01/11/24 00:27 36.9 C 16 Laboratory Results Lab Results 01/11/24 Range/Units 04:03 WBC 13.25 H (4.8-10.8) K/ul RBC 4.03 L (4.20-5.40) M/uL Hgb 11.3 L (12.0-16.0) g/dl Hct 34.4 L (37.0-47.0) % MCV 85.4 (80.0-100.0) fL MCH 28.0 (25.0-34.0) pg MCHC 32.8 (32.0-36.0) g/dL RDW Std Deviation 44.4 (36.4-46.3) fL RDW Coeff of Endy 14.3 (11.5-14.5) % Plt Count 221 (130-400) K/uL MPV 10.2 (9.4-12.4) fL Blood Type O Positive Antibody Screen NEGATIVE (2) Obesity affecting in third trimester, antepartum Obesity type affecting : unspecified obesity Qualified Code(s): O99.213 - Obesity complicating , third trimester
[2024-01-11] MEDS ORDERED: CALCIUM CARBONATE 500 MG CHEWABLE TAB PO PRN (09:29)
[2024-01-11] MEDS ORDERED: ACETAMINOPHEN 325 MG TAB PO PRN ×2 (09:29→15:19)
[2024-01-11] MEDS: fentaNYL citrate PF 100 MCG/2 ML VIAL EPI STA (09:31)
[2024-01-11] MEDS: LIDOCAINE 2%/EPINEPHRINE 1:200,000 20 ML PF EPI STA (09:31)
[2024-01-11] MEDS: BUPIVACAINE 0.25% PF 30 ML VIAL EPI STA (09:31)
[2024-01-11] MEDS: SODIUM CHLORIDE 0.9% PF INJ 10 ML VIAL EPI STA (09:31)
[2024-01-11] MEDS: OXYTOCIN 30 UNITS/NSS 30 UNITS/500 ML BAG IV PRN ×2 (10:00→15:20)
[2024-01-11] MEDS: fentaNYL citrate PF 100 MCG/2 ML VIAL EPI PRN (13:14)
--- NOTE | 2024-01-11 13:57 | Obstetrical Progress Note ---
Date of Service January 11, 2024 Assessment & Plan Admission and Anticipated Discharge Date Admission Date: January 11, 2024 Subjective Patient was painful and epidural was re-dosed and fully dilated to desired to push with urge, she pushed for about 20 minutes and now pain has resolved. No more urge to push. Desires to labor down VE; 10/ 100 %/ +2 FHR categ I Continue to monitor closely Results & Data Vital Signs (Past 12 Hours) Vital Signs Temp Pulse Resp BP Pulse Ox O2 Del Method 01/11/24 13:52 94 H 125/62 01/11/24 13:50 94 01/11/24 13:50 102 H 01/11/24 13:50 98 H 127/61 01/11/24 13:48 93 H 125/57 L 88 L 01/11/24 13:46 98 H 137/63 01/11/24 13:45 100 H 89 L 01/11/24 13:42 88 134/63 01/11/24 13:40 94 01/11/24 13:40 83 01/11/24 13:40 117 H 105/68 01/11/24 13:38 80 132/62 01/11/24 13:36 76 131/60 01/11/24 13:35 83 94 01/11/24 13:34 115 H 174/142 H 87 L 01/11/24 13:30 94 H 82 L 01/11/24 13:29 92 H 143/65 H 95 01/11/24 13:27 129 H 135/69 01/11/24 13:24 80 L 01/11/24 13:24 98 H 01/11/24 13:24 98 H 92 01/11/24 13:20 98 H 179/72 H 01/11/24 13:19 95 H 100 01/11/24 13:18 96 H 150/82 H 01/11/24 13:16 82 149/79 H 01/11/24 13:14 98 H 158/88 H 97 01/11/24 13:09 102 H 95 01/11/24 13:04 88 97 01/11/24 12:59 99 H 98 01/11/24 12:54 97 H 94 01/11/24 12:51 90 145/94 H 01/11/24 12:49 90 97 01/11/24 12:44 119 H 88 L 01/11/24 12:41 114 H 88 L 05 12:39 111 H 99 05 12:38 108 H 166/93 H 05 12:35 106 H 92 05 12:34 105 H 169/98 H 100 05 12:29 95 H 100 05 12:24 97 H 99 05 12:21 94 H 127/100 88 L 05 12:19 92 H 98 05 12:14 86 100 05 12:09 78 98 05 12:06 76 131/84 05 12:04 76 99 05 11:59 87 99 05 11:54 90 98 05 11:50 87 125/67 05 11:49 88 99 05 11:44 83 99 05 11:39 86 98 05 11:35 86 135/81 05 11:34 87 100 05 11:30 18 05 11:30 18 05 11:29 82 99 05 11:24 79 100 05 11:19 100 05 11:19 83 05 11:19 78 130/75 05 11:14 83 99 05 11:09 78 99 05 11:04 84 130/76 100 05 11:00 16 05 11:00 36.7 C 16 05 10:59 80 99 05/24 10:54 85 99 05/ 10:49 98 05/ 10:49 84 05/ 10:49 75 136/79 05 10:44 80 97 05 10:39 77 97 05 10:34 83 130/86 94 05/ 10:29 78 97 05/ 10:24 84 97 05/2024 10:20 81 134/80 05/20 10:19 105 H 99 05 10:17 91 H 93 05/20/24 10:14 94 H 96 052024 10:09 92 H 95 0520 10:04 96 0520 10:04 91 H 05 10:04 96 H 93 01/11/24 10:00 16 05 10:00 16 01/11/24 09:59 90 96 05 09:58 94 H 114/65 0520 09:54 91 H 96 01/11/24 09:53 100 H 114/65 92 05 09:49 95 01/11/24 09:49 94 H 01/11/24 09:49 84 105/59 L 01/11/24 09:44 93 H 110/63 96 01/11/24 09:39 98 H 96 01/11/24 09:38 93 H 147/62 H 01/11/24 09:34 95 H 97 01/11/24 09:33 90 127/72 05 09:30 18 01/11/24 09:30 18 01/11/24 09:29 100 H 98 01/11/24 09:28 99 H 131/75 05 09:24 95 H 96 01/11/24 09:23 97 H 133/77 05 09:19 102 H 96 01/11/24 09:18 95 H 131/70 91 05 09:15 18 01/11/24 09:15 36.9 C 18 01/11/24 09:14 103 H 96 01/11/24 09:13 96 H 131/65 0520 09:09 92 H 97 01/11/24 09:06 96 H 132/67 0520 09:04 100 05 09:04 92 H 05 09:04 105 H 138/64 0520 09:02 95 H 135/66 052024 09:00 99 H 18 134/63 052024 08:59 99 H 96 052024 08:58 97 H 130/62 05/2024 08:56 89 132/64 05/20/24 08:54 96 05/20 08:54 93 H 052024 08:54 94 H 129/62 94 05/2024 08:52 94 H 129/66 01/11/24 08:50 91 H 126/69 01/11/24 08:49 91 H 96 01/11/24 08:48 92 H 130/72 05 08:46 96 H 127/79 01/11/24 08:44 95 H 126/76 97 01/11/24 08:42 90 128/73 01/11/24 08:40 89 133/78 01/11/24 08:39 96 H 97 01/11/24 08:38 91 H 147/87 H 01/11/24 08:36 89 140/85 01/11/24 08:34 99 01/11/24 08:34 88 01/11/24 08:34 93 H 144/83 H 01/11/24 08:32 86 145/70 H 01/11/24 08:30 98 H 145/89 H 01/11/24 08:29 111 H 18 96 01/11/24 08:28 93 H 139/86 01/11/24 08:24 98 H 97 01/11/24 08:19 91 H 98 01/11/24 08:14 95 H 98 01/11/24 08:09 97 H 98 01/11/24 08:04 94 H 98 01/11/24 07:15 37.0 C 81 18 132/76 01/11/24 07:09 Room Air 01/11/24 04:29 16 01/11/24 04:29 36.6 C 16 01/11/24 04:23 86 122/77
[2024-01-11] MEDS: LIDOCAINE 1% LOCAL 20 ML VIAL INFIL PRN (14:48)
[2024-01-11] MEDS: METHYLERGONOVINE MALEATE 0.2 MG/ML AMP ONE (14:54)
[2024-01-11] MEDS ORDERED: oxyCODONE/ACETAMINOPHEN 5mg/325mg TAB PO PRN (15:19)
[2024-01-11] MEDS ORDERED: HYDROCORTISONE ACETATE 25 MG SUPP PR PRN (15:19)
[2024-01-11] MEDS ORDERED: OXYTOCIN 30 UNITS/NSS 30 UNITS/500 ML BAG IV PRN (15:19)
[2024-01-11] MEDS ORDERED: bisacodyL 10 MG SUPP PR PRN (15:19)
--- NOTE | 2024-01-11 15:28 | Delivery Summary ---
Vaginal Delivery Summary Date of Service January 11, 2024 Vaginal Delivery Summary Patient was found to be fully dilated and desired to push for about 20 minutes and then labored down. She pushed for another 10 min and delivered the head and then shoulders with minimal traction. Tight nuchal cordx2 noted and reduced. The baby was handed off to the mother. The cord was clampedx2 and cut at 1 minute. The vagina and perineum were checked and found to have 1st degree vaginal/ hymenal laceration at 4 o'clock position and clitoral/ periurethral laceration. 1% lidocaine was used for LA. The clitoral/ periurethral laceration was repaired with 3/ 0 Vicryl on SG needle. It was close to urethral opening, so Floey catheter was inserted. The vaginal mucosa with hymenal tear was repaired with 2/0 vicryl on continuous running fashion. Excellent hemostasis was achieved. The placenta was delivered spontaneously as intact and complete. The uterus was explored and found to be empty. QBL was 457 ml. The fundus was firm The baby was a viable male infant, Apgars 8/9, the weight is pending. The mother and the baby tolerated the procedure well. No complications happened and I was present during whole procedure.
[2024-01-11] MEDS: IBUPROFEN 600 MG TAB PO PRN (16:31)
[2024-01-11] MEDS: ePHEDrine sulfate 50 MG/ML AMP ONE (18:05)
[2024-01-11] MEDS: METHYLERGONOVINE MALEATE 0.2 MG TAB PO SCH (18:15)
[2024-01-11] MEDS: METHYLERGONOVINE MALEATE 0.2 MG/ML AMP IM ONE (18:29)
[2024-01-11] MEDS: MEASLES, MUMPS & RUBELLA VIRUS VACCINE (MMR) 0.5ML VIAL SQ ONE (18:30)
[2024-01-11] MEDS: DIPHTHER/TETAN/PERTUS Vaccine (Tdap, Adol/Adult) 0.5mL IM ONE (18:30)
--- NOTE | 2024-01-11 18:43 | Anesthesia Procedure Note ---
Date of Service January 11, 2024 Anesthesia Epidural Re-Dose Vital Signs Temp Pulse Resp BP Pulse Ox O2 Del Method 36.9 C 83 20 125/77 97 Room Air 01/11/24 18:00 01/11/24 18:00 01/11/24 18:00 01/11/24 18:00 01/11/24 18:00 01/11/24 18:00 Notes Pain Intensity: 3 Dilatation (cm): 10.0 Effacement (%): 100 Called by nursing to evaluate epidural as the patient is having increased pain. The epidural was re-dosed with the following medications (all medications via epidural route) after negative aspiration of the epidural catheter for CSF/HEME. 2% lidocaine 5ml with fentanyl 100mcg. After Epidural Re-Dose Mental Status: alert / awake / arousable Pain: improving with treatment Airway Patency, RR, SpO2: stable & adequate BP & HR: stable & adequate
--- NOTE | 2024-01-11 18:44 | Anesthesia Procedure Note ---
Date of Service January 11, 2024 Anesthesia Post Epidural Note Vital Signs Vital Signs: Temp Pulse Resp BP Pulse Ox O2 Del Method 36.9 C 83 20 125/77 97 Room Air 01/11/24 18:00 01/11/24 18:00 01/11/24 18:00 01/11/24 18:00 01/11/24 18:00 01/11/24 18:00 Pain Intensity Abdomen: Pain Intensity: 1 Perineal: Pain Intensity: 3 Notes Mental Status: alert / awake / arousable Nausea / Vomiting: adequately controlled Pain: adequately controlled Airway Patency, RR, SpO2: stable & adequate BP & HR: stable & adequate Hydration State: stable & adequate Neuraxial Anesthesia: was administered and sensory block is resolving Anesthetic Complications: no major complications apparent and Pt Satisfied with anesthetic care Epidural: Removed without complications and With tip intact
[2024-01-11] MEDS: BENZOCAINE 20% SPRY 85 APPLN/85 GM CAN EXT PRN (21:22)
[2024-01-11] MEDS: DOCUSATE SODIUM 100 MG CAP PO SCH (21:23)
[2024-01-12 06:42] LABS: Hematocrit (blood only) 32.5 % (37.0-47.0); Hemoglobin 10.6 g/dl (12.0-16.0); Mean Corpuscular Hemoglobin 28.2 pg (25.0-34.0); Mean Corpuscular Hgb Conc 32.6 g/dL (32.0-36.0); Mean Corpuscular Volume 86.4 fL (80.0-100.0); Mean Platelet Volume 10.4 fL (9.4-12.4); Platelet Count 193 K/uL (130-400); RDW Coefficient of Variation 14.5 % (11.5-14.5); RDW Standard Deviation 45.2 fL (36.4-46.3); Red Blood Count 3.76 M/uL (4.20-5.40); White Blood Count 11.05 K/ul (4.8-10.8)
[2024-01-12] MEDS: PRENATAL VITAMIN 1 TAB PO SCH (08:50)
[2024-01-12] MEDS: FERROUS SULFATE 325 MG TAB PO SCH (08:50)
--- NOTE | 2024-01-12 10:15 | Obstetrical Progress Note ---
Date of Service January 12, 2024 Subjective Ambulation: ambulating normally Voiding: no voiding problems Passing Gas:: Yes Diet Tolerance:: regular diet Lochia:: Small Feeding Type:: breast feeding Current Pain Level(1-10): 0 doing well Physical Exam Constitutional WD/WN, vitals as above Gastrointestinal (Abdomen) Inspection/Auscultation: abdomen normal to inspection Musculoskeletal Extremities: extremities normal to inspection Skin no rashes, warm and dry Neurologic patellar DTR's 2+ bilat, sensation intact Psychiatric A+Ox3, euthymic affect fundus firm below U Results & Data Vital Signs (Past 12 Hours) Vital Signs Temp Pulse Resp BP Pulse Ox O2 Del Method 01/12/24 03:00 36.8 C 88 16 114/76 97 Room Air 01/11/24 23:25 36.6 C 92 H 16 149/79 H 97 Room Air
[2024-01-12] MEDS: bisacodyL 5 MG TABEC PO SCH (20:47)
[2024-01-13 06:46] LABS: Hematocrit (blood only) 28.7 % (37.0-47.0); Hemoglobin 9.5 g/dl (12.0-16.0)
--- NOTE | 2024-01-13 07:52 | Obstetrical Progress Note ---
Date of Service January 13, 2024 Assessment & Plan (1) Normal course: Continue routine care Discharge home today with follow-up in clinic in discharge instructions (2) Anemia, : Continue iron twice a day with stool softener Subjective Ambulation: ambulating normally Voiding: no voiding problems Passing Gas:: Yes Diet Tolerance:: regular diet Lochia:: Small Feeding Type:: breast feeding Current Pain Level(1-10): 4 Patient currently sitting comfortably in bed, breast-feeding infant. Notes she is having some cramping and would like Motrin by nursing staff. No other complaints at this time. Would like to go home today Physical Exam Constitutional WD/WN, vitals as above Respiratory normal respiratory effort, lungs clear to auscultation Cardiovascular RRR, no murmur, no edema Gastrointestinal (Abdomen) normal bowel sounds, soft, nontender, no hepatosplenomegaly fundus below U Results & Data Vital Signs (Past 12 Hours) Vital Signs Temp Pulse Resp BP Pulse Ox O2 Del Method 01/13/24 03:51 36.7 C 93 H 18 116/72 98 Room Air 01/12/24 20:45 36.8 C 106 H 18 133/87 98 Room Air Laboratory Results Laboratory Results WBC 11.05 K/ul (4.8-10.8) H 01/12/24 06:00 RBC 3.76 M/uL (4.20-5.40) L 01/12/24 06:00 Hgb 9.5 g/dl (12.0-16.0) L 01/13/24 06:04 Hct 28.7 % (37.0-47.0) L 01/13/24 06:04 MCV 86.4 fL (80.0-100.0) 01/12/24 06:00 MCH 28.2 pg (25.0-34.0) 01/12/24 06:00 MCHC 32.6 g/dL (32.0-36.0) 01/12/24 06:00 RDW Std Deviation 45.2 fL (36.4-46.3) 01/12/24 06:00 RDW Coeff of Endy 14.5 % (11.5-14.5) 01/12/24 06:00 Plt Count 193 K/uL (130-400) 01/12/24 06:00 MPV 10.4 fL (9.4-12.4) 01/12/24 06:00 Blood Type O Positive 01/11/24 04:03 Antibody Screen NEGATIVE 01/11/24 04:03
== END 2024-01-13 12:15 | disposition home or self-care (01) | DRG 807 ==
LOC: OPB 00:02 → 4S1 00:09 → 4E2 17:45